=== PATIENT | female | born 1975 | race Caucasian/White ===

== ENCOUNTER → 2016-10-22 | Outpatient (CLI) | payer OTHER ==
[2016-10-22 12:48] LABS: Basophils % (A) 1 %; CH 30.8; CHCM 32.1; Eosinophils # (A) 0.2 k/uL (0-0.7); Eosinophils % (A) 2 %; HCT 40.7 % (34.0-46.0); HDW 2.19; Luc # (Auto) 0.15; Luc % (Auto) 2; Lymphocytes # (A) 2.1 k/uL (1.0-4.8); Lymphocytes % (A) 27 %; MCH 30.8 pg (25.0-35.0); MCV 96.2 fL (80.0-100.0); Mean Platelet Volume 7.1; Monocytes # (A) 0.4 k/uL (0-1.0); Monocytes % (A) 5 %; Neutrophils % (A) 64 %; RBC 4.22 m/uL (3.80-5.40); RDW 13.7 % (11.5-15.5); WBC 7.8 k/uL (3.8-10.6); WBC (Perox) 8.14
== END | disposition home or self-care (01) ==
LOC: LABPAT 11:25
PROVIDERS: ATTEND Obstetrics & Gynecology
DX: Z01.812 Encounter for preprocedural laboratory examination (principal)
CPT/HCPCS: 85025

== ENCOUNTER 2016-10-26 06:47 | Day surgery (SDC) | payer OTHER ==
[2016-10-25 13:08] VITALS: BMI 23.2
[~2016-10-26 06:47] MED LIST: DEXAMETHASONE SOD PHOSPHATE 10 MG/ML 1 ML VIAL IV ONE; LACTATED RINGERS 1,000 ML IV SCH; LIDOCAINE 1% 20 ML VIAL (10MG/ML) FOR IV START INTRADERMA PRN; MIDAZOLAM 2 MG/2 ML VIAL IV PRN; ONDANSETRON 4 MG/2 ML VIAL IVP ONE; Pre Op ABX Message 1 EACH MISC MISCELLANE ONE; SCOPOLAMINE 1.5MG/72HR PATCH TRANSDERM ONE
[2016-10-26] MEDS ORDERED: LACTATED RINGERS 1,000 ML IV ONE (06:51)
[2016-10-26] MEDS ORDERED: LIDOCAINE 1% 20 ML VIAL (10MG/ML) FOR IV START INTRADERMA ONE (07:02)
[2016-10-26] MEDS ORDERED: IODINE/POTASS IOD (LUGOLS) BTL TOPICAL ONE (07:25)
[2016-10-26] MEDS ORDERED: BUPIVACAINE (PF) 0.25% 30 ML VIAL SQ ONE ×2 (07:25)
--- NOTE | 2016-10-26 07:47 | P.HPOB ---
History of Present Illness H&P Date: 10/26/16 Chief Complaint: Planning and cervical dysplasia Ines is a 41-year-old female who is completed her family planning and desires permanent sterilization. She is scheduled for left scopic tubal occlusion with Filshie clips. 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 Risks/benefits/alternatives to this procedure were discussed with the patient in detail and all questions are answered prior to proceeding to the operating room. On physical exam vital signs are stable and afebrile. Heart regular, lungs clear, extremities without pain. Osteopathic exam unremarkable. Past Medical History Past Medical History: Asthma Additional Past Medical History / Comment(s): ASTHMA YOUNG CHILD. HX ABN PAP TESTS. History of Any Multi-Drug Resistant Organisms: None Reported Past Surgical History: No Surgical Hx Reported Past Anesthesia/Blood Transfusion Reactions: No Reported Reaction Additional Past Anesthesia/Blood Transfusion Reaction / Comment(s): NO PREVIOUS ANESTHESIA Past Psychological History: No Psychological Hx Reported Smoking Status: Current every day smoker Past Alcohol Use History: None Reported Additional Past Alcohol Use History / Comment(s): SMOKED SINCE 1993, < 1PPD. Past Drug Use History: None Reported - Past Family History Mother Family Medical History: No Reported History Medications and Allergies Home Medications Medication Instructions Recorded Confirmed Type No Known Home Medications [No 10/25/16 10/25/16 History Known Home Medications] Allergies Allergy/AdvReac Type Severity Reaction Status Date / Time No Known Allergies Allergy Verified 10/25/16 12:48 Exam Osteopathic Statement: *. No significant issues noted on an osteopathic structural exam other than those noted in the History and Physical/Consult. - Vital Signs Vital signs: Vital Signs Temp Pulse Resp BP Pulse Ox 10/26/16 06:59 98 F 90 18 127/65 98 Intake and Output 10/25/16 10/26/16 10/26/16 22:59 06:59 14:59 Intake Total 100 Balance 100 Intake: IV 100 - OBG Physical Exam Breast: both: normal (no masses) Abdomen: bowel sounds normal, no diffuse tenderness, no bruit present, no guarding noted, no hepatomegaly, no splenomegaly, no mass Vulva: both: normal Vagina: normal moisture, no discharge Cervix: lesion (STEPHANIE III) Uterus: normal size, normal contour Adnexa: both: normal
[2016-10-26] MEDS ORDERED: NEOSTIGMINE 1 MG/ML 10 ML VIAL ONE (07:53)
[2016-10-26] MEDS ORDERED: LIDOCAINE 1% INJ 10MG/ML (20 ML MDV) ONE (07:53)
[2016-10-26] MEDS ORDERED: ROCURONIUM BROMIDE 10 MG/ML 10 ML VIAL IV ONE (07:53)
[2016-10-26] MEDS ORDERED: MIDAZOLAM 2 MG/2 ML VIAL ONE (07:53)
[2016-10-26] MEDS ORDERED: SUCCINYLCHOLINE CHLORIDE 100 MG/5 ML SYR IV ONE (07:53)
[2016-10-26] MEDS ORDERED: PROPOFOL 10 MG/ML 20 ML VIAL IV ONE (07:53)
[2016-10-26] MEDS ORDERED: fentaNYL (PF) 50 MCG/ML 2 ML AMP ONE (07:53)
[2016-10-26] MEDS ORDERED: KETOROLAC 30 MG/ML 1 ML VIAL ONE (07:53)
[2016-10-26] MEDS ORDERED: GLYCOPYRROLATE 0.2 MG/ML 2 ML VIAL ONE (07:53)
[2016-10-26] MEDS ORDERED: FERRIC SUBSULFATE (MONSELS) JAR TOPICAL ONE (08:32)
--- NOTE | 2016-10-26 08:43 | P.OP ---
Date of Procedure: 10/26/16 Preoperative Diagnosis: Family planning and STEPHANIE-3 Postoperative Diagnosis: Same Procedure(s) Performed: Laparoscopic tubal occlusion Filshie clips and a LEEP colposcopy Anesthesia: MELISSAA Surgeon: Asa Maldonado Estimated Blood Loss (ml): 50 Urine output (ml): 10 Pathology: other (Anterior and posterior cervical pieces as well as endocervical portion) Condition: stable Disposition: same day Operative Findings: Incidental finding of bilateral simple ovarian cysts approximately 2 cm Description of Procedure: Patient was taken to the operating suite where a general anesthetic was found to be adequate. She was prepped and draped in the normal sterile fashion and placed in the dorsal lithotomy position. Initially a weighted speculum was inserted anterior lip cervix identified grasped single-toothed tenaculum. An acorn manipulator was then inserted without difficulty and speculum was removed. Red rubber catheter was used to drain the bladder of approximately 10 mL of clear yellow urine. Once is accomplished gloves were changed and attention was turned to abdominal portion procedure where by approximately 2 mL of quarter percent Marcaine were injected periumbilically and through this injected anesthetic a 5 mm skin incision was made. Through this incision a 5 mm trocar and sleeve were inserted without difficulty and once peritoneal placement was assured gas was allowed to fully insufflate the abdomen. Patient was then placed in steep Trendelenburg position and a second millimeters skin incision was made 3 cm above the pubic symphysis in the midline. Through this incision again under direct visualization an 8 mm port and sleeve were inserted. Once this was accomplished observations pelvis were noted there were simple cysts on both right and left ovary as she did not consent for drainage of cysts and they were not causing her any problems they were left alone. Arthritis and left tube had a Filshie clip applied 2 cm from uterine cornu seeing no bleeding from the mesosalpinx incidents of instruments were removed and gas was allowed to expel from the abdomen. Once this was accomplished 5 deep breaths were provided for 0 Vicryl was then used to close incision subcuticularly and the remaining local was injected around the incisions. Once this was accomplished it did return to the vagina and tenaculum and acorn were removed and a coated speculum was inserted into the vagina. Scope was then used to identify the cervix and the external cervix was coated with Lugol solution. First a posterior ectocervical piece was taken then an anterior piece and then a 1 cm loop was used to obtain an endocervical hat. Ball-tipped cautery was then used to obtain excellent hemostasis. There was a little more bleeding than I would normally see during this case partly due to that since his tenaculum causing bleeding at the outset of the case once hemostasis was felt to be obtained small amount of Monsel's was placed over the LEEP area and patient was taken to the recovery room in stable and satisfactory condition. Sponge, lap, needle counts were all correct 2. Plan - Discharge Summary New Discharge Prescriptions: Acetaminophen-Codeine 300-30mg [Tylenol #3] 1 tab PO Q4H PRN #30 tablet PRN Reason: Pain Ibuprofen [Motrin] 600 mg PO Q6HR PRN #30 tab PRN Reason: Pain Discharge Medication List Acetaminophen-Codeine 300-30mg [Tylenol #3] 1 tab PO Q4H PRN #30 tablet [Rx] Ibuprofen [Motrin] 600 mg PO Q6HR PRN #30 tab 10/26/16 [Rx] Follow up Appointment(s)/Referral(s): Asa Maldonado DO [Doctor of Osteopathic Medicine] - 2 Weeks Activity/Diet/Wound Care/Special Instructions: Complete pelvic rest for next 2-3 weeks. No heavy lifting, limit stairs and driving the next couple of days. If any high temperatures, heavy bleeding, or severe pain coated emergency room or call our office. Discharge Disposition: HOME SELF-CARE
[2016-10-26 08:51] VITALS: TEMP 97.6
[2016-10-26] MEDS: HYDROmorphone 1 MG/ML 1 ML SYRINGE IVP PRN ×2 (08:56→09:05)
[2016-10-26 09:03] VITALS: RESP 16
[2016-10-26] MEDS ORDERED: Acetaminophen-Codeine 300-30mg TAB PO ONE (09:56)
[2016-10-26 10:24] VITALS: BP 122/76; PULSE 54
== END 2016-10-26 11:13 | disposition home or self-care (01) ==
LOC: OR 06:47
PROVIDERS: ATTEND Obstetrics & Gynecology
DX: D06.0 Carcinoma in situ of endocervix (principal); N83.292 Other ovarian cyst, left side; N83.291 Other ovarian cyst, right side; Z30.2 Encounter for sterilization; J45.909 Unspecified asthma, uncomplicated; F17.200 Nicotine dependence, unspecified, uncomplicated
CPT/HCPCS: 58671; 57460; 81025; 88305; 88307; J2250; J1100; J2710; J2405; J2001; J3010; J1885; J1170; J0330; J2704

== ENCOUNTER → 2017-02-25 | Outpatient (CLI) | payer OTHER ==
--- NOTE | 2017-02-25 09:54 | MR ---
EXAMINATION TYPE: MR lumbar spine wo con DATE OF EXAM: 02/25/2017 COMPARISON: NONE HISTORY: Low back pain TECHNIQUE: Multiplanar, multisequence images of the lumbar spine were acquired. L1-L2: Normal disc appearance without desiccation. No herniation, protrusion or disc bulging. No ca nal stenosis is present. Foramina are patent bilaterally. L2-L3: Normal disc appearance without desiccation. No herniation, protrusion or disc bulging. No ca nal stenosis is present. Foramina are patent bilaterally. L3-L4: Normal disc appearance without desiccation. No herniation, protrusion or disc bulging. No ca nal stenosis is present. Foramina are patent bilaterally. L4-L5: Normal disc appearance without desiccation. No herniation, protrusion or disc bulging. No ca nal stenosis is present. Foramina are patent bilaterally. L5-S1: Minimal anterolisthesis grade 1 L4-5. There is endplate discogenic marrow signal change, spond ylosis. The listhesis contributes with a broad-based disc bulge which extends circumferentially bilat erally to cause bilateral foraminal encroachment. There is facet arthropathy change present. Suspect there may be spondylolysis at L5. No significant central stenosis. Lumbar segments are intact. No paraspinal masses are identified. Conus medullaris has a normal appe arance. There is a spinal curvature convex left centered at the mid lumbar spine. IMPRESSION: Mild degenerative disc disease. Suspect spondylolysis at L5 bilateral foraminal encroachment. Facet a rthropathy and scoliosis.
== END | disposition home or self-care (01) ==
LOC: RADMRIMAIN 09:02
PROVIDERS: ATTEND Internal Medicine
DX: M51.36 Other intervertebral disc degeneration, lumbar region (principal); M46.86 Other specified inflammatory spondylopathies, lumbar region; M41.86 Other forms of scoliosis, lumbar region
CPT/HCPCS: 72148

== ENCOUNTER 2023-04-30 19:27 | Emergency (ER) | payer OTHER ==
[2023-04-30 19:37] VITALS: BP 124/80; PULSE 67; RESP 20; TEMP 98.6
[2023-04-30] MEDS ORDERED: dexAMETHasone 2 MG TAB PO STA (20:01)
[2023-04-30] MEDS ORDERED: Acetaminophen-Codeine 300-30mg TAB PO STA (20:01)
[2023-04-30] MEDS ORDERED: CLINDAMYCIN 150 MG CAP PO STA (20:02)
[2023-04-30] MEDS ORDERED: ACET/COD 300 MG/30 MG STARTER PACK 6 TAB BTL PO STA (20:02)
--- NOTE | 2023-04-30 20:09 | ED ---
General Adult HPI - General Chief complaint: Dental/Oral Stated complaint: Toothache Time Seen by Provider: 04/30/23 19:37 Source: patient, RN notes reviewed, old records reviewed Mode of arrival: ambulatory Limitations: no limitations - History of Present Illness Initial comments: Patient Is a 47-year-old female who presents emergency Department complaining of dental pain. This is been a chronic issue for her. She is trying to find an oral surgeon to remove her teeth but has been having issues due to insurance problems. Denies any difficulty swallowing, breathing. Denies cough, fevers. Denies any chest pain or abdominal pain or nausea or vomiting. Was seen by her dentist last week and prescribed amoxicillin which and to help with the pain for a few days however it stopped. Finished it yesterday.. Is seeking stronger antibiotic as well as pain control. - Related Data Previous Rx's Medication Instructions Recorded Ibuprofen [Motrin] 600 mg PO Q6HR PRN #30 tab 10/26/16 Penicillin V Potassium [Pen Vee K] 500 mg PO QID 10 Days tab 08/17/17 clindamycin HCL [Cleocin] 450 mg PO Q6H 7 Days #84 cap 04/30/23 Allergies Allergy/AdvReac Type Severity Reaction Status Date / Time No Known Allergies Allergy Verified 04/30/23 19:37 Review of Systems ROS Statement: Those systems with pertinent positive or pertinent negative responses have been documented in the HPI. Review of Systems: CONST: Denies fever EYES: Denies blurry vision ENT: Endorses dental pain C/V: Denies Chest pain RESP: Denies shortness of breath GI: Denies abdominal pain : Denies dysuria SKIN: Denies rash. MSK: Denies joint pain. NEURO: Denies headache ROS Other: All systems not noted in ROS Statement are negative. Past Medical History Past Medical History: No Reported History Additional Past Medical History / Comment(s): OB history: She has had 4 vaginal deliveries, one spontaneous and one elective . O+, abs neg, Rub Imm, RPR NR, Hep B neg. GBS neg. History of Any Multi-Drug Resistant Organisms: None Reported Past Surgical History: Tubal Ligation Past Anesthesia/Blood Transfusion Reactions: No Reported Reaction Past Psychological History: No Psychological Hx Reported Smoking Status: Current every day smoker Past Alcohol Use History: None Reported Past Drug Use History: None Reported - Past Family History Mother Family Medical History: No Reported History General Exam - General Exam Comments Initial Comments: General: Appears in no acute distress. HEAD: Normal with no signs of head trauma. EYES: EOMI. ENT: Hearing grossly intact. No stridor. Uvula midline. Tongue not swollen. Tender to palpation over the posterior upper left molars. No obvious fluctuance or abscess present. No swelling of the floor the mouth. No evidence of Walter angina. RESPIRATORY: No respiratory distress. C/V: Regular rate and rhythm. ABD: Abdomen is nondistended. EXT: No obvious deformity. SKIN: No rashes or lesions observed on exposed skin. NEURO: Alert and oriented. Limitations: no limitations Course Vital Signs 04/30/23 19:35 Temperature 98.6 F Pulse Rate 67 Respiratory 20 Rate Blood Pressure 124/80 O2 Sat by Pulse 99 Oximetry Medical Decision Making - Medical Decision Making Was pt. sent in by a medical professional or institution (, PA, BUTTER PRINTER, urgent care, hospital, or retirement...) When possible be specific @ -No Did you speak to anyone other than the patient for history (EMS, parent, family, police, friend...)? What history was obtained from this source @ -No Did you review nursing and triage notes (agree or disagree)? Why? @ -I reviewed and agree with nursing and triage notes Were old charts reviewed (outside hosp., previous admission, EMS record, old EKG, old radiological studies, urgent care reports/EKG's, retirement records)? Report findings @ -No old charts were reviewed Differential Diagnosis (chest pain, altered mental status, abdominal pain women, abdominal pain men, vaginal bleeding, weakness, fever, dyspnea, syncope, headache, dizziness, GI bleed, back pain, seizure, CVA, palpatations, mental health, musculoskeletal)? @ -Toothache, cavity, periapical abscess. This list is not all inclusive. EKG interpreted by me (3pts min.). @ -None done X-rays interpreted by me (1pt min.). @ -None done CT interpreted by me (1pt min.). @ -None done U/S interpreted by me (1pt. min.). @ -None done What testing was considered but not performed or refused? (CT, X-rays, U/S, labs)? Why? @ -None What meds were considered but not given or refused? Why? @ -None Did you discuss the management of the patient with other professionals (professionals i.e. , PA, BUTTER PRINTER, lab, RT, psych nurse, vp digital marketing social media and crm, casualty claim adjuster, teacher, ethics officer, showcase maker)? Give summary @ -No Was smoking cessation discussed for >3mins.? @ -No Was critical care preformed (if so, how long)? @ -No Were there social determinants of health that impacted care today? How? (Homelessness, low income, unemployed, alcoholism, drug addiction, transportation, low edu. Level, literacy, decrease access to med. care, residential, rehab)? @ -No Was there de-escalation of care discussed even if they declined (Discuss DNR or withdrawal of care, Hospice)? DNR status @ -No What co-morbidities impacted this encounter? (DM, HTN, Smoking, COPD, CAD, Cancer, CVA, ARF, Chemo, Hep., AIDS, mental health diagnosis, sleep apnea, morbid obesity)? @ -None Was patient admitted / discharged? Hospital course, mention meds given and route, prescriptions, significant lab abnormalities, going to OR and other pertinent info. @ -Based on the patient's presentation and physical exam, presents with acute on chronic tooth pain. No obvious findings on exam other than pain. She is requesting antibiotics and will be started on clindamycin and given a dose of Decadron, as well as given a dose of pain medications. Patient was in agreement this plan. Vital signs within acceptable limits. No evidence of Walter angina on exam. A starter pack of Tylenol 3's were provided to the patient. Strict return precautions discussed. Recommended follow-up with dentistry. I will provide the patient with a prescription for clindamycin. I instructed the patient to follow up with their PCP in the next 1-3 days. I provided contact information for follow up with Dr. Colbert. I explained that the patient should return to the emergency department if they experience any worsening symptoms. Strict return precautions were discussed with the patient. The patient expressed understanding of these instructions. I answered all questions that the patient had. The patient was discharged home in good condition with their prescriptions and follow up information. Undiagnosed new problem with uncertain prognosis? @ -No Drug Therapy requiring intensive monitoring for toxicity (Heparin, Nitro, Insulin, Cardizem)? @ -No Were any procedures done? @ -No Diagnosis/symptom? @ -Toothache Acute, or Chronic, or Acute on Chronic? @ -Acute on chronic Uncomplicated (without systemic symptoms) or Complicated (systemic symptoms)? @ -Uncomplicated Side effects of treatment? @ -No Exacerbation, Progression, or Severe Exacerbation? @ -No Poses a threat to life or bodily function? How? (Chest pain, [place], [place], pneumonia, PE, COPD, DKA, ARF, appy, cholecystitis, CVA, Diverticulitis, Homicidal, Suicidal, threat to staff... and all critical care pts) @ -No Disposition Clinical Impression: Toothache Disposition: HOME SELF-CARE Condition: Good Instructions (If sedation given, give patient instructions): Toothache (ED) Prescriptions: clindamycin HCL [Cleocin] 450 mg PO Q6H 7 Days #84 cap Is patient prescribed a controlled substance at d/c from ED?: No Referrals: Kenisha Albert [Primary Care Provider] - 1-2 days Jese Colbert DDS [STAFF PHYSICIAN] - 1-2 days Time of Disposition: 20:06
== END 2023-04-30 20:28 | disposition home or self-care (01) ==
LOC: EC 19:27
DX: K08.89 Other specified disorders of teeth and supporting structures (principal); F17.200 Nicotine dependence, unspecified, uncomplicated
CPT/HCPCS: 99282; J8540

== ENCOUNTER 2024-10-01 12:32 | Emergency (ER) | payer OTHER ==
[2024-10-01 12:49] VITALS: RESP 18; TEMP 98.4
[2024-10-01 13:30] LABS: Basophils # (A) 0.1 k/uL (0-0.2); Basophils % (A) 1 %; Eosinophils # (A) 0.4 k/uL (0-0.7); Eosinophils % (A) 4 %; HCT 43.8 % (34.0-46.0); HGB 14.2 gm/dL (11.4-16.0); Lymphocytes # (A) 2.6 k/uL (1.0-4.8); Lymphocytes % (A) 31 %; MCH 31.1 pg (25.0-35.0); MCHC 32.5 g/dL (31.0-37.0); MCV 95.8 fL (80.0-100.0); Mean Platelet Volume 7.4; Monocytes # (A) 0.5 k/uL (0-1.0); Monocytes % (A) 5 %; Neutrophils # (A) 4.9 k/uL (1.3-7.7); Neutrophils % (A) 58 %; Platelet Count 360 k/uL (150-450); RBC 4.58 m/uL (3.80-5.40); RDW 13.3 % (11.5-15.5); WBC 8.5 k/uL (3.8-10.6)
[2024-10-01 13:35] LABS: Appearance,Urine Cloudy (Clear); Bilirubin,Urine Negative (Negative); Blood,Urine Negative (Negative); Color,Urine Yellow; Glucose,Urine (UA) Negative (Negative); Ketones,Urine Negative (Negative); Leukocyte Esterase,Urine Moderate (Negative); Mucus,Urine Few /hpf; Nitrite,Urine Negative (Negative); PH, Urine 5.5 (5.0-8.0); Protein,Urine Trace (Negative); RBC,Urine 9 /hpf (0-5); Specific Gravity,Urine 1.032 (1.001-1.035); Squamous Epithelial Cell,Urine 2 /hpf (0-4); WBC,Urine 23 /hpf (0-5)
[2024-10-01] MEDS: ONDANSETRON 4 MG/2 ML VIAL IVP STA (13:36)
[2024-10-01] MEDS: SODIUM CHLORIDE 0.9% 1,000 ML IV STA (13:36)
[2024-10-01] MEDS: MORPHINE SULFATE 4 MG/ML SYRINGE IVP STA ×2 (13:37→15:01)
[2024-10-01] MEDS: KETOROLAC 15 MG/ML 1 ML VIAL IVP STA (13:37)
[2024-10-01 13:53] LABS: ALT 16 U/L (4-34); African American GFR (CKD) >90 (>60 ml/min/1.73 sqM); Anion Gap 9 mmol/L; Blood Urea Nitrogen 9 mg/dL (7-17); Calcium 10.5 mg/dL (8.4-10.2); Carbon Dioxide 21 mmol/L (22-30); Chloride 107 mmol/L (98-107); Glucose 101 mg/dL (74-99); Non-African American GFR(CKD) >90 (>60 ml/min/1.73 sqM); Sodium 137 mmol/L (137-145); Total Bilirubin 0.8 mg/dL (0.2-1.3)
--- NOTE | 2024-10-01 13:58 | ED ---
General Adult HPI - General Chief complaint: Abdominal Pain Stated complaint: Poss Kidney Stones Time Seen by Provider: 10/01/24 13:00 Source: patient, RN notes reviewed, old records reviewed Mode of arrival: ambulatory Limitations: no limitations - History of Present Illness Initial comments: Patient is a 49-year-old female presents emergency department complaining of abdominal pain. States she is having bilateral flank and abdominal pain however primarily on the left side. Radiates down towards her groin as well as to her back. States she does have a history of urinary issues and overactive bladder. No history of stones. Has not noticed any blood in her urine. Denies any obvious dysuria. Denies vaginal discharge or bleeding. States she is not . Denies any diarrhea. Does endorse some mild nausea. No other significant medical problems. Presents over concern for the flank and abdominal pain. - Related Data Home Medications Medication Instructions Recorded Confirmed Acetaminophen Tab [Tylenol Tab] 1,000 mg PO Q6HR PRN 10/01/24 10/01/24 Cholecalciferol (Vitamin D3) 50 mcg PO HS 10/01/24 10/01/24 [Vitamin D3 (50 Mcg = 2000 Iu)] oxyBUTYnin chloride [oxyBUTYnin 5 mg PO HS 10/01/24 10/01/24 chloride ER] Allergies Allergy/AdvReac Type Severity Reaction Status Date / Time No Known Allergies Allergy Verified 10/01/24 15:30 Review of Systems ROS Statement: Those systems with pertinent positive or pertinent negative responses have been documented in the HPI. ROS Other: All systems not noted in ROS Statement are negative. Past Medical History Past Medical History: No Reported History Additional Past Medical History / Comment(s): OB history: She has had 4 vaginal deliveries, one spontaneous and one elective . O+, abs neg, Rub Imm, RPR NR, Hep B neg. GBS neg. History of Any Multi-Drug Resistant Organisms: None Reported Past Surgical History: Tubal Ligation Past Anesthesia/Blood Transfusion Reactions: No Reported Reaction Past Psychological History: No Psychological Hx Reported Smoking Status: Current every day smoker Past Alcohol Use History: None Reported Past Drug Use History: Marijuana - Past Family History Mother Family Medical History: No Reported History General Exam - General Exam Comments Initial Comments: Review of Systems: CONST: Denies fever EYES: Denies blurry vision ENT: Denies nasal congestion C/V: Denies Chest pain RESP: Denies shortness of breath GI: Endorses left flank pain : Denies dysuria SKIN: Denies rash. MSK: Denies joint pain. NEURO: Denies headache Limitations: no limitations Course Vital Signs 10/01/24 10/01/24 10/01/24 12:46 15:00 16:54 Temperature 98.4 F Pulse Rate 57 L 64 80 Respiratory 18 18 18 Rate Blood Pressure 131/80 137/82 131/74 O2 Sat by Pulse 100 100 98 Oximetry Medical Decision Making - Medical Decision Making Was pt. sent in by a medical professional or institution (, PA, CAD DRAFTSMAN, urgent care, hospital, or senior care...) When possible be specific @ -No Did you speak to anyone other than the patient for history (EMS, parent, family, police, friend...)? What history was obtained from this source @ -No Did you review nursing and triage notes (agree or disagree)? Why? @ -I reviewed and agree with nursing and triage notes Were old charts reviewed (outside hosp., previous admission, EMS record, old EKG, old radiological studies, urgent care reports/EKG's, senior care records)? Report findings @ -No old charts were reviewed Differential Diagnosis (chest pain, altered mental status, abdominal pain women, abdominal pain men, vaginal bleeding, weakness, fever, dyspnea, syncope, headache, dizziness, GI bleed, back pain, seizure, CVA, palpatations, mental health, musculoskeletal)? @ -Differential Abdominal Pain Women: Appendicitis, Cholecystitis, diverticulosis, ischemic bowel, pancreatitis, hepatitis, UTI, gastroenteritis, AAA, incarcerated hernia, bowel obstruction, constipation, inflammatory bowel, hepatitis, peptic ulcer disease, splenic infarction, perforated viscus, vulvitis, ovarian torsion, PID, kidney stone, placenta abruption, this is not meant to be an all-inclusive list EKG interpreted by me (3pts min.). @ -None done X-rays interpreted by me (1pt min.). @ -None done CT interpreted by me (1pt min.). @ -CT imaging returned remarkable for a uterine masslike structure. Patient has some lymphadenopathy as well. U/S interpreted by me (1pt. min.). @ -Pelvic ultrasound revealed a right sided hemorrhagic follicle as well as endometrial debris suggestive of blood products which fits with patient's story as well as uterine mass. Fibroid not excluded. What testing was considered but not performed or refused? (CT, X-rays, U/S, labs)? Why? @ -None What meds were considered but not given or refused? Why? @ -None Did you discuss the management of the patient with other professionals (professionals i.e. , PA, CAD DRAFTSMAN, lab, RT, psych nurse, social and political studies professor, collar feller, teacher, corporation officer, disease case manager rn)? Give summary @ -No Was smoking cessation discussed for >3mins.? @ -No Was critical care preformed (if so, how long)? @ -No Were there social determinants of health that impacted care today? How? (Homelessness, low income, unemployed, alcoholism, drug addiction, transport ation, low edu. Level, literacy, decrease access to med. care, usp, rehab)? @ -No Was there de-escalation of care discussed even if they declined (Discuss DNR or withdrawal of care, Hospice)? DNR status @ -No What co-morbidities impacted this encounter? (DM, HTN, Smoking, COPD, CAD, Cancer, CVA, ARF, Chemo, Hep., AIDS, mental health diagnosis, sleep apnea, morbid obesity)? @ -None Was patient admitted / discharged? Hospital course, mention meds given and route, prescriptions, significant lab abnormalities, going to OR and other pertinent info. @ -Based on the patient's presentation and physical exam, presents emergency department with left flank pain. We will obtain abdominal amatory studies as well as CT imaging. She was in agreement this plan. She be given IV fluids, analgesia medications, nausea meds. Vital signs are within acceptable meds. Patient's laboratory studies returned remarkable for normal urine. Patient does have some bleeding. No evidence of UTI. I discussed with the patient. She does states she has been having some uterine bleeding that has been dysfunctional. Believes she is going through menopause. We discussed her CT imaging findings and discussed that the uterine mass could be a fibroid but could also be something such as malignancy and cancer. She expressed understanding. We will obtain an ultrasound while she is here in the department and recommended strict follow-up with JUNIOR SALES REPRESENTATIVE and PCP. Patient was in agreement this plan. Transvaginal ultrasound revealed possible fibroid. Patient does have some blood products in the uterus which fits with her symptoms. Also has a hemorrhagic follicle of the right ovary. No evidence of torsion. After the patient. She will be discharged home. She will follow-up with PCP. Given follow-up for JUNIOR SALES REPRESENTATIVE. Patient was in agreement this plan. Strict return precautions discussed. Given a starter pack of Tylenol 3 and Zofran for home. Undiagnosed new problem with uncertain prognosis? @ -No Drug Therapy requiring intensive monitoring for toxicity (Heparin, Nitro, Insulin, Cardizem)? @ -No Were any procedures done? @ -No Diagnosis/symptom? @ -Uterine mass, abdominal pain Acute, or Chronic, or Acute on Chronic? @ -Acute Uncomplicated (without systemic symptoms) or Complicated (systemic symptoms)? @ -Complicated Side effects of treatment? @ -None Exacerbation, Progression, or Severe Exacerbation] @ -No Poses a threat to life or bodily function? @ -Unlikely at this time - Lab Data Result diagrams: 10/01/24 12:54 10/01/24 12:54 Lab Results 10/01/24 10/01/24 10/01/24 Range/Units 12:54 12:54 12:54 WBC 8.5 (3.8-10.6) k/uL RBC 4.58 (3.80-5.40) m/uL Hgb 14.2 (11.4-16.0) gm/dL Hct 43.8 (34.0-46.0) % MCV 95.8 (80.0-100.0) fL MCH 31.1 (25.0-35.0) pg MCHC 32.5 (31.0-37.0) g/dL RDW 13.3 (11.5-15.5) % Plt Count 360 (150-450) k/uL MPV 7.4 Neutrophils % 58 % Lymphocytes % 31 % Monocytes % 5 % Eosinophils % 4 % Basophils % 1 % Neutrophils # 4.9 (1.3-7.7) k/uL Lymphocytes # 2.6 (1.0-4.8) k/uL Monocytes # 0.5 (0-1.0) k/uL Eosinophils # 0.4 (0-0.7) k/uL Basophils # 0.1 (0-0.2) k/uL Sodium 137 (137-145) mmol/L Potassium 4.8 (3.5-5.1) mmol/L Chloride 107 (98-107) mmol/L Carbon Dioxide 21 L (22-30) mmol/L Anion Gap 9 mmol/L BUN 9 (7-17) mg/dL Creatinine 0.63 (0.52-1.04) mg/dL Est GFR (CKD-EPI)AfAm >90 (>60 ml/min/1.73 sqM) Est GFR (CKD-EPI)NonAf >90 (>60 ml/min/1.73 sqM) Glucose 101 H (74-99) mg/dL Plasma Lactic Acid Johnathon (0.7-2.0) mmol/L Calcium 10.5 H (8.4-10.2) mg/dL Total Bilirubin 0.8 (0.2-1.3) mg/dL AST 35 (14-36) U/L ALT 16 (4-34) U/L Alkaline Phosphatase 56 (38-126) U/L Total Protein 7.5 (6.3-8.2) g/dL Albumin 4.3 (3.5-5.0) g/dL Urine Color Yellow Urine Appearance Cloudy H (Clear) Urine pH 5.5 (5.0-8.0) Ur Specific [place] 1.032 (1.001-1.035) Urine Protein Trace H (Negative) Urine Glucose (UA) Negative (Negative) Urine Ketones Negative (Negative) Urine Blood Negative (Negative) Urine Nitrite Negative (Negative) Urine Bilirubin Negative (Negative) Urine Urobilinogen 3.0 (<2.0) mg/dL Ur Leukocyte Esterase Moderate H (Negative) Urine RBC 9 H (0-5) /hpf Urine WBC 23 H (0-5) /hpf Ur Squamous Epith Cells 2 (0-4) /hpf Urine Mucus Few H (None) /hpf 10/01/24 Range/Units 12:54 WBC (3.8-10.6) k/uL RBC (3.80-5.40) m/uL Hgb (11.4-16.0) gm/dL Hct (34.0-46.0) % MCV (80.0-100.0) fL MCH (25.0-35.0) pg MCHC (31.0-37.0) g/dL RDW (11.5-15.5) % Plt Count (150-450) k/uL MPV Neutrophils % % Lymphocytes % % Monocytes % % Eosinophils % % Basophils % % Neutrophils # (1.3-7.7) k/uL Lymphocytes # (1.0-4.8) k/uL Monocytes # (0-1.0) k/uL Eosinophils # (0-0.7) k/uL Basophils # (0-0.2) k/uL Sodium (137-145) mmol/L Potassium (3.5-5.1) mmol/L Chloride (98-107) mmol/L Carbon Dioxide (22-30) mmol/L Anion Gap mmol/L BUN (7-17) mg/dL Creatinine (0.52-1.04) mg/dL Est GFR (CKD-EPI)AfAm (>60 ml/min/1.73 sqM) Est GFR (CKD-EPI)NonAf (>60 ml/min/1.73 sqM) Glucose (74-99) mg/dL Plasma Lactic Acid Johnathon 1.3 (0.7-2.0) mmol/L Calcium (8.4-10.2) mg/dL Total Bilirubin (0.2-1.3) mg/dL AST (14-36) U/L ALT (4-34) U/L Alkaline Phosphatase (38-126) U/L Total Protein (6.3-8.2) g/dL Albumin (3.5-5.0) g/dL Urine Color Urine Appearance (Clear) Urine pH (5.0-8.0) Ur Specific [place] (1.001-1.035) Urine Protein (Negative) Urine Glucose (UA) (Negative) Urine Ketones (Negative) Urine Blood (Negative) Urine Nitrite (Negative) Urine Bilirubin (Negative) Urine Urobilinogen (<2.0) mg/dL Ur Leukocyte Esterase (Negative) Urine RBC (0-5) /hpf Urine WBC (0-5) /hpf Ur Squamous Epith Cells (0-4) /hpf Urine Mucus (None) /hpf Disposition Clinical Impression: Uterine mass, Abdominal pain Disposition: HOME SELF-CARE Condition: Good Instructions (If sedation given, give patient instructions): Abdominal Pain (ED) Additional Instructions: Your CT and ultrasound reveals an ovarian mass that could be a benign fibroid however further testing is needed. Radiology recommending MRI. Please follow- up with JUNIOR SALES REPRESENTATIVE as well as your PCP within the next 1 to 3 days. Return if any worsening symptoms. Is patient prescribed a controlled substance at d/c from ED?: No Referrals: Josue Spain [Primary Care Provider] - 1-2 days Ashley Robert DO [Doctor of Osteopathic Medicine] - 1-2 days Time of Disposition: 16:48
[2024-10-01 13:59] LABS: AST 35 U/L (14-36); Albumin 4.3 g/dL (3.5-5.0); Alkaline Phosphatase 56 U/L (38-126); Potassium 4.8 mmol/L (3.5-5.1); Total Protein 7.5 g/dL (6.3-8.2)
--- NOTE | 2024-10-01 14:15 | CT ---
EXAMINATION TYPE: CT abdomen pelvis wo con CT DLP: 398.2 mGycm, Automated exposure control for dose reduction was used. DATE OF EXAM: 10/01/2024 2:03 PM COMPARISON: None CLINICAL INDICATION:Female, 49 years old with history of abd pain, left flank pain; LT flank pain TECHNIQUE: Standard CT of the abdomen and pelvis without IV or oral contrast. Lack of IV or oral co ntrast limits evaluation of solid and hollow organ viscera. Coronal and sagittal reformats were perfo rmed. FINDINGS: LOWER CHEST: Few solid pulmonary micronodules identified within the lung bases. Largest measures up t o 2.9 mm within the right lower lobe and largest within the left lower lobe measures up to 4.5 mm. ABDOMEN LIVER: Unremarkable noncontrast appearance. GALLBLADDER AND BILE DUCTS: Unremarkable. PANCREAS: Unremarkable. SPLEEN: Unremarkable. ADRENAL GLANDS: Unremarkable. KIDNEYS AND URETERS: No evidence of hydronephrosis. No left renal calculi. Nonobstructive right renal upper pole 2 mm calculus. PELVIS BLADDER: Underdistended which limits evaluation. REPRODUCTIVE: Bilateral tubal ligation clips. 2V uterus with questionable lesion within the central u terus with eccentric position of the endometrium to the right. ABDOMEN & PELVIS STOMACH AND BOWEL: Stomach and duodenum are unremarkable. The appendix is within normal limits. No fo josephine bowel wall thickening or surrounding inflammatory changes. No evidence of bowel obstruction. PERITONEUM: No evidence of pneumoperitoneum or free fluid. VASCULATURE: Mild atherosclerotic calcifications are present throughout the abdominal aorta and its b ranches. No evidence of aortic aneurysm. Pelvic phleboliths. MUSCULOSKELETAL: No acute osseous abnormalities. No aggressive osseous lesion. Degenerative changes o f the pubic symphysis. Grade 1 anterolisthesis of L5 on S1 with bilateral pars defects. Minimal levoc urvature of the lumbar spine. LYMPH NODES: Enlarged para-aortic lymph nodes with exams including a left para-aortic lymph node rigoberto uring up to 1.6 in short axis (series 201, image 57). Evaluation is limited due to lack of intravenou s contrast. There is suspected bilateral prominent to enlarged common iliac chain lymph nodes. SOFT TISSUE/ABDOMINAL WALL: Unremarkable IMPRESSION: 1. No evidence for obstructive uropathy. The right renal calculus. 2. Nonspecific para-aortic lymphadenopathy with additional suspected bilateral common iliac chain lym ph nodes however evaluation is limited due to lack of intravenous contrast. Further workup is recomme nded. 3. Questionable intrauterine mass which could represent a fibroid versus other with neoplasm not excl uded. Recommend further evaluation with pelvic ultrasound. [facility], , 10/01/2024 2:13 PM
--- NOTE | 2024-10-01 16:32 | US ---
EXAMINATION TYPE: US transvaginal DATE OF EXAM: 10/01/2024 COMPARISON: NONE CLINICAL INDICATION: Female, 49 years old with history of uterine mass, pain; Abnormal CT. Vaginal l eakage. Odor. TECHNIQUE: Transvaginal (TV). Transvaginal grayscale sonographic images of the pelvis were acquired. Doppler imaging: Color Doppler Images were obtained. Spectral doppler images were obtained. FINDINGS: Date of LMP: Unknown, EXAM MEASUREMENTS: Uterus: 8.4 x 5.4 x 4.1 cm Endometrial Stripe: 0.3 cm Right Ovary: cm Left Ovary: 2.7 x 1.5 x 2.2 cm 1. Uterus: Anteverted Central hypoechoic lesion with relative position to endometrium - 3.1 x 3.2 x 2.6 cm 2. Endometrium: Fluid within endometrial canal with moving echoes. 3. Right Ovary: Limited visualization of hypoechoic lesion right ovary = 1.8 x 1.6 x 1.8 cm 4. Left Ovary: limited visualization Spectral, color and waveform doppler imaging shows good arterial and venous flow within the ovaries ; there is no evidence for ovarian torsion. 5. Bilateral Adnexa: No free fluid 6. Posterior cul-de-sac: No free fluid 7. Cervix- Appears enlarged in size, possible mass vs inflamation IMPRESSION: 1. Endometrial debris suggestive of blood products findings somewhat similar to prior CT same day.. 2. Fibroid not excluded. Consider MRI for further evaluation. 3. Appropriate arterial and venous spectral waveforms to the ovaries. 4. Right ovarian lesion possibly involuting hemorrhagic follicle. [facility], , 10/01/2024 4:29 PM
[2024-10-01 16:55] VITALS: BP 131/74; PULSE 80
[2024-10-01] MEDS: ONDANSETRON 4 MG ODT STARTER PACK 2 TAB BTL PO STA (17:01)
[2024-10-01] MEDS: ACET/COD 300 MG/30 MG STARTER PACK 6 TAB BTL PO STA (17:01)
== END 2024-10-01 17:03 | disposition home or self-care (01) ==
LOC: EC 12:32
DX: N85.8 Other specified noninflammatory disorders of uterus (principal); F17.200 Nicotine dependence, unspecified, uncomplicated
CPT/HCPCS: 36415; 80053; 83605; 85025; 81001; 93975; 76830; 74176; 99284; 96374; 96375 ×2; 96376; 96361; J2270; J2405; J1885; S0119

== ENCOUNTER 2024-10-28 06:13 | Emergency (ER) | payer OTHER ==
--- NOTE | 2024-10-28 06:42 | ED ---
Abdominal Pain HPI - General Source: patient, RN notes reviewed Mode of arrival: ambulatory Limitations: no limitations - History of Present Illness MD Complaint: abdominal pain <Shaunna Salmeron - Last Filed: 11/01/24 11:15> <Tristin Rutledge - Last Filed: 11/03/24 07:34> - General Chief Complaint: Abdominal Pain Stated Complaint: Back pain, Abdominal Pain Time Seen by Provider: 10/28/24 06:38 - History of Present Illness Initial Comments: This is a 49-year-old female who presents to the emergency department for lower abdominal pain. States that it started last week but seems to be getting worse. She was evaluated here last month for abdominal pain and had abnormal findings in both her uterus and lymph nodes. States that she is waiting to have follow- up imaging to further evaluate these areas. States that the pain feels similar to then but worse. Her PCP prescribed her Tylenol with codeine, but states that it is not effective and she is barely able to function. She does have some nausea associated with this. Denies any changes in bowel or bladder habits. (Shaunna Salmeron) - Related Data Home Medications Medication Instructions Recorded Confirmed Acetaminophen Tab [Tylenol Tab] 1,000 mg PO Q6HR PRN 10/01/24 11/01/24 Cholecalciferol (Vitamin D3) 50 mcg PO HS 10/01/24 11/01/24 [Vitamin D3 (50 Mcg = 2000 Iu)] oxyBUTYnin chloride [oxyBUTYnin 5 mg PO HS 10/01/24 11/01/24 chloride ER] Previous Rx's Medication Instructions Recorded HYDROcodone/APAP 7.5-325MG [[place] 1 tab PO Q4H PRN 3 Days #18 tab 10/28/24 7.5-325] Ibuprofen [Motrin] 800 mg PO Q8H PRN #30 tab 10/28/24 Ondansetron Odt [Zofran Odt] 4 mg PO Q8HR PRN #15 tab 10/28/24 Allergies Allergy/AdvReac Type Severity Reaction Status Date / Time No Known Allergies Allergy Verified 11/01/24 19:28 Review of Systems ROS Other: All systems not noted in ROS Statement are negative. <Shaunna Salmeron - Last Filed: 11/01/24 11:15> ROS Other: All systems not noted in ROS Statement are negative. <Tristin Rutledge - Last Filed: 11/03/24 07:34> ROS Statement: Those systems with pertinent positive or pertinent negative responses have been documented in the HPI. Past Medical History Past Medical History: No Reported History Additional Past Medical History / Comment(s): OB history: She has had 4 vaginal deliveries, one spontaneous and one elective . O+, abs neg, Rub Imm, RPR NR, Hep B neg. GBS neg. History of Any Multi-Drug Resistant Organisms: None Reported Past Surgical History: Tubal Ligation Past Anesthesia/Blood Transfusion Reactions: No Reported Reaction Past Psychological History: No Psychological Hx Reported Smoking Status: Current every day smoker Past Alcohol Use History: None Reported Past Drug Use History: Marijuana - Past Family History Mother Family Medical History: No Reported History <Shaunna Salmeron - Last Filed: 11/01/24 11:15> General Exam Limitations: no limitations General appearance: alert, in distress Head exam: Present: atraumatic, normocephalic, normal inspection Respiratory exam: Present: normal lung sounds bilaterally. Absent: respiratory distress, wheezes, rales, rhonchi, stridor Cardiovascular Exam: Present: regular rate, normal rhythm, normal heart sounds. Absent: systolic murmur, diastolic murmur, rubs, gallop, clicks GI/Abdominal exam: Present: soft, tenderness (Lower abdomen), normal bowel sounds. Absent: distended Neurological exam: Present: alert, oriented X3, CN II-XII intact Psychiatric exam: Present: normal affect, normal mood Skin exam: Present: warm, dry, intact, normal color. Absent: rash <Shaunna Salmeron - Last Filed: 11/01/24 11:15> Course Vital Signs 10/28/24 10/28/24 10/28/24 06:19 11:42 11:51 Temperature 98 F 98.1 F 98.1 F Pulse Rate 86 68 68 Respiratory 18 22 22 Rate Blood Pressure 142/74 138/83 138/83 O2 Sat by Pulse 100 99 Oximetry Medical Decision Making - Lab Data Result diagrams: 10/28/24 06:55 10/28/24 06:55 - Radiology Data Radiology results: report reviewed, image reviewed <Shaunna Salmeron - Last Filed: 11/01/24 11:15> - Lab Data Result diagrams: 10/28/24 06:55 10/28/24 06:55 <Tristin Rutledge - Last Filed: 11/03/24 07:34> - Medical Decision Making This is a 49-year-old female who presents to the emergency department for a bdominal pain. Was pt. sent in by a medical professional or institution? @ -No Did you speak to anyone other than the patient for history? @ -No Did you review nursing and triage notes? @ -Yes, and I agree, it is accurate with regards to the patient's symptoms. Were old charts reviewed? @ -CT scan of the abdomen and pelvis from 10/01/2024 demonstrating nonspecific para-aortic lymphadenopathy with suspected additional bilateral, common iliac chain lymph nodes as well as a questionable intrauterine mass. Transvaginal ultrasound from that day demonstrates endometrial debris suggestive of blood products. They advised that a fibroid is not excluded and an MRI was advised. She also does have a probable hemorrhagic follicle on the right ovary. Differential Diagnosis? @ -Differential Abdominal Pain Women: Appendicitis, Cholecystitis, diverticulosis, ischemic bowel, pancreatitis, hepatitis, UTI, gastroenteritis, AAA, incarcerated hernia, bowel obstruction, constipation, inflammatory bowel, hepatitis, peptic ulcer disease, splenic infarction, perforated viscus, vulvitis, ovarian torsion, PID, kidney stone, placenta abruption, this is not meant to be an all-inclusive list EKG interpreted by me (3pts min.)? @ -Not obtained X-rays interpreted by me (1pt min.)? @ -Not obtained CT interpreted by me (1pt min.)? @ -CT scan of the abdomen and pelvis obtained. My interpretation identifies wall thickening of the cervix and uterus. U/S interpreted by me (1pt. min.)? @ -Transvaginal ultrasound obtained. My interpretation identifies a dilated endometrium. What testing was considered but not performed? (CT, X-rays, U/S, labs)? Why? @ -None What meds were considered but not given? Why? @ -None Did you discuss the management of the patient with other professionals? @ -No Did you reconcile home meds? @ -No Was smoking cessation discussed for >3mins.? @ -I discussed smoking cessation for greater than 3 minutes. The risk of smoking were discussed with the patient including but not limited to risks of cancer, stroke, coronary artery disease and COPD. Also discussed with patient were multiple methods of quitting smoking. Lastly we discussed the financial cost of smoking. Was critical care preformed (if so, how long)? @ -No Were there social determinants of health that impacted care today? How? (Homelessness, low income, unemployed, alcoholism, drug addiction, transportatio n, low edu. Level, literacy, decrease access to med. care, nursing home, rehab)? @ -No Was there de-escalation of care discussed even if they declined? (Discuss DNR or withdrawal of care, Hospice)? @ -No What co-morbidities impacted this encounter? (DM, HTN, Smoking, COPD, CAD, Cancer, CVA, Hep., AIDS, mental health diagnosis, sleep apnea, morbid obesity)? @ -Smoking Was patient admitted / discharged? @ -Discharged. Lab work unremarkable. Urinalysis demonstrates a small elevation in WBCs and bacteria. A CT scan was done last month that demonstrated irregular lymphadenopathy that needed follow-up. She then had a pelvic ultrasound and was advised to have a follow-up MRI of the pelvis. Given that symptoms have since worsened and findings at that point were suspicious, potentially of malignancy, repeat CT scan was obtained. This demonstrated abnormal wall thickening of the cervix and lower uterine segment with gas and fluid. She has endometrial fluid with an eccentric endometrial mass identified concerning for malignancy. There are also multiple enlarged periaortic and pericaval and bilateral common iliac chain lymph nodes with necrotic appearance highly concerning for metastasis. The lymph nodes also appear to have enlarged and multiplied. Transvaginal ultrasound was subsequently obtained. This demonstrated cervical bulkiness which could represent neoplasm versus infectious/inflammatory process. She also has a dilated fluid-filled endometrium causing stenosis and a uterine body heterogeneous mass which may represent a fibroid versus other etiologies. Findings reviewed with the louis ent. Symptoms well-controlled in the emergency department. Discussed that she needs to call her PCP first thing in the morning regarding these findings for a stat referral to gynecology due to the concern for malignancy. Prescription for pain and nausea medication prescribed for symptomatic management. We discussed strict return parameters and close follow-up with her PCP. Patient discharged home in stable condition. Case discussed with ED attending Dr. Rutledge. Return precautions reviewed in depth, the patient is instructed to return to the emergency department with any new, worsening, or concerning symptoms. Patient verbalized understanding. Undiagnosed new problem with uncertain prognosis? @ -None Drug Therapy requiring intensive monitoring for toxicity (Heparin, Nitro, Insulin, Cardizem)? @ -None Were any procedures done? @ -None Diagnosis/symptom? @ -Abnormal CT scan, lymph nodes enlarged, cervix and uterine abnormality Acute, or Chronic, or Acute on Chronic? @ -Acute Uncomplicated (without systemic symptoms) or Complicated (systemic symptoms)? @ -Complicated Side effects of treatment? @ -None Exacerbation, Progression, or Severe Exacerbation] @ -Not applicable Poses a threat to life or bodily function? @ -This will depend on the cause (Shaunna Salmeron) - Lab Data Lab Results 10/28/24 10/28/24 10/28/24 Range/Units 06:25 06:55 06:55 WBC 7.2 (3.8-10.6) k/uL RBC 4.63 (3.80-5.40) m/uL Hgb 14.2 (11.4-16.0) gm/dL Hct 45.4 (34.0-46.0) % MCV 98.0 (80.0-100.0) fL MCH 30.7 (25.0-35.0) pg MCHC 31.3 (31.0-37.0) g/dL RDW 13.3 (11.5-15.5) % Plt Count 383 (150-450) k/uL MPV 8.9 Neutrophils % 64 % Lymphocytes % 27 % Monocytes % 6 % Eosinophils % 2 % Basophils % 0 % Neutrophils # 4.6 (1.3-7.7) k/uL Lymphocytes # 2.0 (1.0-4.8) k/uL Monocytes # 0.4 (0-1.0) k/uL Eosinophils # 0.1 (0-0.7) k/uL Basophils # 0.0 (0-0.2) k/uL Sodium 137 (137-145) mmol/L Potassium 4.7 (3.5-5.1) mmol/L Chloride 105 (98-107) mmol/L Carbon Dioxide 25 (22-30) mmol/L Anion Gap 7 mmol/L BUN 8 (7-17) mg/dL Creatinine 0.59 (0.52-1.04) mg/dL Est GFR (CKD-EPI)AfAm >90 (>60 ml/min/1.73 sqM) Est GFR (CKD-EPI)NonAf >90 (>60 ml/min/1.73 sqM) Glucose 95 (74-99) mg/dL Plasma Lactic Acid Johnathon (0.7-2.0) mmol/L Calcium 10.4 H (8.4-10.2) mg/dL Total Bilirubin 0.8 (0.2-1.3) mg/dL AST 29 (14-36) U/L ALT 18 (4-34) U/L Alkaline Phosphatase 69 (38-126) U/L Total Protein 7.2 (6.3-8.2) g/dL Albumin 4.2 (3.5-5.0) g/dL HCG, Qual Not Detected Urine Color Yellow Urine Appearance Cloudy H (Clear) Urine pH 7.0 (5.0-8.0) Ur Specific [place] 1.023 (1.001-1.035) Urine Protein Negative (Negative) Urine Glucose (UA) Negative (Negative) Urine Ketones Trace H (Negative) Urine Blood Negative (Negative) Urine Nitrite Negative (Negative) Urine Bilirubin Negative (Negative) Urine Urobilinogen 2.0 (<2.0) mg/dL Ur Leukocyte Esterase Small H (Negative) Urine RBC 2 (0-5) /hpf Urine WBC 14 H (0-5) /hpf Urine WBC Clumps Occasional H (None) /hpf Ur Squamous Epith Cells 1 (0-4) /hpf Calcium Oxalate Crystal Few H (None) /hpf Amorphous Sediment Few H (None) /hpf Urine Bacteria Rare H (None) /hpf Hyaline Casts 2 (0-2) /lpf Urine Mucus Rare H (None) /hpf // Range/Units 07:23 WBC (3.8-10.6) k/uL RBC (3.80-5.40) m/uL Hgb (11.4-16.0) gm/dL Hct (34.0-46.0) % MCV (80.0-100.0) fL MCH (25.0-35.0) pg MCHC (31.0-37.0) g/dL RDW (11.5-15.5) % Plt Count (150-450) k/uL MPV Neutrophils % % Lymphocytes % % Monocytes % % Eosinophils % % Basophils % % Neutrophils # (1.3-7.7) k/uL Lymphocytes # (1.0-4.8) k/uL Monocytes # (0-1.0) k/uL Eosinophils # (0-0.7) k/uL Basophils # (0-0.2) k/uL Sodium (137-145) mmol/L Potassium (3.5-5.1) mmol/L Chloride (98-107) mmol/L Carbon Dioxide (22-30) mmol/L Anion Gap mmol/L BUN (7-17) mg/dL Creatinine (0.52-1.04) mg/dL Est GFR (CKD-EPI)AfAm (>60 ml/min/1.73 sqM) Est GFR (CKD-EPI)NonAf (>60 ml/min/1.73 sqM) Glucose (74-99) mg/dL Plasma Lactic Acid Johnathon 1.0 (0.7-2.0) mmol/L Calcium (8.4-10.2) mg/dL Total Bilirubin (0.2-1.3) mg/dL AST (14-36) U/L ALT (4-34) U/L Alkaline Phosphatase (38-126) U/L Total Protein (6.3-8.2) g/dL Albumin (3.5-5.0) g/dL HCG, Qual Urine Color Urine Appearance (Clear) Urine pH (5.0-8.0) Ur Specific [place] (1.001-1.035) Urine Protein (Negative) Urine Glucose (UA) (Negative) Urine Ketones (Negative) Urine Blood (Negative) Urine Nitrite (Negative) Urine Bilirubin (Negative) Urine Urobilinogen (<2.0) mg/dL Ur Leukocyte Esterase (Negative) Urine RBC (0-5) /hpf Urine WBC (0-5) /hpf Urine WBC Clumps (None) /hpf Ur Squamous Epith Cells (0-4) /hpf Calcium Oxalate Crystal (None) /hpf Amorphous Sediment (None) /hpf Urine Bacteria (None) /hpf Hyaline Casts (0-2) /lpf Urine Mucus (None) /hpf Disposition Is patient prescribed a controlled substance at d/c from ED?: Yes When asked, does pt state using other controlled substances?: Yes If prescribed controlled substance>3 days was MAPS reviewed?: Prescribed <3 Days Time of Disposition: 11:42 <Vogley,Shaunna - Last Filed: 11/01/24 11:15> <Tristin Rutledge - Last Filed: 11/03/24 07:34> Clinical Impression: Abnormal CT scan, pelvis, Lymph nodes enlarged, Cervix abnormality, Uterus problem, Nicotine dependence Disposition: HOME SELF-CARE Additional Instructions: Return to the emergency department with any new, worsening, or concerning symptoms. Alternate with ibuprofen and Tylenol as needed for pain relief. Take the [place] when your pain is the most severe. Take the Zofran up to every 8 hours as needed for nausea and vomiting. Contact your primary care provider office first thing tomorrow morning. Let them know that you were seen in the e mergency department and had a CAT scan and ultrasound done that was highly suspicious for some sort of gynecological cancer and you need a stat referral to [facility]. Prescriptions: Ibuprofen [Motrin] 800 mg PO Q8H PRN #30 tab PRN Reason: Pain HYDROcodone/APAP 7.5-325MG [[place] 7.5-325] 1 tab PO Q4H PRN 3 Days #18 tab PRN Reason: Pain Ondansetron Odt [Zofran Odt] 4 mg PO Q8HR PRN #15 tab PRN Reason: Nausea And Vomiting Referrals: Josue Spain [Primary Care Provider] - 1-2 days
[2024-10-28 07:05] LABS: Amorphous Sediment,Urine Few /hpf; Appearance,Urine Cloudy (Clear); Bacteria,Urine Rare /hpf; Bilirubin,Urine Negative (Negative); Blood,Urine Negative (Negative); Calcium Oxalate Crystals,Urine Few /hpf; Color,Urine Yellow; Glucose,Urine (UA) Negative (Negative); Hyaline Casts,Urine 2 /lpf (0-2); Ketones,Urine Trace (Negative); Leukocyte Esterase,Urine Small (Negative); Mucus,Urine Rare /hpf; Nitrite,Urine Negative (Negative); Protein,Urine Negative (Negative); RBC,Urine 2 /hpf (0-5); Specific Gravity,Urine 1.023 (1.001-1.035); Squamous Epithelial Cell,Urine 1 /hpf (0-4); WBC,Urine 14 /hpf (0-5)
[2024-10-28 07:26] LABS: Basophils % (A) 0 %; Eosinophils # (A) 0.1 k/uL (0-0.7); Eosinophils % (A) 2 %; HCT 45.4 % (34.0-46.0); HGB 14.2 gm/dL (11.4-16.0); Lymphocytes % (A) 27 %; MCH 30.7 pg (25.0-35.0); MCHC 31.3 g/dL (31.0-37.0); Mean Platelet Volume 8.9; Monocytes # (A) 0.4 k/uL (0-1.0); Monocytes % (A) 6 %; Neutrophils # (A) 4.6 k/uL (1.3-7.7); Neutrophils % (A) 64 %; Platelet Count 383 k/uL (150-450); RBC 4.63 m/uL (3.80-5.40); RDW 13.3 % (11.5-15.5); WBC 7.2 k/uL (3.8-10.6)
[2024-10-28] MEDS: SODIUM CHLORIDE 0.9% 1,000 ML IV STA (07:28)
[2024-10-28] MEDS: HYDROmorphone 1 MG/ML 1 ML SYRINGE IVP STA ×3 (07:30→11:42)
[2024-10-28] MEDS: HYDROmorphone 1 MG/ML 1 ML SYRINGE IM STA (07:30)
[2024-10-28] MEDS: KETOROLAC 15 MG/ML 1 ML VIAL IM STA (07:30)
[2024-10-28] MEDS: KETOROLAC 15 MG/ML 1 ML VIAL IVP STA ×2 (07:30→10:47)
[2024-10-28 07:41] LABS: HCG,Qualitative Serum Not Detected
[2024-10-28 07:45] LABS: ALT 18 U/L (4-34); African American GFR (CKD) >90 (>60 ml/min/1.73 sqM); Albumin 4.2 g/dL (3.5-5.0); Anion Gap 7 mmol/L; Blood Urea Nitrogen 8 mg/dL (7-17); Calcium 10.4 mg/dL (8.4-10.2); Carbon Dioxide 25 mmol/L (22-30); Chloride 105 mmol/L (98-107); Glucose 95 mg/dL (74-99); Non-African American GFR(CKD) >90 (>60 ml/min/1.73 sqM); Sodium 137 mmol/L (137-145); Total Bilirubin 0.8 mg/dL (0.2-1.3); Total Protein 7.2 g/dL (6.3-8.2)
[2024-10-28 07:46] LABS: Potassium 4.7 mmol/L (3.5-5.1)
[2024-10-28 07:47] LABS: AST 29 U/L (14-36); Alkaline Phosphatase 69 U/L (38-126)
--- NOTE | 2024-10-28 08:17 | CT ---
EXAMINATION TYPE: CT abdomen pelvis w con CT DLP: 586.2 mGycm, Automated exposure control for dose reduction was used. DATE OF EXAM: 10/28/2024 7:54 AM COMPARISON: CT abdomen pelvis 10/01/2024, transvaginal ultrasound 10/01/2024 CLINICAL INDICATION:Female, 49 years old with history of Lower abdominal pain; lower back pain TECHNIQUE: Standard CT of the abdomen and pelvis following the administration of 100 cc of Isovue 3 00 IV contrast material. Coronal and sagittal reformats were performed. FINDINGS: LOWER CHEST: Unremarkable ABDOMEN LIVER: Focal fatty infiltration adjacent to the falciform ligament in segment IVb GALLBLADDER AND BILE DUCTS: Unremarkable. PANCREAS: Unremarkable. SPLEEN: Unremarkable. ADRENAL GLANDS: Unremarkable. KIDNEYS AND URETERS: No evidence of hydronephrosis or renal calculus. The kidneys enhance symmetrical ly. Contrast is demonstrated within both collecting systems and the proximal left ureter on the delay ed phase. PELVIS BLADDER: Underdistended, limiting evaluation. REPRODUCTIVE: Bilateral ovarian cystic lesions redemonstrated. The right measures up to 3.0 cm while the left measures up to 2.5 cm. Anteverted uterus with fluid within the endometrial canal and in mass identified along the left lateral uterine body/fundus with extension into the endometrium. This mass measures up to 2.8 cm. There is abnormal thickening of the lower uterine segment extending into the cervix. Fluid in gas identified within the cervical canal. There is close approximation of the rectum with the cervix. ABDOMEN & PELVIS STOMACH AND BOWEL: Stomach and duodenum are unremarkable. No focal bowel wall thickening. The appendi x is within normal limits. No evidence of bowel obstruction. PERITONEUM: No evidence of pneumoperitoneum. Trace free fluid in the pelvis. Presacral edema. VASCULATURE: Mild atherosclerotic calcifications are present throughout the abdominal aorta and its b ranches. No evidence of aortic aneurysm. MUSCULOSKELETAL: No acute osseous abnormalities. Similar symmetric sclerotic appearance of the pubic symphysis. Represent degenerative changes. No other suspicious osseous lesions. Grade 1 anterolisthes is of L5 on S1 with bilateral pars defects. LYMPH NODES: Increase in periaortic and pericaval adenopathy with examples including a left periaorti c lymph node measuring up to 2.9 cm, previously 2.4 cm (series 201, image 33). Multiple bilateral com mon iliac chain necrotic lymph nodes identified. SOFT TISSUE/ABDOMINAL WALL: Small fat filled umbilical hernia. IMPRESSION: 1. Abnormal wall thickening of the cervix and lower uterine segment with gas and fluid identified. A dditional endometrial fluid with eccentric endometrial mass identified. Findings are concerning for m alignancy until proven otherwise. Consider further evaluation with pelvic ultrasound. Direct visualiz ation is recommended. 2. Multiple enlarged periaortic/pericaval and bilateral common iliac chain lymph nodes with necrotic appearance highly concerning for metastasis. 3. Close approximation of the rectum with the cervix. Cannot exclude fistula. 4. Bilateral indeterminate ovarian cystic lesions. Recommendation for #1. [facility], , 10/28/2024 8:15 AM
--- NOTE | 2024-10-28 09:20 | US ---
EXAMINATION TYPE: US transvaginal DATE OF EXAM: 10/28/2024 COMPARISON: Transvaginal ultrasound 10/01/2024, CT abdomen and pelvis 10/28/2024, 10/01/2024 CLINICAL INDICATION: Female, 49 years old with history of Pelvic pain, abnormal CT; Follow up to CT s can pain. Exam limitations due to bowel gas. TECHNIQUE: transvaginal . FINDINGS: EXAM MEASUREMENTS: Uterus: 8.7 x 4.4 x 5.5 cm Endometrial Stripe: 2.2 cm Right Ovary: 3.3 x 2.3 x 2.4 cm Left Ovary: 3.3 x 2.2 x 2.6 cm 1. Uterus: Retroverted Heterogenous hypoechoic area seen left measuring 3.4 x 3.2 x Cervix is bulky measuring 4.6 x 2.9 x 3.9 cm. 2. Endometrium: Fluid filled dilated. 3. Right Ovary: Anechoic area 1.9 x 1.8 x 1.6 cm. 4. Left Ovary: heterogenous Spectral, color and waveform doppler imaging shows good arterial and venous flow within the ovaries ; there is no evidence for ovarian torsion. 5. Bilateral Adnexa: wnl 6. Posterior cul-de-sac: wnl Retroverted uterus with heterogenous hypoechoic area seen within the left uterine body measuring up t o 3.4 cm. May represent a fibroid. Fluid-filled dilated endometrium. The cervix is bulky in appearanc e. Heterogenous left ovary without evidence for torsion. Right ovary demonstrates no evidence for tor kim with a probable follicle demonstrated. No free fluid. IMPRESSION: 1. Cervical bulkiness which could represent neoplasm when comparing to recent CT. Other etiologies in clude an infectious/inflammatory process. Gynecological examination is recommended. 2. Dilated fluid filled endometrium which may related to #1 causing stenosis. 3. Uterine body 3.4 cm heterogenous mass which may represent a fibroid versus other etiologies. Recom mend further evaluation with MRI. [facility], , 10/28/2024 9:18 AM
[2024-10-28] MEDS: oxyCODONE-APAP 7.5-325MG 1 EACH TAB PO STA (10:47)
[2024-10-28 11:43] VITALS: BP 138/83; PULSE 68; RESP 22; TEMP 98.1
== END 2024-10-28 11:55 | disposition home or self-care (01) ==
LOC: EC 06:13
DX: N85.9 Noninflammatory disorder of uterus, unspecified (principal); R59.9 Enlarged lymph nodes, unspecified; R93.41 Abnormal radiologic findings on diagnostic imaging of renal pelvis, ureter, or bladder; F17.200 Nicotine dependence, unspecified, uncomplicated
CPT/HCPCS: 36415; 80053; 83605; 85025; 81001; 84703; 87086; 93975; 76830; 74177; 99406; 99285; 96374; 96375; 96376 ×3; 96361; J1171; J1885; Q9967

== ENCOUNTER 2024-11-01 16:07 | Inpatient (IN) | payer OTHER ==
--- NOTE | 2024-11-01 16:55 | ED ---
Abdominal Pain HPI - General Chief Complaint: Abdominal Pain Stated Complaint: Abd/back pain Time Seen by Provider: 11/01/24 16:32 Source: patient Mode of arrival: ambulatory Limitations: no limitations - History of Present Illness Initial Comments: 49-year-old female presenting with chief complaint of pelvic pain. Patient recently had a CT scan performed that showed evidence of malignancy with possible evidence of metastasis. She was instructed to follow-up closely with her PCP for urgent [place] un[facility] consultation. She has been taking [place] as needed for pain. She followed up with her PCP today but her pain was so great that her PCP recommended she come to the ER for admission. States that she is now having spotting as well. No known fever. She admits to constipation. No vomiting. No dysuria. - Related Data Home Medications Medication Instructions Recorded Confirmed Acetaminophen Tab [Tylenol Tab] 1,000 mg PO Q6HR PRN 10/01/24 10/01/24 Cholecalciferol (Vitamin D3) 50 mcg PO HS 10/01/24 10/01/24 [Vitamin D3 (50 Mcg = 2000 Iu)] oxyBUTYnin chloride [oxyBUTYnin 5 mg PO HS 10/01/24 10/01/24 chloride ER] Previous Rx's Medication Instructions Recorded HYDROcodone/APAP 7.5-325MG [[place] 1 tab PO Q4H PRN 3 Days #18 tab 10/28/24 7.5-325] Ibuprofen [Motrin] 800 mg PO Q8H PRN #30 tab 10/28/24 Ondansetron Odt [Zofran Odt] 4 mg PO Q8HR PRN #15 tab 10/28/24 Allergies Allergy/AdvReac Type Severity Reaction Status Date / Time No Known Allergies Allergy Verified 10/28/24 06:22 Review of Systems ROS Statement: Those systems with pertinent positive or pertinent negative responses have been documented in the HPI. ROS Other: All systems not noted in ROS Statement are negative. Past Medical History Past Medical History: No Reported History Additional Past Medical History / Comment(s): OB history: She has had 4 vaginal deliveries, one spontaneous and one elective . O+, abs neg, Rub Imm, RPR NR, Hep B neg. GBS neg. History of Any Multi-Drug Resistant Organisms: None Reported Past Surgical History: Tubal Ligation Past Anesthesia/Blood Transfusion Reactions: No Reported Reaction Past Psychological History: No Psychological Hx Reported Smoking Status: Current every day smoker Past Alcohol Use History: None Reported Past Drug Use History: Marijuana - Past Family History Mother Family Medical History: No Reported History General Exam Limitations: no limitations General appearance: alert, in no apparent distress Head exam: Present: atraumatic, normocephalic, normal inspection Eye exam: Present: normal appearance, EOMI Neck exam: Present: normal inspection. Absent: meningismus Respiratory exam: Absent: respiratory distress Cardiovascular Exam: Present: regular rate Neurological exam: Present: alert, oriented X3 Psychiatric exam: Present: normal affect, normal mood Skin exam: Present: warm, dry, normal color Course Vital Signs 11/01/24 16:13 Temperature 97.2 F L Pulse Rate 82 Respiratory 20 Rate Blood Pressure 127/85 O2 Sat by Pulse 99 Oximetry Medical Decision Making - Medical Decision Making Was pt. sent in by a medical professional or institution (, PA, [employer], urgent care, hospital, or custodial...) When possible be specific @ -PCP Did you speak to anyone other than the patient for history (EMS, parent, family, police, friend...)? What history was obtained from this source @ -[No] Did you review nursing and triage notes (agree or disagree)? Why? @ -[I reviewed and agree with nursing and triage notes] Were old charts reviewed (outside hosp., previous admission, EMS record, old EKG, old radiological studies, urgent care reports/EKG's, custodial records)? Report findings @ -Visit from 10/[address] and ultrasound obtained at this visit Differential Diagnosis (chest pain, altered mental status, abdominal pain women, abdominal pain men, vaginal bleeding, weakness, fever, dyspnea, syncope, he adache, dizziness, GI bleed, back pain, seizure, CVA, palpatations, mental health, musculoskeletal)? @ -MDM Differential Abdominal Pain Women: Appendicitis, Cholecystitis, diverticulosis, ischemic bowel, pancreatitis, hepatitis, UTI, gastroenteritis, AAA, incarcerated hernia, bowel obstruction, co nstipation, inflammatory bowel, hepatitis, peptic ulcer disease, splenic infarction, perforated viscus, vulvitis, ovarian torsion, PID, kidney stone, placenta abruption... This is not meant to be an all-inclusive list EKG interpreted by me (3pts min.). @ -[As above] X-rays interpreted by me (1pt min.). @ -[None done] CT interpreted by me (1pt min.). @ -[None done] U/S interpreted by me (1pt. min.). @ -[None done] What testing was considered but not performed or refused? (CT, X-rays, U/S, la bs)? Why? @ -[None] What meds were considered but not given or refused? Why? @ -[None] Did you discuss the management of the patient with other professionals (professionals i.e. , PA, [employer], lab, RT, psych nurse, dialysis social worker, chief projectionist, teacher, job placement officer, case resolution specialist)? Give summary @ -Spoke with [facility] provider on-call accepts admission Was smoking cessation discussed for >3mins.? @ -[No] Was critical care preformed (if so, how long)? @ -[No] Were there social determinants of health that impacted care today? How? (Homelessness, low income, unemployed, alcoholism, drug addiction, transp ortation, low edu. Level, literacy, decrease access to med. care, [facility], rehab)? @ -[No] Was there de-escalation of care discussed even if they declined (Discuss DNR or withdrawal of care, Hospice)? DNR status @ -[No] What co-morbidities impacted this encounter? (DM, HTN, Smoking, COPD, CAD, Cancer, CVA, ARF, Chemo, Hep., AIDS, mental health diagnosis, sleep apnea, morbid obesity)? @ -[None] Was patient admitted / discharged? Hospital course, mention meds given and route, prescriptions, significant lab abnormalities, going to OR and other pertinent info. @ -49-year-old female presenting with chief complaint of pelvic pain. Sent by her PCP for admission. She had CT and ultrasound performed on 10/28 highly suggestive of malignancy. She is having persistent pain. Lab work is obtained which shows no leukocytosis or anemia. Urine shows possible infection, this may also be contamination from patient's vaginal bleeding. She is treated with 1 g of Rocephin here in the ER. She will be admitted for further evaluation by gynecology and oncology. She is agreeable with this plan. I discussed this case with my attending Dr. Edmonds Undiagnosed new problem with uncertain prognosis? @ -[No] Drug Therapy requiring intensive monitoring for toxicity (Heparin, Nitro, Insulin, Cardizem)? @ -[No] Were any procedures done? @ -[No] Diagnosis/symptom? @ -Pelvic mass, abnormal CT Acute, or Chronic, or Acute on Chronic? @ -Acute Uncomplicated (without systemic symptoms) or Complicated (systemic symptoms)? @ -Complicated Side effects of treatment? @ -[No] Exacerbation, Progression, or Severe Exacerbation? @ -[No] Poses a threat to life or bodily function? How? (Chest pain, [place], NC, pneumonia, PE, COPD, DKA, ARF, appy, cholecystitis, CVA, Diverticulitis, Homicidal, Suicidal, threat to staff... and all critical care pts) @ -Potentially depending on the cause - Lab Data Result diagrams: 11/01/24 16:52 11/01/24 16:52 Lab Results 11/01/24 11/01/24 11/01/24 Range/Units 16:52 16:52 16:52 WBC 9.7 (3.8-10.6) k/uL RBC 4.69 (3.80-5.40) m/uL Hgb 14.3 (11.4-16.0) gm/dL Hct 45.4 (34.0-46.0) % MCV 96.8 (80.0-100.0) fL MCH 30.5 (25.0-35.0) pg MCHC 31.5 (31.0-37.0) g/dL RDW 13.3 (11.5-15.5) % Plt Count 394 (150-450) k/uL MPV 7.1 Neutrophils % 70 % Lymphocytes % 23 % Monocytes % 5 % Eosinophils % 1 % Basophils % 0 % Neutrophils # 6.7 (1.3-7.7) k/uL Lymphocytes # 2.2 (1.0-4.8) k/uL Monocytes # 0.5 (0-1.0) k/uL Eosinophils # 0.1 (0-0.7) k/uL Basophils # 0.0 (0-0.2) k/uL Sodium 137 (137-145) mmol/L Potassium 4.1 (3.5-5.1) mmol/L Chloride 104 (98-107) mmol/L Carbon Dioxide 20 L (22-30) mmol/L Anion Gap 13 mmol/L BUN 9 (7-17) mg/dL Creatinine 0.69 (0.52-1.04) mg/dL Est GFR (CKD-EPI)AfAm >90 (>60 ml/min/1.73 sqM) Est GFR (CKD-EPI)NonAf >90 (>60 ml/min/1.73 sqM) Glucose 81 (74-99) mg/dL Plasma Lactic Acid Johnathon (0.7-2.0) mmol/L Calcium 11.2 H (8.4-10.2) mg/dL Total Bilirubin 0.7 (0.2-1.3) mg/dL AST 26 (14-36) U/L ALT 14 (4-34) U/L Alkaline Phosphatase 70 (38-126) U/L Total Protein 7.7 (6.3-8.2) g/dL Albumin 4.5 (3.5-5.0) g/dL Urine Color Light Yellow Urine Appearance Cloudy H (Clear) Urine pH 5.5 (5.0-8.0) Ur Specific Anderson 1.013 (1.001-1.035) Urine Protein Trace H (Negative) Urine Glucose (UA) Negative (Negative) Urine Ketones 2+ H (Negative) Urine Blood Large H (Negative) Urine Nitrite Negative (Negative) Urine Bilirubin Negative (Negative) Urine Urobilinogen <2.0 (<2.0) mg/dL Ur Leukocyte Esterase Large H (Negative) Urine RBC 93 H (0-5) /hpf Urine WBC >182 H (0-5) /hpf Urine WBC Clumps Many H (None) /hpf Ur Squamous Epith Cells 1 (0-4) /hpf Urine Bacteria Few H (None) /hpf Urine Mucus Occasional H (None) /hpf 11/01/24 Range/Units 16:52 WBC (3.8-10.6) k/uL RBC (3.80-5.40) m/uL Hgb (11.4-16.0) gm/dL Hct (34.0-46.0) % MCV (80.0-100.0) fL MCH (25.0-35.0) pg MCHC (31.0-37.0) g/dL RDW (11.5-15.5) % Plt Count (150-450) k/uL MPV Neutrophils % % Lymphocytes % % Monocytes % % Eosinophils % % Basophils % % Neutrophils # (1.3-7.7) k/uL Lymphocytes # (1.0-4.8) k/uL Monocytes # (0-1.0) k/uL Eosinophils # (0-0.7) k/uL Basophils # (0-0.2) k/uL Sodium (137-145) mmol/L Potassium (3.5-5.1) mmol/L Chloride (98-107) mmol/L Carbon Dioxide (22-30) mmol/L Anion Gap mmol/L BUN (7-17) mg/dL Creatinine (0.52-1.04) mg/dL Est GFR (CKD-EPI)AfAm (>60 ml/min/1.73 sqM) Est GFR (CKD-EPI)NonAf (>60 ml/min/1.73 sqM) Glucose (74-99) mg/dL Plasma Lactic Acid Johnathon 1.4 (0.7-2.0) mmol/L Calcium (8.4-10.2) mg/dL Total Bilirubin (0.2-1.3) mg/dL AST (14-36) U/L ALT (4-34) U/L Alkaline Phosphatase (38-126) U/L Total Protein (6.3-8.2) g/dL Albumin (3.5-5.0) g/dL Urine Color Urine Appearance (Clear) Urine pH (5.0-8.0) Ur Specific Anderson (1.001-1.035) Urine Protein (Negative) Urine Glucose (UA) (Negative) Urine Ketones (Negative) Urine Blood (Negative) Urine Nitrite (Negative) Urine Bilirubin (Negative) Urine Urobilinogen (<2.0) mg/dL Ur Leukocyte Esterase (Negative) Urine RBC (0-5) /hpf Urine WBC (0-5) /hpf Urine WBC Clumps (None) /hpf Ur Squamous Epith Cells (0-4) /hpf Urine Bacteria (None) /hpf Urine Mucus (None) /hpf Disposition Clinical Impression: Pelvic mass, Abnormal CT scan, pelvis Disposition: ADMITTED IP TO THIS [facility] Condition: Serious Referrals: Josue Spain [Primary Care Provider] - 1-2 days Time of Disposition: 17:51
[2024-11-01 17:02] LABS: Basophils % (A) 0 %; Eosinophils # (A) 0.1 k/uL (0-0.7); Eosinophils % (A) 1 %; HCT 45.4 % (34.0-46.0); HGB 14.3 gm/dL (11.4-16.0); Lymphocytes # (A) 2.2 k/uL (1.0-4.8); Lymphocytes % (A) 23 %; MCH 30.5 pg (25.0-35.0); MCHC 31.5 g/dL (31.0-37.0); MCV 96.8 fL (80.0-100.0); Mean Platelet Volume 7.1; Monocytes # (A) 0.5 k/uL (0-1.0); Monocytes % (A) 5 %; Neutrophils # (A) 6.7 k/uL (1.3-7.7); Neutrophils % (A) 70 %; Platelet Count 394 k/uL (150-450); RBC 4.69 m/uL (3.80-5.40); RDW 13.3 % (11.5-15.5); WBC 9.7 k/uL (3.8-10.6)
[2024-11-01] MEDS: HYDROmorphone 1 MG/ML 1 ML SYRINGE IVP PRN (17:02)
[2024-11-01] MEDS: SODIUM CHLORIDE 0.9% 1,000 ML IV ONE (17:03)
[2024-11-01 17:08] LABS: Appearance,Urine Cloudy (Clear); Bacteria,Urine Few /hpf; Bilirubin,Urine Negative (Negative); Blood,Urine Large (Negative); Color,Urine Light Yellow; Glucose,Urine (UA) Negative (Negative); Ketones,Urine 2+ (Negative); Leukocyte Esterase,Urine Large (Negative); Mucus,Urine Occasional /hpf; Nitrite,Urine Negative (Negative); PH, Urine 5.5 (5.0-8.0); Protein,Urine Trace (Negative); RBC,Urine 93 /hpf (0-5); Specific Gravity,Urine 1.013 (1.001-1.035); Squamous Epithelial Cell,Urine 1 /hpf (0-4); Urobilinogen,Urine <2.0 mg/dL (<2.0); WBC,Urine >182 /hpf (0-5)
[2024-11-01 17:27] LABS: ALT 14 U/L (4-34); AST 26 U/L (14-36); African American GFR (CKD) >90 (>60 ml/min/1.73 sqM); Albumin 4.5 g/dL (3.5-5.0); Alkaline Phosphatase 70 U/L (38-126); Anion Gap 13 mmol/L; Blood Urea Nitrogen 9 mg/dL (7-17); Calcium 11.2 mg/dL (8.4-10.2); Carbon Dioxide 20 mmol/L (22-30); Chloride 104 mmol/L (98-107); Glucose 81 mg/dL (74-99); Non-African American GFR(CKD) >90 (>60 ml/min/1.73 sqM); Potassium 4.1 mmol/L (3.5-5.1); Sodium 137 mmol/L (137-145); Total Bilirubin 0.7 mg/dL (0.2-1.3); Total Protein 7.7 g/dL (6.3-8.2)
[2024-11-01] MEDS ORDERED: NALOXONE 0.4 MG/ML 1 ML VIAL IV PRN (18:03)
[2024-11-01] MEDS: cefTRIAXone IN SWFI 1,000 MG/10 ML SYRINGE IVP STA (18:05)
[2024-11-01] MEDS: SODIUM CHLORIDE 0.9% 1,000 ML IV SCH (18:32)
[2024-11-01] MEDS: KETOROLAC 15 MG/ML 1 ML VIAL IVP PRN (23:02)
[2024-11-02] MEDS ORDERED: SENNOSIDES 8.6 MG TAB PO PRN (00:55)
[2024-11-02] MEDS ORDERED: ONDANSETRON 4 MG/2 ML VIAL IVP PRN (00:58)
[2024-11-02] MEDS: HYDROmorphone 1 MG/ML 1 ML SYRINGE IVP PRN (14:09)
[2024-11-02] MEDS ORDERED: ACETAMINOPHEN TAB 325 MG TAB PO PRN (14:42)
[2024-11-02 15:00] VITALS: BMI 24.3
--- NOTE | 2024-11-02 15:00 | P.HPIM ---
History of Present Illness H&P Date: 11/02/24 This is a 49 female medical history of smoking and hypertension patient comes into the hospital secondary to severe 8 to 9/10 abdominal pain in the lower abdomen. Patient states that the pain is also radiating to her hips and lower back. Patient states that she has not had a normal period since early summer and has been having intermittent episodes of bright red and brown spotting since. She states that she will bleed for a day spotting fill a pad and the padding will stop. She felt like she was going through menopause and did not think anything of this. Patioh has been having urinary incontinence over the last few weeks, and also states that she has not been able to have a normal bowel movement has been fluctuating between diarrhea and constipation. In the last few weeks she started to have this significant pain she followed up with her family doctor and had a abdominal pelvis CT completed which reveals abnormal wall thickening of the cervix and lower uterine segment with gas and fluid identified there is additional endometrial fluid eccentric endometrial mass identified findings are concerning for malignancy until proven otherwise direct visualization is recommended consider further evaluation with pelvic ultrasound. There are mild couple enlarged periaortic and pericaval and bilateral common iliac chain lymph nodes with necrotic appearance highly concerning for metastas is. Close approximation of the rectum with the cervix cannot exclude fistula. Bilateral indeterminant ovarian cystic lesions correlate for #1. Transvaginal ultrasound reveals a cervical bulkiness which could represent neoplasm compared to recent CT. Other etiologies include infectious/inflammatory and a gynecological examination is recommended. A dilated fluid-filled endometrium which may related to #1 causing stenosis. Uterine body 3.4 cm heterogeneous mass which may resent a fibroid versus other etiologies. Recommend further evaluation with MRI. Patient was admitted to the hospital for pain management with a consult placed to oncology and gynecology and this was explained to the patient that we are we are still waiting evaluation from gynecology. If possible patient would prefer to be discharged if her pain is managed in follow- up on an outpatient basis but we again need to wait for gynecology consultation. Patients urinalysis was significantly abnormal with cloudy appearance, trace protein, 2+ketones, large blood, large leukocyte esterase, 93 RBC, >182 WBC. Patient was started empirically on IV ceftriaxone and urine culture has been taken. Pain management on board. REVIEW OF SYSTEMS: CONSTITUTIONAL: No fever, no malaise, no fatigue. HEENT: No recent visual problems or hearing problems. Denied any sore throat. CARDIOVASCULAR: No chest pain, orthopnea, PND, no palpitations, no syncope. PULMONARY: No shortness of breath, no cough, no hemoptysis. GASTROINTESTINAL: No diarrhea, no nausea, no vomiting. Reports lower abdominal pain. NEUROLOGICAL: No headaches, no weakness, no numbness. HEMATOLOGICAL: Denies any bleeding or petechiae. GENITOURINARY: Denies any burning micturition, frequency, or urgency. Reports vaginal spotting. MUSCULOSKELETAL/RHEUMATOLOGICAL: Denies any joint pain, swelling, or any muscle pain. ENDOCRINE: Denies any polyuria or polydipsia. The rest of the 14-point review of systems is negative. PHYSICAL EXAMINATION: GENERAL: The patient is alert and oriented x3, not in any acute distress. Well developed, well nourished. HEENT: Pupils are round and equally reacting to light. EOMI. No scleral icterus. No conjunctival pallor. Normocephalic, atraumatic. No pharyngeal erythema. No thyromegaly. CARDIOVASCULAR: S1 and S2 present. No murmurs, rubs, or gallops. PULMONARY: Chest is clear to auscultation, no wheezing or crackles. ABDOMEN: Soft, nontender, nondistended, normoactive bowel sounds. No palpable organomegaly. MUSCULOSKELETAL: No joint swelling or deformity. EXTREMITIES: No cyanosis, clubbing, or pedal edema. NEUROLOGICAL: Gross neurological examination did not reveal any focal deficits. SKIN: No rashes. 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 Repeat BMP in the AM The impression and plan of care has been dictated by Danica Lowry Nurse Practitioner as directed. Dr. Radha MD I have performed a history and physical examination and medical decision making of this patient, discussed the same with the dictator, and agree with the dictators assessment and plan as written, documented as a scribe. Based on total visit time, I have performed more than 50% of this visit. Past Medical History Past Medical History: No Reported History Additional Past Medical History / Comment(s): OB history: She has had 5 vaginal deliveries, one spontaneous and one elective . O+, abs neg, Rub Imm, RPR NR, Hep B neg. GBS neg. History of Any Multi-Drug Resistant Organisms: None Reported Past Surgical History: Tubal Ligation Past Anesthesia/Blood Transfusion Reactions: No Reported Reaction Past Psychological History: No Psychological Hx Reported Smoking Status: Current every day smoker Past Alcohol Use History: None Reported Past Drug Use History: None Reported, Marijuana - Past Family History Mother Family Medical History: Dementia, Myocardial Infarction ([place]) Medications and Allergies Home Medications Medication Instructions Recorded Confirmed Type Acetaminophen Tab [Tylenol Tab] 1,000 mg PO Q6HR PRN 10/01/24 11/01/24 History Cholecalciferol (Vitamin D3) 50 mcg PO HS 10/01/24 11/01/24 History [Vitamin D3 (50 Mcg = 2000 Iu)] oxyBUTYnin chloride [oxyBUTYnin 5 mg PO HS 10/01/24 11/01/24 History chloride ER] HYDROcodone/APAP 7.5-325MG [[place] 1 tab PO Q4H PRN 3 Days #18 tab 10/28/24 11/01/24 Rx 7.5-325] Ibuprofen [Motrin] 800 mg PO Q8H PRN #30 tab 10/28/24 11/01/24 Rx Ondansetron Odt [Zofran Odt] 4 mg PO Q8HR PRN #15 tab 10/28/24 11/01/24 Rx Allergies Allergy/AdvReac Type Severity Reaction Status Date / Time No Known Allergies Allergy Verified 11/01/24 19:28 Physical Exam Vitals: Vital Signs Temp Pulse Pulse Resp BP BP Pulse Ox 11/02/24 12:20 98.2 F 58 L 16 143/83 100 11/02/24 08:00 98.6 F 76 16 117/69 97 11/02/24 02:03 97.5 F L 60 18 126/77 99 11/01/24 21:09 98.0 F 63 18 130/81 99 11/01/24 20:48 98.1 F 60 16 131/85 99 11/01/24 16:13 97.2 F L 82 20 127/85 99 Intake and Output 11/01/24 11/02/24 11/02/24 22:59 06:59 14:59 Intake Total 540 1560 Balance 540 1560 Intake: Oral 540 1560 Other: # Voids 1 5 # Bowel Movements 1 Weight 58.513 kg 58.513 kg Results CBC & Chem 7: 11/01/24 16:52 11/01/24 16:52 Labs: Abnormal Lab Results - Last 24 Hours (Table) 11/01/24 11/01/24 Range/Units 16:52 16:52 Carbon Dioxide 20 L (22-30) mmol/L Calcium 11.2 H (8.4-10.2) mg/dL Urine Appearance Cloudy H (Clear) Urine Protein Trace H (Negative) Urine Ketones 2+ H (Negative) Urine Blood Large H (Negative) Ur Leukocyte Esterase Large H (Negative) Urine RBC 93 H (0-5) /hpf Urine WBC >182 H (0-5) /hpf Urine WBC Clumps Many H (None) /hpf Urine Bacteria Few H (None) /hpf Urine Mucus Occasional H (None) /hpf Thrombosis Risk Factor Assmnt - Choose All That Apply Any of the Below Risk Factors Present?: Yes Each Factor Represents 1 point: Age 41-60 years Other Risk Factors: Yes Each Risk Factor Represents 2 Points: Malignancy Other congenital or acquired thrombophilia - If yes, enter type in comment: No Thrombosis Risk Factor Assessment Total Risk Factor Score: 3 Thrombosis Risk Factor Assessment Level: Moderate Risk Assessment and Plan Time with Patient: Greater than 30
[2024-11-02] MEDS ORDERED: RX INFO: IV CONTRAST WAS GIVEN 1 EACH MISC MISCELLANE PRN (15:33)
[2024-11-02] MEDS: polyethylene glycoL 3350 17 GM POWD.PACK PO SCH (19:50)
--- NOTE | 2024-11-02 20:24 | P.CONS ---
History of Present Illness - Reason for Consult Consult date: 11/02/24 pelvic mass Requesting physician: Hunter Roberts - Chief Complaint pelvic pain - History of Present Illness Patient is a 49 female with a significant medical history of smoking and hypertension. Consult placed for pelvic mass. Patient presented to the hospitl for pelvic pain and lower back pain. Patient states that she has not had a normal period since early summer and has been having intermittent episodes of bright red and brown spotting since with hot flashes, contributing symptoms to early menopause. Patient had previously presented to the emergency room on 10/28/2024 for pelvic pain and underwent CT abdomen pelvis with contrast showing abnormal wall thicken ing of the cervix and lower uterine segment with gas and fluid identified. Additional endometrial fluid with eccentric endometrial mass identified measuring up to 2.8 cm. Multiple enlarged periaortic/pericaval and bilateral common iliac chain lymph nodes with necrotic appearance. Bilateral indete rminant ovarian cystic lesions. Transvaginal ultrasound showing cervical bulkiness which could represent neoplasm. Dilated fluid-filled endometrium. Uterine body 3.4 cm heterogeneous mass which may represent a fibroid versus other etiologies. Patient was subsequently discharged and recommended to follow-up with her PCP but upon follow-up patient was referred back to emergency room due to uncontrolled pelvic pain. Patient reports that she was recently treated with UTI with Keflex but did not have improvement in symptoms. UA suspicious for UTI, Rocephin has been started. Urine culture pending. NETEZZA ARCHITECT has been consulted Review of Systems 10 point ROS is negative except as stated in the HPI Past Medical History Past Medical History: No Reported History Additional Past Medical History / Comment(s): OB history: She has had 5 vaginal deliveries, one spontaneous and one elective . O+, abs neg, Rub Imm, RPR NR, Hep B neg. GBS neg. History of Any Multi-Drug Resistant Organisms: None Reported Past Surgical History: Tubal Ligation Past Anesthesia/Blood Transfusion Reactions: No Reported Reaction Past Psychological History: No Psychological Hx Reported Smoking Status: Current every day smoker Past Alcohol Use History: None Reported Past Drug Use History: None Reported, Marijuana - Past Family History Mother Family Medical History: Dementia, Myocardial Infarction ([place]) Medications and Allergies Home Medications Medication Instructions Recorded Confirmed Type Acetaminophen Tab [Tylenol Tab] 1,000 mg PO Q6HR PRN 10/01/24 11/01/24 History Cholecalciferol (Vitamin D3) 50 mcg PO HS 10/01/24 11/01/24 History [Vitamin D3 (50 Mcg = 2000 Iu)] oxyBUTYnin chloride [oxyBUTYnin 5 mg PO HS 10/01/24 11/01/24 History chloride ER] HYDROcodone/APAP 7.5-325MG [[place] 1 tab PO Q4H PRN 3 Days #18 tab 10/28/24 11/01/24 Rx 7.5-325] Ibuprofen [Motrin] 800 mg PO Q8H PRN #30 tab 10/28/24 11/01/24 Rx Ondansetron Odt [Zofran Odt] 4 mg PO Q8HR PRN #15 tab 10/28/24 11/01/24 Rx Allergies Allergy/AdvReac Type Severity Reaction Status Date / Time No Known Allergies Allergy Verified 11/01/24 19:28 Physical Exam Vitals: Vital Signs Temp Pulse Pulse Resp BP BP Pulse Ox 11/02/24 12:20 98.2 F 58 L 16 143/83 100 11/02/24 08:00 98.6 F 76 16 117/69 97 11/02/24 02:03 97.5 F L 60 18 126/77 99 11/01/24 21:09 98.0 F 63 18 130/81 99 11/01/24 20:48 98.1 F 60 16 131/85 99 11/01/24 16:13 97.2 F L 82 20 127/85 99 Intake and Output 11/02/24 11/02/24 11/02/24 06:59 14:59 22:59 Intake Total 540 1800 Balance 540 1800 Intake: Oral 540 1800 Other: # Voids 1 5 # Bowel Movements 1 Weight 58.513 kg 58.513 kg - Constitutional General appearance: average body habitus, no acute distress - EENT Eyes: anicteric sclerae, EOMI ENT: hearing grossly normal - Neck Neck: no lymphadenopathy - Respiratory Respiratory: negative: CTA - Cardiovascular Rhythm: regular - Gastrointestinal lower abd/pelvic tenderness General gastrointestinal: tenderness - Integumentary Integumentary: no cyanotic, no jaundiced - Neurologic Neurologic: CNII-XII intact - Musculoskeletal right mid to lower paraspinal tenderness Musculoskeletal: strength equal bilaterally - Psychiatric Psychiatric: A&O x's 3 Results CBC & Chem 7: 11/01/24 16:52 11/01/24 16:52 Labs: Abnormal Lab Results - Last 24 Hours (Table) 11/01/24 11/01/24 Range/Units 16:52 16:52 Carbon Dioxide 20 L (22-30) mmol/L Calcium 11.2 H (8.4-10.2) mg/dL Urine Appearance Cloudy H (Clear) Urine Protein Trace H (Negative) Urine Ketones 2+ H (Negative) Urine Blood Large H (Negative) Ur Leukocyte Esterase Large H (Negative) Urine RBC 93 H (0-5) /hpf Urine WBC >182 H (0-5) /hpf Urine WBC Clumps Many H (None) /hpf Urine Bacteria Few H (None) /hpf Urine Mucus Occasional H (None) /hpf Comments: transvaginal US reviewed CT scan - abdomen: report reviewed CT scan - pelvis: report reviewed Assessment and Plan (1) Pelvic pain Current Visit: Yes Status: Acute Priority: High Code(s): R10.2 - PELVIC AND PERINEAL PAIN SNOMED Code(s): 76598145 (2) Abnormal CT scan, pelvis Current Visit: Yes Status: Acute Priority: High Code(s): R93.5 - ABN FINDINGS ON DX IMAGING OF ABD REGIONS, INC RETROPERITON SNOMED Code(s): 19753671376723098 (3) Pelvic mass Current Visit: Yes Status: Acute Priority: High Code(s): R19.00 - INTRA- ABD AND PELVIC SWELLING, MASS AND LUMP, UNSP SITE SNOMED Code(s): 20809731 Plan: Pelvic mass, pelvic pain, back pain: Presented to the hospital for pelvic pain and lower back pain, was recently seen in the ER for the same. Patient states that she has not had a normal period since early summer and has been having intermittent episodes of bright red and brown spotting since with hot flashes, contributing symptoms to early menopause. Pt f/u with her PCP for evaluation and referral to [facility] but was referred to the ER for uncontrolled pelvic pain -On 10/28/2024 CT abdomen pelvis with contrast showing abnormal wall thickening of the cervix and lower uterine segment with gas and fluid identified. Additional endometrial fluid with eccentric endometrial mass identified measuring up to 2.8 cm. Multiple enlarged periaortic/pericaval and bilateral common iliac chain lymph nodes with necrotic appearance. Bilateral indeterminant ovarian cystic lesions. Transvaginal ultrasound showing cervical bulkiness which could represent neoplasm. Dilated fluid-filled endometrium. Uterine body 3.4 cm heterogeneous mass -Patient was recently treated UTI with Keflex but did not have improvement in symptoms. UA suspicious for UTI, Rocephin has been started. Urine culture pending. NETEZZA ARCHITECT has been consulted -Will obtain CT chest for staging and will place referral to [facility] to further evaluate pelvic mass. -Due to reported mid/low back pain, will also obtain CT lumbar spine to further evaluate -Clinic f/u will be scheduled upon discharge and f/u with [facility] Discussed findings and concerns for malignancy with pt. Pt was agreeable to proceed with further workup. All questions and concerns were answered. attests: I have seen and examined pt, performed H&P, developed impression and plan of care. Discussed with dictator. Agree with documentation, dictated as a scribe.
--- NOTE | 2024-11-03 10:44 | CT ---
CT chest with contrast. HISTORY: Uterine mass, staging COMPARISON: None TECHNIQUE: Multiple axial images were obtained through the thorax following the uneventful administra tion of nonionic IV contrast material. FINDINGS: There are mild emphysematous changes with an upper lobe predominance. There are multiple innumerable pulmonary nodules the largest of which are in the left lower lobe at a pproximately 7 mm in size. There is no airspace consolidation. There is no pleural effusion, pleural thickening or pneumothorax. The great vessels the chest are normal. There is no mediastinal, hilar or axillary adenopathy. Limited scanning of the upper abdomen reveals no gross abnormality.. No focal osseous lesions are seen. IMPRESSION: IMPRESSION: Multiple innumerable pulmonary nodules, likely metastatic disease to the lung. [facility], Workstation: [email or web address] 11/03/2024 10:41 AM
--- NOTE | 2024-11-03 10:48 | CT ---
EXAMINATION TYPE: CT lumbar spine w con DATE OF EXAM: 11/03/2024 COMPARISON: None CLINICAL INDICATION: Female, 49 years old with history of low back pain, newly diagnosed uterine mass ; PHH, Uterine mass, back pain TECHNIQUE:CT scan of the lumbar is performed with IV Contrast, patient injected with 100 mL of Isovue 300. CT DLP: 665.[address] CTDI: mGy Automated exposure control for dose reduction was used. FINDINGS: Enhanced CT of the lumbar spine was performed. Bone and soft tissue window settings are submitted as well as coronal and sagittal reconstructions. The lumbar vertebral segments are normal in height and there is no fracture. There are no focal intra osseous abnormalities. There is a grade one anterolisthesis of L5 on S1 secondary to bilateral spondylolysis of L5. There is mild degenerative disc disease at the L5-S1 level where there is mild disc space narrowing and spond ylosis. Visualized sacrum and SI joints normal. Uterus is heterogeneous with fluid density centrally likely within the uterine cavity or within a nec rotic mass and marked wall thickening consistent with the history of uterine mass. There is inguinal and retroperitoneal adenopathy. IMPRESSION: 1. Grade 1 anterolisthesis of L5 on S1 secondary to a bilateral spondylolysis of L5 due to mild degen erative disease at the L5-S1. 3. No lumbar spine fracture or focal intraosseous abnormality. 4. Uterine mass and adenopathy. [facility], , 11/03/2024 10:45 AM
--- NOTE | 2024-11-03 10:54 | P.OBCN ---
History of Present Illness Consult date: 11/03/24 Reason for consult: pelvic mass Chief complaint: pelvic pain History of present illness: 49-year-old G7, P5 been complaining of continuous urinary incontinence since March 2024. She was told by urologist she needed a stent but did not not have any workup and insurance would not cover it because she did not have a workup. Patient states she has had a Pap smear within the last 2 years and it was normal. She presented to the hospital and to her primary care physician's office with low back and pelvic pain. CT scan along with transvaginal ultrasound showed a bulky cervix with a 3.4 cm posterior mass possibly a f ibroid. She does have multiple pelvic periaortic lymph nodes that are enlarged. The patient has not had a period since last year but does have some spotting irregularly. Review of Systems All systems: negative Constitutional: Denies chills, Denies fever Eyes: denies blurred vision, denies pain Ears, nose, mouth and throat: Denies headache, Denies sore throat Cardiovascular: Denies chest pain, Denies shortness of breath Respiratory: Denies cough Gastrointestinal: Reports abdominal pain, Reports bloating, Denies diarrhea, Denies nausea, Denies vomiting Genitourinary: Reports as per HPI, Denies dysuria, Denies hematuria Musculoskeletal: Denies myalgias Integumentary: Denies pruritus, Denies rash Neurological: Denies numbness, Denies weakness Psychiatric: Denies anxiety, Denies depression Endocrine: Denies fatigue, Denies weight change Past Medical History Past Medical History: No Reported History Additional Past Medical History / Comment(s): OB history: She has had 5 vaginal deliveries, one spontaneous and one elective . History of Any Multi-Drug Resistant Organisms: None Reported Past Surgical History: Tubal Ligation Past Anesthesia/Blood Transfusion Reactions: No Reported Reaction Past Psychological History: No Psychological Hx Reported Smoking Status: Current every day smoker Past Alcohol Use History: None Reported Past Drug Use History: None Reported, Marijuana - Past Family History Mother Family Medical History: Dementia, Myocardial Infarction ([place]) Medications and Allergies Home Medications Medication Instructions Recorded Confirmed Type Acetaminophen Tab [Tylenol Tab] 1,000 mg PO Q6HR PRN 10/01/24 11/01/24 History Cholecalciferol (Vitamin D3) 50 mcg PO HS 10/01/24 11/01/24 History [Vitamin D3 (50 Mcg = 2000 Iu)] oxyBUTYnin chloride [oxyBUTYnin 5 mg PO HS 10/01/24 11/01/24 History chloride ER] HYDROcodone/APAP 7.5-325MG [[place] 1 tab PO Q4H PRN 3 Days #18 tab 10/28/24 11/01/24 Rx 7.5-325] Ibuprofen [Motrin] 800 mg PO Q8H PRN #30 tab 10/28/24 11/01/24 Rx Ondansetron Odt [Zofran Odt] 4 mg PO Q8HR PRN #15 tab 10/28/24 11/01/24 Rx Allergies Allergy/AdvReac Type Severity Reaction Status Date / Time No Known Allergies Allergy Verified 11/01/24 19:28 Exam Osteopathic Statement: *. No significant issues noted on an osteopathic structural exam other than those noted in the History and Physical/Consult. Vital Signs Temp Pulse Resp BP Pulse Ox 11/03/24 07:53 97.9 F 58 L 20 134/87 98 11/03/24 01:12 97.9 F 95 18 106/70 91 L 11/02/24 17:13 98.3 F 116 H 16 123/74 93 L 11/02/24 12:20 98.2 F 58 L 16 143/83 100 Intake and Output 11/02/24 11/03/24 11/03/24 22:59 06:59 14:59 Intake Total 480 Balance 480 Intake: Oral 480 Other: Voiding Method Diaper # Voids 2 I called down to lab and histopathology to see if we could do a Pap smear in the hospital. operating room surgical technician did not know where to find a ThinPrep bottle or the proper instrumentation to do this. Physical exam: Bimanual reveals very enlarged firm cervix with nodularity. R etroverted uterus normal size and decreased mobility. No Adnexal masses Results Result Diagrams: 11/01/24 16:52 11/01/24 16:52 Microbiology - Last 24 Hours (Table) 11/01/24 16:52 Urine Culture - Final Urine,Voided Assessment and Plan (1) Abnormal CT scan, pelvis Current Visit: Yes Status: Acute Priority: High Code(s): R93.5 - ABN FINDINGS ON DX IMAGING OF ABD REGIONS, INC RETROPERITON SNOMED Code(s): 96868092276978965 (2) Cervix abnormality Current Visit: No Status: Acute Code(s): N88.9 - NONINFLAMMATORY DISORDER OF CERVIX UTERI, UNSPECIFIED SNOMED Code(s): 12431074 (3) Lymph nodes enlarged Current Visit: No Status: Acute Code(s): R59.9 - ENLARGED LYMPH NODES, UNSPECIFIED SNOMED Code(s): 35980568 Plan: 1. With the enlarged lymph nodes and bulky cervix, along with the incontinence, I am Suspicious for cervical cancer in this patient. I cannot perform a Pap smear or do a biopsy at bedside in the hospital, I would recommend she patient. However, patient is in extreme pain requiring IV Dilaudid. In this case, I would recommend she be transferred to a tertiary care facility that has a [employer] oncologist who can properly diagnose the patient while keeping her comfortable.
[2024-11-03] MEDS ORDERED: ALPRAZolam 0.5 MG TAB PO PRN (13:19)
--- NOTE | 2024-11-03 13:19 | P.PN ---
Subjective This is a 49 female medical history of smoking and hypertension patient comes into the hospital secondary to severe 8 to 9/10 abdominal pain in the lower abdomen. Patient states that the pain is also radiating to her hips and lower back. Patient states that she has not had a normal period since early summer and has been having intermittent episodes of bright red and brown spotting since. She states that she will bleed for a day spotting fill a pad and the padding will stop. She felt like she was going through menopause and did not think anything of this. Patioh has been having urinary incontinence over the last few weeks, and also states that she has not been able to have a normal bowel movement has been fluctuating between diarrhea and constipation. In the last few weeks she started to have this significant pain she followed up with her family doctor and had a abdominal pelvis CT completed which reveals abnormal wall thickening of the cervix and lower uterine segment with gas and fluid identified there is additional endometrial fluid eccentric endometrial mass identified findings are concerning for malignancy until proven otherwise direct visualization is recommended consider further evaluation with pelvic ultrasound. There are mild couple enlarged periaortic and pericaval and bilateral common iliac chain lymph nodes with necrotic appearance highly concerning for metastasis. Close approximation of the rectum with the cervix cannot exclude fistula. Bilateral indeterminant ovarian cystic lesions correlate for #1. T ransvaginal ultrasound reveals a cervical bulkiness which could represent neoplasm compared to recent CT. Other etiologies include infectious/inflammatory and a gynecological examination is recommended. A dilated fluid-filled endometrium which may related to #1 causing stenosis. Uterine body 3.4 cm heterogeneous mass which may resent a fibroid versus other etiologies. Recommend further evaluation with MRI. Patient was admitted to the hospital for pain management with a consult placed to oncology and gynecology and this was explained to the patient that we are we are still waiting evaluati on from gynecology. If possible patient would prefer to be discharged if her pain is managed in follow-up on an outpatient basis but we again need to wait for gynecology consultation. Patients urinalysis was significantly abnormal with cloudy appearance, trace protein, 2+ketones, large blood, large leukocyte esterase, 93 RBC, >182 WBC. Patient was started empirically on IV ceftriaxone and urine culture has been taken. Pain management on board. 11/03 Patient presents with cervical mass, suspicion of cancer is high. Also she has CT of the chest suspicious for metastatic disease Patient was informed of the possibility of the cervical cancer today, patient has been seen by gynecology team. Patient currently emotional and crying, support is provided for the patient, she feels fine and does not think she needs medication for now. Daughter at bedside, other family members also were at bedside for support. No chest pain or dyspnea or other respiratory symptoms Patient is kept on ceftriaxone for UTI although urine culture was negative but she still have suprapubic pain radiating to the right hip area. Will continue with antibiotics for total of 5 days Review of systems CONSTITUTIONAL: No fever, no malaise, no fatigue. HEENT: No recent visual problems or hearing problems. Denied any sore throat. CARDIOVASCULAR: No orthopnea, PND, no palpitations, no syncope. PULMONARY: No shortness of breath, no cough, no hemoptysis. GASTROINTESTINAL: No diarrhea, no nausea, no vomiting, no abdominal pain. Normoactive bowel sounds. NEUROLOGICAL: No headaches, no weakness, no numbness. Active Medications Generic Name Dose Route Start Last Admin Trade Name Freq PRN Reason Stop Dose Admin Acetaminophen 650 mg 11/02/24 14:42 Acetaminophen Tab 325 Mg Tab PO Q6HR PRN Fever and/ or Pain Hydromorphone HCl 1 mg 11/02/24 12:56 11/03/24 10:06 Hydromorphone 1 Mg/Ml 1 Ml Syringe IVP 1 mg Q3HR PRN Administration Pain Sodium Chloride 1,000 mls @ 75 mls/hr 11/01/24 18:15 11/03/24 11:55 Saline 0.9% IV Not Given .[id number] KAMINI Ceftriaxone Sodium 1 gm/ 50 mls @ 100 mls/hr 11/02/24 18:00 11/02/24 17:05 Sodium Chloride IVPB 11/07/24 17:59 100 mls/hr Q24H KAMINI Administration Protocol Ketorolac Tromethamine 15 mg 11/01/24 18:03 11/03/24 10:59 Ketorolac 15 Mg/Ml 1 Ml Vial IVP 11/04/24 18:05 15 mg Q6HR PRN Administration Moderate Pain (Scale 4 to 6) Miscellaneous Information 1 each 11/02/24 15:33 Rx Info: Iv Contrast Was Given 1 Each Mis MISCELLANE 11/04/24 15:34 DAILY PRN Per Protocol Naloxone HCl 0.2 mg 11/01/24 18:03 Naloxone 0.4 Mg/Ml 1 Ml Vial IV Q2M PRN Opioid Reversal Ondansetron HCl 4 mg 11/02/24 00:58 Ondansetron 4 Mg/2 Ml Vial IVP Q6HR PRN Nausea And Vomiting Polyethylene Glycol 17 gm 11/02/24 21:00 11/02/24 19:50 Polyethylene Glycol 3350 17 Gm Powd.Pack PO 17 gm HS KAMINI Administration Senna 8.6 mg 11/02/24 00:55 Sennosides 8.6 Mg Tab PO BID PRN Constipation Objective - Vital Signs Vital signs: Vital Signs Temp 98.2 F 11/03/24 12:52 Pulse 60 11/03/24 12:52 Resp 20 11/03/24 12:52 BP 127/83 11/03/24 12:52 Pulse Ox 98 11/03/24 12:52 FiO2 Intake & Output 11/02/24 11/03/24 11/03/24 18:59 06:59 18:59 Intake Total 2280 Balance 2280 Weight 58.513 kg Intake: Oral 2280 Other: Voiding Method Diaper Diaper # Voids 5 2 # Bowel Movements 1 - Exam GENERAL: The patient is alert and oriented x3, not in any acute distress. Well developed, well nourished. HEENT: Pupils are round and equally reacting to light. EOMI. No scleral icterus. No conjunctival pallor. Normocephalic, atraumatic. No pharyngeal erythema. No thyromegaly. CARDIOVASCULAR: S1 and S2 present. No murmurs, rubs, or gallops. PULMONARY: Chest is clear to auscultation, no wheezing , no crackles. -ABDOMEN: Soft, no mild suprapubic tenderness, nondistended, normoactive bowel sounds. No palpable organomegaly. MUSCULOSKELETAL: No joint swelling or deformity. EXTREMITIES: No cyanosis, clubbing, or pedal edema. NEUROLOGICAL: Gross neurological examination did not reveal any focal deficits. SKIN: No rashes. no petechiae. - Labs CBC & Chem 7: 11/01/24 16:52 11/01/24 16:52 Labs: Microbiology - Last 24 Hours (Table) 11/01/24 16:52 Urine Culture - Final Urine,Voided Assessment and Plan Assessment: -Lower abdominal pain and vaginal spotting with recent CT scan revealing endometrial thickening unable to rule out underlying cancerous process. Cervical cancer suspected and there is suspicion of pulmonary nodules secondary metastatic disease Abnormal urinalysis concern for acute UTI Urinary incontinence Hypertension Chronic nicotine use Mildly elevated calcium Plan: Continue with ceftriaxone total 5 days Hematology/oncology team consult Gynecology team consult Continue with gentle hydration Pain management Xanax as needed for anxiety DVT prophylaxis: Pepcid GI prophylaxis: Subcutaneous heparin Full code
[2024-11-03] MEDS: HYDROcodone/APAP 5-325MG 1 EACH TAB PO PRN (17:56)
[2024-11-03] MEDS: FAMOTIDINE 20 MG/2 ML VIAL IV SCH (20:14)
[2024-11-03] MEDS: HEPARIN SODIUM,PORCINE 5,000 UNIT/ML 1 ML VIAL SQ SCH (20:14)
--- NOTE | 2024-11-04 12:36 | P.PN ---
Subjective Progress Note Date: 11/04/24 Principal diagnosis: Cervical mass -Afebrile, no acute events overnight -Continues to have persistent pain in the pelvis, hips, and low back requiring use of Dilaudid 1 mg every 3 hours [id number] -CT lumbar spine revealed no evidence of metastatic disease with L5-S1 anterior listhesis -CT of the chest noted multiple small nodules in the lungs bilaterally. There is no prior CT imaging of the chest Objective - Vital Signs Vital signs: Vital Signs Temp 98.0 F 11/04/24 07:31 Pulse 67 11/04/24 07:31 Resp 16 11/04/24 07:31 BP 133/83 11/04/24 07:31 Pulse Ox 99 11/04/24 07:31 FiO2 Intake & Output 11/03/24 11/04/24 11/04/24 17:59 06:59 18:59 Intake Total Balance Intake: Intake, IV Titration Amount Sodium Chloride 0.9% 1, 000 ml @ 75 mls/hr IV . [id number] [facility] Rx#:[id number] Oral Other: Voiding Method # Voids # Bowel Movements - Constitutional General appearance: Present: cooperative, mild distress - EENT Eyes: Present: EOMI - Respiratory Details: Nonlabored breathing - Cardiovascular Details: Warm and well-perfused - Gastrointestinal General gastrointestinal: Present: soft, tenderness. Absent: distended - Integumentary Integumentary: Absent: rash - Neurologic Neurologic: Present: CNII-XII intact. Absent: focal deficits - Psychiatric Psychiatric: Present: A&O x's 3 - Labs CBC & Chem 7: 11/01/24 16:52 11/01/24 16:52 Assessment and Plan (1) Abnormal CT scan, pelvis Current Visit: Yes Status: Acute Priority: High Code(s): R93.5 - ABN FINDINGS ON DX IMAGING OF ABD REGIONS, INC RETROPERITON SNOMED Code(s): 99758539498787096 (2) Pelvic mass Current Visit: Yes Status: Acute Priority: High Code(s): R19.00 - INTRA- ABD AND PELVIC SWELLING, MASS AND LUMP, UNSP SITE SNOMED Code(s): 78440140 (3) Pelvic pain Current Visit: Yes Status: Acute Priority: High Code(s): R10.2 - PELVIC AND PERINEAL PAIN SNOMED Code(s): 63546724 Plan: Pelvic mass, pelvic pain, back pain: Presented to the hospital for pelvic pain and lower back pain, was recently seen in the ER for the same. Patient states that she has not had a normal period since early summer and has been having intermittent episodes of bright red and brown spotting since with hot flashes, contributing symptoms to early menopause. Pt f/u with her PCP for evaluation and referral to log preparer onc but was referred to the ER for uncontrolled pelvic pain -On 10/28/2024 CT abdomen pelvis with contrast showing abnormal wall thickening of the cervix and lower uterine segment with gas and fluid identified. Additional endometrial fluid with eccentric endometrial mass identified measuring up to 2.8 cm. Multiple enlarged periaortic/pericaval and bilateral common iliac chain lymph nodes with necrotic appearance. Bilateral indeterminant ovarian cystic lesions. Transvaginal ultrasound showing cervical bulkiness which could represent neoplasm. Dilated fluid-filled endometrium. Uterine body 3.4 cm heterogeneous mass -Patient was recently treated UTI with Keflex but did not have improvement in symptoms. UA suspicious for UTI, Rocephin has been started with urine culture negative -CT of the lumbar spine revealed no evidence of metastatic disease with anterior listhesis of L5 on S1 due to degenerative changes -CT of the chest did note multiple small nodules in both lungs -Imaging results were reviewed with Ines today -As she does have smoking history and no prior CT imaging of the chest, it is difficult to a certain whether findings in the chest were present metastatic disease or could be reactive to cigarette smoking -Based on the imaging findings, there is a concern for locally advanced or metastatic cervical cancer -She was seen by gynecology and recommended to be transferred to a tertiary center or gynecologic oncology is available to obtain tissue diagnosis -Given her significant pain and discomfort, I do agree transferring to a tertiary center with gynecologic oncology would be beneficial to obtain tissue diagnosis -This could then be sent for PD-L1 and molecular profiling -We did discuss necessity of PET/CT outpatient for additional staging, which would then help formulate plan -[place] was changed to 10/325 every 4 hours as needed instead of 5/325 every 6 hours as needed -Continue Dilaudid 1 mg IV every 3 hours as needed for severe pain Darrius Newberry MD Time with Patient: Greater than 30
[2024-11-04] MEDS: HYDROcodone/APAP 10-325MG 1 EACH TAB PO PRN (13:05)
--- NOTE | 2024-11-04 15:34 | P.PN ---
Subjective This is a 49 female medical history of smoking and hypertension patient comes into the hospital secondary to severe 8 to 9/10 abdominal pain in the lower abdomen. Patient states that the pain is also radiating to her hips and lower back. Patient states that she has not had a normal period since early summer and has been having intermittent episodes of bright red and brown spotting since. She states that she will bleed for a day spotting fill a pad and the padding will stop. She felt like she was going through menopause and did not think anything of this. Patioh has been having urinary incontinence over the last few weeks, and also states that she has not been able to have a normal bowel movement has been fluctuating between diarrhea and constipation. In the last few weeks she started to have this significant pain she followed up with her family doctor and had a abdominal pelvis CT completed which reveals abnormal wall thickening of the cervix and lower uterine segment with gas and fluid identified there is additional endometrial fluid eccentric endometrial mass identified findings are concerning for malignancy until proven otherwise direct visualization is recommended consider further evaluation with pelvic ultrasound. There are mild couple enlarged periaortic and pericaval and bilateral common iliac chain lymph nodes with necrotic appearance highly concerning for metastasis. Close approximation of the rectum with the cervix cannot exclude fistula. Bilateral indeterminant ovarian cystic lesions correlate for #1. T ransvaginal ultrasound reveals a cervical bulkiness which could represent neoplasm compared to recent CT. Other etiologies include infectious/inflammatory and a gynecological examination is recommended. A dilated fluid-filled endometrium which may related to #1 causing stenosis. Uterine body 3.4 cm heterogeneous mass which may resent a fibroid versus other etiologies. Recommend further evaluation with MRI. Patient was admitted to the hospital for pain management with a consult placed to oncology and gynecology and this was explained to the patient that we are we are still waiting evaluati on from gynecology. If possible patient would prefer to be discharged if her pain is managed in follow-up on an outpatient basis but we again need to wait for gynecology consultation. Patients urinalysis was significantly abnormal with cloudy appearance, trace protein, 2+ketones, large blood, large leukocyte esterase, 93 RBC, >182 WBC. Patient was started empirically on IV ceftriaxone and urine culture has been taken. Pain management on board. 11/03 Patient presents with cervical mass, suspicion of cancer is high. Also she has CT of the chest suspicious for metastatic disease Patient was informed of the possibility of the cervical cancer today, patient has been seen by gynecology team. Patient currently emotional and crying, support is provided for the patient, she feels fine and does not think she needs medication for now. Daughter at bedside, other family members also were at bedside for support. No chest pain or dyspnea or other respiratory symptoms Patient is kept on ceftriaxone for UTI although urine culture was negative but she still have suprapubic pain radiating to the right hip area. Will continue with antibiotics for total of 5 days 11/04 Patient still complains from lower abdominal pain No other new complaint Patient was still occurring today after she was told about her lung lesions Patient is still willing to proceed with further testing and treatment Her [id number] at bedside for support Emotional support also provided for the patient Hematology/oncology team are following closely Objective - Vital Signs Vital signs: Vital Signs Temp 98.1 F 11/04/24 13:44 Pulse 77 11/04/24 13:44 Resp 20 11/04/24 13:44 BP 132/84 11/04/24 13:44 Pulse Ox 97 11/04/24 13:44 FiO2 Intake & Output 11/03/24 11/04/24 11/04/24 17:59 06:59 18:59 Intake Total Balance Intake: Intake, IV Titration Amount Sodium Chloride 0.9% 1, 000 ml @ 75 mls/hr IV . [id number] [facility] Rx#:[id number] Oral Other: Voiding Method # Voids # Bowel Movements - Exam GENERAL: The patient is alert and oriented x3, not in any acute distress. Well developed, well nourished. HEENT: Pupils are round and equally reacting to light. EOMI. No scleral icterus. No conjunctival pallor. Normocephalic, atraumatic. No pharyngeal erythema. No thyromegaly. CARDIOVASCULAR: S1 and S2 present. No murmurs, rubs, or gallops. PULMONARY: Chest is clear to auscultation, no wheezing , no crackles. -ABDOMEN: Soft, no mild suprapubic tenderness, nondistended, normoactive bowel sounds. No palpable organomegaly. MUSCULOSKELETAL: No joint swelling or deformity. EXTREMITIES: No cyanosis, clubbing, or pedal edema. NEUROLOGICAL: Gross neurological examination did not reveal any focal deficits. SKIN: No rashes. no petechiae. - Labs CBC & Chem 7: 11/01/24 16:52 11/01/24 16:52 Assessment and Plan Assessment: -Lower abdominal pain and vaginal spotting with recent CT scan revealing endometrial thickening unable to rule out underlying cancerous process. Cervical cancer suspected and there is suspicion of pulmonary nodules secondary metastatic disease Abnormal urinalysis concern for acute UTI Urinary incontinence Hypertension Chronic nicotine use Mildly elevated calcium Plan: Continue with ceftriaxone total 5 days Hematology/oncology team consult Gynecology team consult Continue with gentle hydration Pain management Xanax as needed for anxiety DVT prophylaxis: Pepcid GI prophylaxis: Subcutaneous heparin Full code
--- NOTE | 2024-11-05 15:40 | P.PN ---
Subjective Progress Note Date: 11/05/24 This is a 49 female medical history of smoking and hypertension patient comes into the hospital secondary to severe 8 to 9/10 abdominal pain in the lower abdomen. Patient states that the pain is also radiating to her hips and lower back. Patient states that she has not had a normal period since early summer and has been having intermittent episodes of bright red and brown spotting since. She states that she will bleed for a day spotting fill a pad and the padding will stop. She felt like she was going through menopause and did not think anything of this. Brenton has been having urinary incontinence over the last few weeks, and also states that she has not been able to have a normal bowel movement has been fluctuating between diarrhea and constipation. In the last few weeks she started to have this significant pain she followed up with her family doctor and had a abdominal pelvis CT completed which reveals abnormal wall thickening of the cervix and lower uterine segment with gas and fluid identified there is additional endometrial fluid eccentric endometrial mass identified findings are concerning for malignancy until proven otherwise direct visualization is recommended consider further evaluation with pelvic ultrasound. There are mild couple enlarged periaortic and pericaval and bilateral common iliac chain lymph nodes with necrotic appearance highly concerning for metastasis. Close approximation of the rectum with the cervix cannot exclude fistula. Bilateral indeterminant ovarian cystic lesions correlate for #1. Transvaginal ultrasound reveals a cervical bulkiness which could represent neoplasm compared to recent CT. Other etiologies include infectious/inflammatory and a gynecological examination is recommended. A dilated fluid-filled endometrium which may related to #1 causing stenosis. Uterine body 3.4 cm heterogeneous mass which may resent a fibroid versus other etiologies. Recommend further evaluation with MRI. Patient was admitted to the hospital for pain management with a consult placed to oncology and gynecology and this was explained to the patient that we are we are still waiting evaluation from gynecology. If possible patient would prefer to be discharged if her pain is managed in follow-up on an outpatient basis but we again need to wait for gynecology consultation. Patients urinalysis was significantly abnormal with cloudy appearance, trace protein, 2+ketones, large blood, large leukocyte esterase, 93 RBC, >182 WBC. Patient was started empirically on IV ceftriaxone and urine culture has been taken. Pain management on board. 11/05/2024 Patient is evaluated today in follow up sitting up in the bed and continues to report significant pain to the lower pelvic/abdominal and lower back region. Currently a 7/10 and this is after receiving IV dilaudid. The dilaudid is 1 mg every 3 hours and patient is barely holding over to the 3rd hour. She was evaluated on november 03 by Gynecology who recommended transfer to tertiary care for environmental health sanitarian onc evaluation as patient has been experiencing urinary incontinence, enlarged lymph nodes and bulky cervix noted on diagnostic imaging. Patient was also evaluated by oncology who performed chest CT which reveals multiple innumerable pulmonary nodules, likely metastatic disease to the lung. The large st is in the left lower lobe and is approximately 7mm in size. As both oncology and CREDIT CLERK have recommended over the weekend for transfer to tertiary care transfer has been initiated. Dr. Rodriguez with internal medicine at [facility] has accepted and we are awaiting confirmation from CREDIT CLERK/ONC that they will be on consult for this patient for biopsy/dx. REVIEW OF SYSTEMS: CONSTITUTIONAL: No fever, no malaise, no fatigue. HEENT: No recent visual problems or hearing problems. Denied any sore throat. CARDIOVASCULAR: No chest pain, orthopnea, PND, no palpitations, no syncope. PULMONARY: No shortness of breath, no cough, no hemoptysis. GASTROINTESTINAL: No diarrhea, no nausea, no vomiting. Reports lower abdominal pain. NEUROLOGICAL: No headaches, no weakness, no numbness. PHYSICAL EXAMINATION: GENERAL: The patient is alert and oriented x3, not in any acute distress. Well developed, well nourished. HEENT: Pupils are round and equally reacting to light. EOMI. No scleral icterus. No conjunctival pallor. Normocephalic, atraumatic. No pharyngeal erythema. No thyromegaly. CARDIOVASCULAR: S1 and S2 present. No murmurs, rubs, or gallops. PULMONARY: Chest is clear to auscultation, no wheezing or crackles. ABDOMEN: Soft, nontender, nondistended, normoactive bowel sounds. No palpable o rganomegaly. MUSCULOSKELETAL: No joint swelling or deformity. EXTREMITIES: No cyanosis, clubbing, or pedal edema. NEUROLOGICAL: Gross neurological examination did not reveal any focal deficits. SKIN: No rashes. Assessment and Plan Intractible Lower abdominal pain and vaginal spotting with recent CT scan revealing endometrial thickening unable to rule out underlying cancerous process Abnormal urinalysis concern for acute UTI ; urine culture negative CT of the chest suspicious for metastatic disease Urinary incontinence Hypertension Chronic nicotine use Mildly elevated calcium GI prophylaxis Full Code Continue IV ceftriaxone for 1 more day; urine culture negative. Continue pain management with combination of IV dilaudid, and oral norco Gynecology and oncology following My need to be considered for environmental health sanitarian onc evaluation considering the degree of her pain and diagnostics findings. Dr Rodriguez at [facility] has accepted this transfer for internal medicine and pending CREDIT CLERK/ONC okay with consult before final accepting decision made to transfer. Repeat BMP in the AM The impression and plan of care has been dictated by Danica Lowry, Nurse Practitioner as directed. Dr. Radha MD I have performed a history and physical examination and medical decision making of this patient, discussed the same with the dictator, and agree with the dictators assessment and plan as written, documented as a scribe. Based on total visit time, I have performed more than 50% of this visit. Objective - Vital Signs Vital signs: Vital Signs Temp 98.2 F 11/05/24 12:08 Pulse 74 11/05/24 12:08 Resp 18 11/05/24 12:08 BP 119/81 11/05/24 12:08 Pulse Ox 99 11/05/24 12:08 FiO2 Intake & Output 11/04/24 11/05/24 11/05/24 18:59 06:59 18:59 Intake Total 480 590 Balance 480 590 Intake: Oral 480 590 Other: # Voids 3 2 - Labs CBC & Chem 7: 11/01/24 16:52 11/01/24 16:52 Assessment and Plan Time with Patient: Less than 30
[2024-11-05 20:04] VITALS: BP 143/82; PULSE 60; RESP 14; TEMP 98.1
--- NOTE | 2024-11-08 21:52 | P.DS ---
Providers Date of admission: 11/01/24 19:53 Attending physician: Pearl Proctor Consults: 11/01/24 18:03 Consult Physician Urgent Consulting Provider: Asim Simon Consult Reason/Comments: pelvic mass Do you want consulting provider notified?: Yes, Notify in am Consult Physician Urgent Consulting Provider: Handy Rodriguez Consult Reason/Comments: abnormal CT/US, pelvic mass Do you want consulting provider notified?: Yes Primary care physician: Josue Spain Hospital Course: Final Diagnosis Intractible Lower abdominal pain and vaginal spotting with recent CT scan revealing endometrial thickening unable to rule out underlying cancerous process Abnormal urinalysis concern for acute UTI ; urine culture negative CT of the chest suspicious for metastatic disease Urinary incontinence Hypertension Chronic nicotine use Mildly elevated calcium Discharge Disposition Patient was transferred to [facility] on 11/06/2024 for SCOOP MACHINE OPERATOR ONC consultation. Dr. Rodriguez accepted under internal medicine and Dr. Holliday has accepted as SCOOP MACHINE OPERATOR ONC consult. Hospital Course This is a 49 female medical history of smoking and hypertension patient comes into the hospital secondary to severe 8 to 9/10 abdominal pain in the lower abdomen. Patient states that the pain is also radiating to her hips and lower back. Patient states that she has not had a normal period since early summer and has been having intermittent episodes of bright red and brown spotting since. She states that she will bleed for a day spotting fill a pad and the padding will stop. She felt like she was going through menopause and did not th ink anything of this. Patiet has been having urinary incontinence over the last few weeks, and also states that she has not been able to have a normal bowel movement has been fluctuating between diarrhea and constipation. In the last few weeks she started to have this significant pain she followed up with her family doctor and had a abdominal pelvis CT completed which reveals abnormal wall thickening of the cervix and lower uterine segment with gas and fluid identified there is additional endometrial fluid eccentric endometrial mass identified findings are concerning for malignancy until proven otherwise direct visualization is recommended consider further evaluation with pelvic ultrasound. There are mild couple enlarged periaortic and pericaval and bilateral common iliac chain lymph nodes with necrotic appearance highly concerning for metastasis. Close approximation of the rectum with the cervix cannot exclude fistula. Bilateral indeterminant ovarian cystic lesions correlate for #1. Transvaginal ultrasound reveals a cervical bulkiness which could represent neoplasm compared to recent CT. Other etiologies include infectious/inflammatory and a gynecological examination is recommended. A dilated fluid-filled endometrium which may related to #1 causing stenosis. Uterine body 3.4 cm heterogeneous mass which may resent a fibroid versus other etiologies. Recommend further evaluation with MRI. Patient was admitted to the hospital for pain management with a consult placed to oncology and gynecology and this was explained to the patient that we are we are still waiting rigoberto luation from gynecology. If possible patient would prefer to be discharged if her pain is managed in follow-up on an outpatient basis but we again need to wait for gynecology consultation. Patients urinalysis was significantly abnormal with cloudy appearance, trace protein, 2+ketones, large blood, large leukocyte esterase, 93 RBC, >182 WBC. Patient was started empirically on IV ceftriaxone and urine culture has been taken. Pain management on board with IV toradol, IV dilaudid, oral norco q4h. Patient continues to report significant pain to the lower pelvic/abdominal and lower back region. Currently a 03/07 and this is after receiving IV dilaudid. The dilaudid is 1 mg every 3 hours and patient is barely holding over to the 3rd hour. She was evaluated on november 03 by Gynecology who recommended transfer to tertiary care for ob gyn physician assistant onc evaluation as patient has been experiencing urinary incontinence, enlarged lymph nodes and bulky cervix noted on diagnostic imaging. Patient was also evaluated by oncology who performed chest CT which reveals multiple innumerable pulmonary nodules, likely metastatic disease to the lung. The largest is in the left lower lobe and is approximately 7mm in size. As both oncology and SCOOP MACHINE OPERATOR have recommended over the weekend for transfer to tertiary care transfer has been initiated. Dr. Rodriguez with internal medicine at [facility] has accepted and we are awaiting confirmation from SCOOP MACHINE OPERATOR/ONC that they will be on consult for this patient for biopsy/dx. Dr Holliday with SCOOP MACHINE OPERATOR ONC has accepted this patient. Patient was transferred to [facility]. Please see medication reconciliation for a list of current medications. Thank you for allowing us to participate in the care of this patient. The impression and plan of care has been dictated by Danica Lowry, Nurse Practitioner as directed. Dr. Radha MD I have performed a history and physical examination and medical decision making of this patient, discussed the same with the dictator, and agree with the dictators assessment and plan as written, documented as a scribe. Based on total visit time, I have performed more than 50% of this visit. Patient Condition at Discharge: Fair Plan - Discharge Summary Discharge Rx Participant: Yes New Discharge Prescriptions: No Action oxyBUTYnin chloride [oxyBUTYnin chloride ER] 5 mg PO HS Ibuprofen [Motrin] 800 mg PO Q8H PRN #30 tab PRN Reason: Pain Ondansetron Odt [Zofran Odt] 4 mg PO Q8HR PRN #15 tab PRN Reason: Nausea And Vomiting Cholecalciferol (Vitamin D3) [Vitamin D3 (50 Mcg = 2000 Iu)] 50 mcg PO HS Acetaminophen Tab [Tylenol Tab] 1,000 mg PO Q6HR PRN PRN Reason: Fever And/ Or Pain HYDROcodone/APAP 7.5-325MG [[place] 7.5-325] 1 tab PO Q4H PRN 3 Days #18 tab PRN Reason: Pain Discharge Medication List Acetaminophen Tab [Tylenol Tab] 1,000 mg PO Q6HR PRN 10/01/24 [History] Cholecalciferol (Vitamin D3) [Vitamin D3 (50 Mcg = 2000 Iu)] 50 mcg PO HS 10/01/24 [History] oxyBUTYnin chloride [oxyBUTYnin chloride ER] 5 mg PO HS 10/01/24 [History] HYDROcodone/APAP 7.5-325MG [[place] 7.5-325] 1 tab PO Q4H PRN 3 Days #18 tab 10/28/24 [Rx] Ibuprofen [Motrin] 800 mg PO Q8H PRN #30 tab 10/28/24 [Rx] Ondansetron Odt [Zofran Odt] 4 mg PO Q8HR PRN #15 tab 10/28/24 [Rx] Follow up Appointment(s)/Referral(s): Josue Spain [Primary Care Provider] - 1-2 days Discharge Disposition: TRANSFER TO SHORT TERM HOSP
== END 2024-11-06 01:00 | disposition short-term general hospital (02) | DRG 530 ==
LOC: EC 16:07 → OBSVTOIN 19:53 → 5NMEDONC 19:53
PROVIDERS: ADMIT Hospitalist; ATTEND Hospitalist
DX: C53.9 Malignant neoplasm of cervix uteri, unspecified (principal); C78.00 Secondary malignant neoplasm of unspecified lung; F17.200 Nicotine dependence, unspecified, uncomplicated; I10 Essential (primary) hypertension; Z28.21 Immunization not carried out because of patient refusal; K59.00 Constipation, unspecified; N39.0 Urinary tract infection, site not specified; N95.1 Menopausal and female climacteric states; R32 Unspecified urinary incontinence; R59.0 Localized enlarged lymph nodes; Z71.3 Dietary counseling and surveillance; E83.59 Other disorders of calcium metabolism
CPT/HCPCS: 36415; 71260; 72132; 80053; 81001; 83605; 85025; 86304; 87086; 96361; 96374; 99285

== ENCOUNTER 2024-11-18 12:26 | Emergency (ER) | payer OTHER ==
[2024-11-18 12:48] VITALS: TEMP 98
--- NOTE | 2024-11-18 12:55 | ED ---
Abdominal Pain HPI - General Source: patient, family, RN notes reviewed Mode of arrival: ambulatory Limitations: no limitations <Marlene Khan - Last Filed: 11/18/24 12:54> - General Source: patient, family, RN notes reviewed <Kelsey Pineda - Last Filed: 11/18/24 17:53> - General Chief Complaint: Abdominal Pain Stated Complaint: Back and abd pain Time Seen by Provider: 11/18/24 12:54 - History of Present Illness Initial Comments: Quick note: 49-year-old female presented to the ER for evaluation of lower back and abdominal pain. Patient reports she was recently diagnosed with cervical cancer and is scheduled to follow-up with . Patient states she was recently discharged from [facility] on Tuesday. She states her back pain has always been there but it has been worse over the past 24 hours. Patient admits to chills. She denies any bowel or bladder incontinence, saddle paresthesias, fevers or IV drug abuse. Patient seeking pain control. (Marlene Khan) 49-year-old female presenting to the ER for lower abdominal pain. Reports she has been having lower abdominal pain that radiates to the lower back for the past couple of weeks. She was recently diagnosed with likely metastatic cervical cancer at [facility]. States she underwent biopsy and pain control during hospitalization and was discharged last Tuesday. She was told that the biopsy was not sufficient, therefore she has a repeat biopsy scheduled with Dr. Adorno at [facility] tomorrow. States she has been taking Flexeril and morphine at home and it has not been controlling the pain. States the pain has worsened over the past 24 hours. Denies nausea, vomiting, fevers. States she was told she had bacteria in her urine during her hospitalization and was given IV antibiotics. The urine culture was negative. Denies urinary symptoms. She has follow-up with Dr. Simon next week. (Kelsey Pineda) - Related Data Home Medications Medication Instructions Recorded Confirmed Acetaminophen Tab [Tylenol Tab] 1,000 mg PO Q6HR PRN 10/01/24 11/01/24 Cholecalciferol (Vitamin D3) 50 mcg PO HS 10/01/24 11/01/24 [Vitamin D3 (50 Mcg = 2000 Iu)] oxyBUTYnin chloride [oxyBUTYnin 5 mg PO HS 10/01/24 11/01/24 chloride ER] Previous Rx's Medication Instructions Recorded HYDROcodone/APAP 7.5-325MG [[place] 1 tab PO Q4H PRN 3 Days #18 tab 10/28/24 7.5-325] Ibuprofen [Motrin] 800 mg PO Q8H PRN #30 tab 10/28/24 Ondansetron Odt [Zofran Odt] 4 mg PO Q8HR PRN #15 tab 10/28/24 Ketorolac [Toradol] 10 mg PO Q8HR #15 tab 11/18/24 Allergies Allergy/AdvReac Type Severity Reaction Status Date / Time No Known Allergies Allergy Verified 11/18/24 12:48 Review of Systems ROS Other: All systems not noted in ROS Statement are negative. <Marlene Khan - Last Filed: 11/18/24 12:54> ROS Other: All systems not noted in ROS Statement are negative. <Kelsey Pineda - Last Filed: 11/18/24 17:53> ROS Statement: Those systems with pertinent positive or pertinent negative responses have been documented in the HPI. Past Medical History Past Medical History: No Reported History Additional Past Medical History / Comment(s): OB history: She has had 5 vaginal deliveries, one spontaneous and one elective . History of Any Multi-Drug Resistant Organisms: None Reported Past Surgical History: Tubal Ligation Past Anesthesia/Blood Transfusion Reactions: No Reported Reaction Past Psychological History: No Psychological Hx Reported Smoking Status: Current every day smoker Past Alcohol Use History: None Reported Past Drug Use History: None Reported, Marijuana - Past Family History Mother Family Medical History: Dementia, Myocardial Infarction ([place]) <Marlene Khan - Last Filed: 11/18/24 12:54> General Exam Limitations: no limitations <Marlene Khan - Last Filed: 11/18/24 12:54> General appearance: alert, in no apparent distress Head exam: Present: atraumatic, normocephalic, normal inspection Eye exam: Present: normal appearance, PERRL, EOMI. Absent: scleral icterus, conjunctival injection, periorbital swelling ENT exam: Present: normal exam, mucous membranes moist Neck exam: Present: normal inspection. Absent: tenderness, meningismus, lymphadenopathy Respiratory exam: Present: normal lung sounds bilaterally. Absent: respiratory distress, wheezes, rales, rhonchi, stridor Cardiovascular Exam: Present: regular rate, normal rhythm, normal heart sounds. Absent: systolic murmur, diastolic murmur, rubs, gallop, clicks GI/Abdominal exam: Present: soft, tenderness (Diffuse lower abdominal tenderness), normal bowel sounds. Absent: distended, guarding, rebound, rigid Neurological exam: Present: alert, oriented X3 Psychiatric exam: Present: normal affect, normal mood Skin exam: Present: warm, dry, intact, normal color. Absent: rash <Kelsey Pineda - Last Filed: 11/18/24 17:53> - General Exam Comments Initial Comments: Visual Physical Exam Vital signs reviewed General: Well-appearing, nontoxic, no acute distress. Head: Normocephalic, atraumatic Eyes: PERRLA, EOMI ENT: Airway patent Chest: Nonlabored breathing Skin: No visual rash, normal skin tone Neuro: Alert and oriented 3 Musculoskeletal: No gross abnormalities (Marlene Khan) Course Vital Signs 11/18/24 11/18/24 12:43 17:08 Temperature 98.0 F Pulse Rate 115 H 74 Respiratory 18 17 Rate Blood Pressure 131/76 116/87 O2 Sat by Pulse 98 98 Oximetry Medical Decision Making <Marlene Khan - Last Filed: 11/18/24 12:54> - Lab Data Result diagrams: 11/18/24 12:54 11/18/24 15:30 <Kelsey Pineda - Last Filed: 11/18/24 17:53> - Medical Decision Making I performed the quick note portion of this chart. Electronically signed by Marlene Khan PA-C (Marlene Khan) Was pt. sent in by a medical professional or institution (ANJALI Bryant, SOCIAL SERVICES DESIGNEE, urgent care, hospital, or residential...) When possible be specific @ -No Did you speak to anyone other than the patient for history (EMS, parent, family, police, friend...)? What history was obtained from this source @ -No Did you review nursing and triage notes (agree or disagree)? Why? @ -I reviewed and agree with nursing and triage notes Were old charts reviewed (outside hosp., previous admission, EMS record, old EKG, old radiological studies, urgent care reports/EKG's, residential records)? Report findings @ -Previous admission note reviewed, reviewed prior imaging including CT rev ealing endometrial thickening possibly cervical cancer, CT chest suspicious for metastatic disease Differential Diagnosis (chest pain, altered mental status, abdominal pain women, abdominal pain men, vaginal bleeding, weakness, fever, dyspnea, syncope, headache, dizziness, GI bleed, back pain, seizure, CVA, palpatations, mental health, musculoskeletal)? @ -Differential Abdominal Pain Women: Appendicitis, Cholecystitis, diverticulosis, ischemic bowel, pancreatitis, hepatitis, UTI, gastroenteritis, AAA, incarcerated hernia, bowel obstruction, constipation, inflammatory bowel, hepatitis, peptic ulcer disease, splenic infarction, perforated viscus, vulvitis, ovarian torsion, PID, kidney stone, placenta abruption, this is not meant to be an all-inclusive list EKG interpreted by me (3pts min.). @ -None X-rays interpreted by me (1pt min.). @ -None done CT interpreted by me (1pt min.). @ -None done U/S interpreted by me (1pt. min.). @ -None done What testing was considered but not performed or refused? (CT, X-rays, U/S, labs)? Why? @ -Imaging deferred due to recent imaging for similar symptoms, no acute symptoms What meds were considered but not given or refused? Why? @ -None Did you discuss the management of the patient with other professionals (professionals i.e. , PA, SOCIAL SERVICES DESIGNEE, lab, RT, psych nurse, social work specialist, powder compounder, teacher, custody officer, mattress spring encaser)? Give summary @ -No Was smoking cessation discussed for >3mins.? @ -No Was critical care preformed (if so, how long)? @ -No Were there social determinants of health that impacted care today? How? (Homelessness, low income, unemployed, alcoholism, drug addiction, transportation, low edu. Level, literacy, decrease access to med. care, usp, rehab)? @ -No Was there de-escalation of care discussed even if they declined (Discuss DNR or withdrawal of care, Hospice)? DNR status @ -No What co-morbidities impacted this encounter? (DM, HTN, Smoking, COPD, CAD, Cancer, CVA, ARF, Chemo, Hep., AIDS, mental health diagnosis, sleep apnea, morbid obesity)? @ -None Was patient admitted / discharged? Hospital course, mention meds given and route, prescriptions, significant lab abnormalities, going to OR and other pertinent info. @ - discharge. 49-year-old female presenting for lower abdominal pain. She was recently diagnosed with suspected metastatic cervical cancer and discharged from [facility] last Tuesday after undergoing biopsy. She has close follow- up with Dr. Simon from oncology. She reports her pain medications at home are not controlling her pain. Denies any new symptoms or red flag symptoms such as fevers, nausea, vomiting. Patient is tachycardic, afebrile. Patient is provided with IV fluids, Dilaudid, and Toradol. Lab work largely unremarkable compared to previous besides alk phos which is elevated at 208. Urinalysis reveals large amount of white blood cells and red blood cells comparable to pre vious likely due to cervical cancer. Previous urine culture from 12 days ago returned negative for growth therefore will not treat for UTI at this time. After 2 doses of Dilaudid, patient is resting comfortably and pain is controlled. As there are no acute symptoms, pain is controlled, and the patient has close outpatient follow-up, I feel it is safe to discharge patient home with strict return precautions. Patient is agreeable to this plan. Appropriate return precautions and follow-up care discussed. Prescribed outpatient Toradol to take in addition to patient's at home morphine, Flexeril, and Tylenol. Case was discussed with my ED attending Dr. Rutledge. Undiagnosed new problem with uncertain prognosis? @ -No Drug Therapy requiring intensive monitoring for toxicity (Heparin, Nitro, In sulin, Cardizem)? @ -No Were any procedures done? @ -No Diagnosis/symptom? @ -Intractable abdominal pain Acute, or Chronic, or Acute on Chronic? @ -Acute Uncomplicated (without systemic symptoms) or Complicated (systemic symptoms)? @ -Complicated Side effects of treatment? @ -No Exacerbation, Progression, or Severe Exacerbation? @ -No Poses a threat to life or bodily function? How? (Chest pain, [place], [place], pneumonia, PE, COPD, DKA, ARF, appy, cholecystitis, CVA, Diverticulitis, Homicidal, Suicidal, threat to staff... and all critical care pts) @ -Yes, abdominal pain secondary to metastatic cervical cancer (Kelsey Pineda) - Lab Data Lab Results 11/18/24 11/18/24 11/18/24 Range/Units 12:54 12:54 12:54 WBC 7.5 (3.8-10.6) k/uL RBC 4.66 (3.80-5.40) m/uL Hgb 14.3 (11.4-16.0) gm/dL Hct 45.4 (34.0-46.0) % MCV 97.4 (80.0-100.0) fL MCH 30.6 (25.0-35.0) pg MCHC 31.5 (31.0-37.0) g/dL RDW 13.8 (11.5-15.5) % Plt Count 441 (150-450) k/uL MPV 8.2 Neutrophils % 73 % Lymphocytes % 17 % Monocytes % 7 % Eosinophils % 1 % Basophils % 0 % Neutrophils # 5.5 (1.3-7.7) k/uL Lymphocytes # 1.2 (1.0-4.8) k/uL Monocytes # 0.5 (0-1.0) k/uL Eosinophils # 0.1 (0-0.7) k/uL Basophils # 0.0 (0-0.2) k/uL Sodium (137-145) mmol/L Potassium (3.5-5.1) mmol/L Chloride (98-107) mmol/L Carbon Dioxide (22-30) mmol/L Anion Gap mmol/L BUN (7-17) mg/dL Creatinine (0.52-1.04) mg/dL Est GFR (CKD-EPI)AfAm (>60 ml/min/1.73 sqM) Est GFR (CKD-EPI)NonAf (>60 ml/min/1.73 sqM) Glucose (74-99) mg/dL Plasma Lactic Acid Johnathon 1.1 (0.7-2.0) mmol/L Calcium (8.4-10.2) mg/dL Total Bilirubin (0.2-1.3) mg/dL AST (14-36) U/L ALT (4-34) U/L Alkaline Phosphatase (38-126) U/L Total Protein (6.3-8.2) g/dL Albumin (3.5-5.0) g/dL Amylase (30-110) U/L Lipase (23-300) U/L Urine Color Light Yellow Urine Appearance Cloudy H (Clear) Urine pH 7.5 (5.0-8.0) Ur Specific [place] 1.007 (1.001-1.035) Urine Protein Trace H (Negative) Urine Glucose (UA) Negative (Negative) Urine Ketones Negative (Negative) Urine Blood Large H (Negative) Urine Nitrite Negative (Negative) Urine Bilirubin Negative (Negative) Urine Urobilinogen <2.0 (<2.0) mg/dL Ur Leukocyte Esterase Large H (Negative) Urine RBC 115 H (0-5) /hpf Urine WBC >182 H (0-5) /hpf Urine WBC Clumps Few H (None) /hpf Ur Squamous Epith Cells <1 (0-4) /hpf Urine Bacteria Rare H (None) /hpf 11/18/24 Range/Units 15:30 WBC (3.8-10.6) k/uL RBC (3.80-5.40) m/uL Hgb (11.4-16.0) gm/dL Hct (34.0-46.0) % MCV (80.0-100.0) fL MCH (25.0-35.0) pg MCHC (31.0-37.0) g/dL RDW (11.5-15.5) % Plt Count (150-450) k/uL MPV Neutrophils % % Lymphocytes % % Monocytes % % Eosinophils % % Basophils % % Neutrophils # (1.3-7.7) k/uL Lymphocytes # (1.0-4.8) k/uL Monocytes # (0-1.0) k/uL Eosinophils # (0-0.7) k/uL Basophils # (0-0.2) k/uL Sodium 136 L (137-145) mmol/L Potassium 4.3 (3.5-5.1) mmol/L Chloride 101 (98-107) mmol/L Carbon Dioxide 29 (22-30) mmol/L Anion Gap 6 mmol/L BUN 9 (7-17) mg/dL Creatinine 0.47 L (0.52-1.04) mg/dL Est GFR (CKD-EPI)AfAm >90 (>60 ml/min/1.73 sqM) Est GFR (CKD-EPI)NonAf >90 (>60 ml/min/1.73 sqM) Glucose 88 (74-99) mg/dL Plasma Lactic Acid Johnathon (0.7-2.0) mmol/L Calcium 10.3 H (8.4-10.2) mg/dL Total Bilirubin 0.5 (0.2-1.3) mg/dL AST 33 (14-36) U/L ALT 27 (4-34) U/L Alkaline Phosphatase 208 H (38-126) U/L Total Protein 6.6 (6.3-8.2) g/dL Albumin 3.6 (3.5-5.0) g/dL Amylase 51 (30-110) U/L Lipase 63 (23-300) U/L Urine Color Urine Appearance (Clear) Urine pH (5.0-8.0) Ur Specific [place] (1.001-1.035) Urine Protein (Negative) Urine Glucose (UA) (Negative) Urine Ketones (Negative) Urine Blood (Negative) Urine Nitrite (Negative) Urine Bilirubin (Negative) Urine Urobilinogen (<2.0) mg/dL Ur Leukocyte Esterase (Negative) Urine RBC (0-5) /hpf Urine WBC (0-5) /hpf Urine WBC Clumps (None) /hpf Ur Squamous Epith Cells (0-4) /hpf Urine Bacteria (None) /hpf Disposition <Marlene Khan - Last Filed: 11/18/24 12:54> Is patient prescribed a controlled substance at d/c from ED?: No Time of Disposition: 17:47 <Kelsey Pineda - Last Filed: 11/18/24 17:53> Clinical Impression: Intractable abdominal pain Disposition: HOME SELF-CARE Condition: Stable Additional Instructions: Take Toradol every 8 hours as needed for pain in addition to your morphine, Flexeril, and Tylenol. Follow-up for your biopsy tomorrow and for upcoming appointment with Dr. Simon. Please return to the Emergency Department if symptoms worsen or any other concerns. Prescriptions: Ketorolac [Toradol] 10 mg PO Q8HR #15 tab Referrals: Josue Spain [Primary Care Provider] - 1-2 days
[2024-11-18 15:13] LABS: Appearance,Urine Cloudy (Clear); Bacteria,Urine Rare /hpf; Bilirubin,Urine Negative (Negative); Blood,Urine Large (Negative); Color,Urine Light Yellow; Glucose,Urine (UA) Negative (Negative); Ketones,Urine Negative (Negative); Leukocyte Esterase,Urine Large (Negative); Nitrite,Urine Negative (Negative); PH, Urine 7.5 (5.0-8.0); Protein,Urine Trace (Negative); RBC,Urine 115 /hpf (0-5); Specific Gravity,Urine 1.007 (1.001-1.035); Squamous Epithelial Cell,Urine <1 /hpf (0-4); Urobilinogen,Urine <2.0 mg/dL (<2.0); WBC,Urine >182 /hpf (0-5)
[2024-11-18 15:15] LABS: Basophils % (A) 0 %; Eosinophils # (A) 0.1 k/uL (0-0.7); Eosinophils % (A) 1 %; HCT 45.4 % (34.0-46.0); HGB 14.3 gm/dL (11.4-16.0); Lymphocytes # (A) 1.2 k/uL (1.0-4.8); Lymphocytes % (A) 17 %; MCH 30.6 pg (25.0-35.0); MCHC 31.5 g/dL (31.0-37.0); MCV 97.4 fL (80.0-100.0); Mean Platelet Volume 8.2; Monocytes # (A) 0.5 k/uL (0-1.0); Monocytes % (A) 7 %; Neutrophils # (A) 5.5 k/uL (1.3-7.7); Neutrophils % (A) 73 %; Platelet Count 441 k/uL (150-450); RBC 4.66 m/uL (3.80-5.40); RDW 13.8 % (11.5-15.5); WBC 7.5 k/uL (3.8-10.6)
[2024-11-18] MEDS: HYDROmorphone 1 MG/ML 1 ML SYRINGE IVP STA ×2 (15:36→17:09)
[2024-11-18] MEDS: KETOROLAC 15 MG/ML 1 ML VIAL IVP STA ×2 (15:36→18:24)
[2024-11-18] MEDS: SODIUM CHLORIDE 0.9% 1,000 ML IV STA (15:37)
[2024-11-18 16:10] LABS: ALT 27 U/L (4-34); AST 33 U/L (14-36); African American GFR (CKD) >90 (>60 ml/min/1.73 sqM); Albumin 3.6 g/dL (3.5-5.0); Alkaline Phosphatase 208 U/L (38-126); Amylase 51 U/L (30-110); Anion Gap 6 mmol/L; Blood Urea Nitrogen 9 mg/dL (7-17); Calcium 10.3 mg/dL (8.4-10.2); Carbon Dioxide 29 mmol/L (22-30); Chloride 101 mmol/L (98-107); Glucose 88 mg/dL (74-99); Lipase 63 U/L (23-300); Non-African American GFR(CKD) >90 (>60 ml/min/1.73 sqM); Potassium 4.3 mmol/L (3.5-5.1); Sodium 136 mmol/L (137-145); Total Bilirubin 0.5 mg/dL (0.2-1.3); Total Protein 6.6 g/dL (6.3-8.2)
[2024-11-18 17:09] VITALS: BP 116/87; PULSE 74; RESP 17
== END 2024-11-18 18:28 | disposition home or self-care (01) ==
LOC: EC 12:26
DX: R10.30 Lower abdominal pain, unspecified (principal); R00.0 Tachycardia, unspecified; F17.200 Nicotine dependence, unspecified, uncomplicated
CPT/HCPCS: 36415; 80053; 82150; 83605; 83690; 85025; 81001; 87086; 99284; 96374; 96375; 96376 ×2; 96361 ×2; J1171; J1885

== ENCOUNTER 2024-11-18 23:37 | Emergency (ER) | payer OTHER ==
--- NOTE | 2024-11-19 00:04 | ED ---
Abdominal Pain HPI <Isidro Edmonds - Last Filed: 11/19/24 03:41> - General Source: patient Mode of arrival: ambulatory Limitations: no limitations <Ari Glass - Last Filed: 11/19/24 04:32> - General Chief Complaint: Abdominal Pain Stated Complaint: Pain, Nausea - History of Present Illness Initial Comments: Patient is a 49-year-old female with history of cervical cancer diagnosed in September 2024 presented to the ED with worsening suprapubic abdominal pain for the past few weeks. Patient was recently just discharged from the ER yesterday afternoon and was sent home with Toradol. However, patient reports that she was not able to obtain the Toradol as the pharmacy was closed. Patient noticed that her suprapubic Abdominal pain became worse throughout the day which made her come to the ER last night for evaluation. Patient does have an appointment with her SOLUTION PROFESSIONAL at [facility] tomorrow afternoon for a biopsy of her cervical cancer. Denies fever, chills, nausea, vomiting, chest pain, shortness of breath. (Ari Glass) - Related Data Home Medications Medication Instructions Recorded Confirmed Acetaminophen Tab [Tylenol Tab] 1,000 mg PO Q6HR PRN 10/01/24 11/01/24 Cholecalciferol (Vitamin D3) 50 mcg PO HS 10/01/24 11/01/24 [Vitamin D3 (50 Mcg = 2000 Iu)] oxyBUTYnin chloride [oxyBUTYnin 5 mg PO HS 10/01/24 11/01/24 chloride ER] Previous Rx's Medication Instructions Recorded HYDROcodone/APAP 7.5-325MG [[place] 1 tab PO Q4H PRN 3 Days #18 tab 10/28/24 7.5-325] Ibuprofen [Motrin] 800 mg PO Q8H PRN #30 tab 10/28/24 Ondansetron Odt [Zofran Odt] 4 mg PO Q8HR PRN #15 tab 10/28/24 Ketorolac [Toradol] 10 mg PO Q8HR #15 tab 11/18/24 Allergies Allergy/AdvReac Type Severity Reaction Status Date / Time No Known Allergies Allergy Verified 11/18/24 23:38 Review of Systems ROS Other: All systems not noted in ROS Statement are negative. <Isidro Edmonds - Last Filed: 11/19/24 03:41> ROS Other: All systems not noted in ROS Statement are negative. Constitutional: Denies: fever, chills Respiratory: Denies: cough, dyspnea, wheezes Cardiovascular: Denies: chest pain, palpitations Gastrointestinal: Reports: abdominal pain. Denies: nausea, vomiting, diarrhea, constipation Genitourinary: Denies: urgency, dysuria, hematuria <Ari Glass - Last Filed: 11/19/24 04:32> ROS Statement: Those systems with pertinent positive or pertinent negative responses have been documented in the HPI. Past Medical History Past Medical History: No Reported History Additional Past Medical History / Comment(s): OB history: She has had 5 vaginal deliveries, one spontaneous and one elective . History of Any Multi-Drug Resistant Organisms: None Reported Past Surgical History: Tubal Ligation Past Anesthesia/Blood Transfusion Reactions: No Reported Reaction Past Psychological History: No Psychological Hx Reported Smoking Status: Current every day smoker Past Alcohol Use History: None Reported Past Drug Use History: None Reported, Marijuana - Past Family History Mother Family Medical History: Dementia, Myocardial Infarction ([place]) <Ari Glass - Last Filed: 11/19/24 04:32> General Exam Limitations: no limitations <Ari Glass - Last Filed: 11/19/24 04:32> - General Exam Comments Initial Comments: GENERAL: This is a 49-year-old in no apparent distress at the time of examination. Pleasant and cooperative. HEENT: Head is atraumatic, normocephalic. Pupils are equal, round, and reactive to light. Sclerae anicteric. RESPIRATORY: Clear to auscultation. No wheezes, rales, or rhonchi. No use of ac cessory muscles. CARDIOVASCULAR: Regular rate and rhythm. S1 and S2 noted. No systolic or diastolic murmur auscultated. No JVD noted. No S3 or S4 noted. GASTROINTESTINAL: No abdominal distention. Tenderness to palpation in the suprapubic region INTEGUMENTARY: No cyanosis. No jaundice. No rashes noted. No cellulitis noted. EXTREMITIES: No evidence of peripheral edema. No calf tenderness noted. NEUROLOGIC: Cranial nerves II-XII intact. PSYCHIATRIC: Awake, alert. Appropriate affect. Intact judgement and insight. (Ari Glass) Course Vital Signs 11/18/24 11/19/24 11/19/24 23:39 01:58 03:00 Temperature 97.9 F Pulse Rate 117 H 119 H 96 Respiratory 22 18 18 Rate Blood Pressure 133/90 125/93 126/87 O2 Sat by Pulse 98 98 97 Oximetry 11/19/24 04:00 Temperature Pulse Rate 98 Respiratory 18 Rate Blood Pressure 120/84 O2 Sat by Pulse 95 Oximetry Medical Decision Making <Isidro Edmonds - Last Filed: 11/19/24 03:41> <Ari Glass - Last Filed: 11/19/24 04:32> - Medical Decision Making I personally saw the patient and performed the critical portion of the service. I discussed the patient care with the Dr. Glass. I directed management, care planning and final disposition of the patient. This includes, but not limited to, review of all lab work, radiological studies, EKG's, consultations, vital signs, and nursing notes. EKG interpreted by me (3pts min.) @ [as above] X-Rays interpreted by me (1 pt min.) @ [none] CT interpreted by me ( 1pt min.) @ [none] U/S interpreted by me (1 pt min.) @ [none] Critical care time of [0] minutes excluding separately billable procedures was spent in conjunction with critical care activities provided by the Resident and Attending simultaneously. I was present during [no procedures] for all critical portions of the procedure and as immediately available to furnish service during the entire procedure. (Isidro Edmonds) Was pt. sent in by a medical professional or institution (, PA, SURVEILLANCE DIRECTOR, urgent care, hospital, or care home...) When possible be specific @ -[No] Did you speak to anyone other than the patient for history (EMS, parent, family, police, friend...)? What history was obtained from this source @ -Patient's family Did you review nursing and triage notes (agree or disagree)? Why? @ -[I reviewed and agree with nursing and triage notes] Were old charts reviewed (outside hosp., previous admission, EMS record, old EKG, old radiological studies, urgent care reports/EKG's, care home records)? Report findings @ -[No old charts were reviewed] Differential Diagnosis? @ -Cancer-related pain EKG interpreted by me (3pts min.). @ -[As above] X-rays interpreted by me (1pt min.). @ -[None done] CT interpreted by me (1pt min.). @ -[None done] U/S interpreted by me (1pt. min.). @ -[None done] What testing was considered but not performed or refused? (CT, X-rays, U/S, labs)? Why? @ -[None] What meds were considered but not given or refused? Why? @ -[None] Did you discuss the management of the patient with other professionals (professionals i.e. , PA, SURVEILLANCE DIRECTOR, lab, RT, psych nurse, social worker psychiatric, farm boss, teacher, chief knowledge officer, pillowcase cleaner)? Give summary @ -Discussed with attending physician Was smoking cessation discussed for >3mins.? @ -[No] Was critical care preformed (if so, how long)? @ -[No] Were there social determinants of health that impacted care today? How? (Homelessness, low income, unemployed, alcoholism, drug addiction, transportation, low edu. Level, literacy, decrease access to med. care, residential, rehab)? @ -[No] Was there de-escalation of care discussed even if they declined (Discuss DNR or withdrawal of care, Hospice)? DNR status @ -[No] What co-morbidities impacted this encounter? (DM, HTN, Smoking, COPD, CAD, Cancer, CVA, ARF, Chemo, Hep., AIDS, mental health diagnosis, sleep apnea, mo rbid obesity)? @ -[None] Was patient admitted / discharged? Hospital course, mention meds given and route, prescriptions, significant lab abnormalities, going to OR and other pertinent info. @ -Patient is a 49-year-old female with history of cervical cancer diagnosed in September 2024 presents to the ER with suprapubic abdominal pain has been going on for the past few weeks. Patient was recently discharged yesterday after new with Toradol. However patient reports that her pain got worse patient was not able to get Toradol from the pharmacy. Patient has an appointment with her SOLUTION PROFESSIONAL tomorrow for a biopsy of cervical cancer. A total of 3.5 mg Dilaudid was given in the ED. Patient is stable to be discharged recommended to follow-up with her SOLUTION PROFESSIONAL and dip painter. Undiagnosed new problem with uncertain prognosis? @ -[No] Drug Therapy requiring intensive monitoring for toxicity (Heparin, Nitro, Insulin, Cardizem)? @ -[No] Were any procedures done? @ -[No] Diagnosis/symptom? @ -Cancer related pain Acute, or Chronic, or Acute on Chronic? @ -Acute Uncomplicated (without systemic symptoms) or Complicated (systemic symptoms)? @ -Complicated Side effects of treatment? @ -[No] Exacerbation, Progression, or Severe Exacerbation? @ -[No] Poses a threat to life or bodily function? How? (Chest pain, [place], [place], pneumonia, PE, COPD, DKA, ARF, appy, cholecystitis, CVA, Diverticulitis, Homicidal, Suicidal, threat to staff... and all critical care pts) @ -[No] (Ari Glass) Disposition <Isidro Edmonds - Last Filed: 11/19/24 03:41> Is patient prescribed a controlled substance at d/c from ED?: No Time of Disposition: 04:30 <Ari Glass - Last Filed: 11/19/24 04:32> Clinical Impression: Cancer associated pain Narrative: Patient will be discharged home. (Ari Glass) Disposition: HOME SELF-CARE Condition: Stable Referrals: Josue Spain [Primary Care Provider] - 1-2 days
[2024-11-19] MEDS: HYDROmorphone 0.5 MG/0.5 ML SYRINGE IVP STA (01:12)
[2024-11-19] MEDS: KETOROLAC 15 MG/ML 1 ML VIAL IM STA (01:19)
[2024-11-19 02:00] VITALS: RESP 18
[2024-11-19] MEDS: HYDROmorphone 1 MG/ML 1 ML SYRINGE IVP STA ×2 (03:13→04:45)
[2024-11-19 05:02] VITALS: BP 128/98; PULSE 94; TEMP 98
== END 2024-11-19 04:55 | disposition home or self-care (01) ==
LOC: EC 23:37
DX: G89.3 Neoplasm related pain (acute) (chronic) (principal); C53.9 Malignant neoplasm of cervix uteri, unspecified; F17.200 Nicotine dependence, unspecified, uncomplicated
CPT/HCPCS: 99284; 96374; 96376 ×2; J1171 ×2

== ENCOUNTER → 2024-11-30 | Outpatient (CLI) | payer OTHER ==
--- NOTE | 2024-11-30 16:53 | CT ---
EXAMINATION TYPE: CT brain w con DATE OF EXAM: 11/30/2024 4:48 PM COMPARISON: None. CLINICAL INDICATION: Female, 49 years old with history of Z03.89, Headache, severe back pain. colon c umair, r/o brain mets TECHNIQUE: CT of the brain is performed utilizing 3 mm thick sections through the posterior fossa and 3 mm thick sections through the remaining calvarium. Study is performed within 24 hours of arrival to the hospital. Contrast used:80 mL of Isovue 300 with IV Contrast, (none if empty) CT DLP: 1064.3 mGycm, Automated exposure control for dose reduction was used. FINDINGS: No abnormal hyperdensity is present to suggest an acute intracranial hemorrhage. No mass lesion is evident. No enhancing lesions evident. No suspicious area to suggest vasogenic alyssa a. No acute infarcts are evident. Ventricles and sulci are appropriate for the patient age. Paranasal sinuses and mastoid air cells within the [id number]-penl are clear. IMPRESSION: 1. No acute intracranial process. Follow up MRI can be performed as clinically indicated. [facility], , 11/30/2024 4:51 PM
== END | disposition home or self-care (01) ==
LOC: RADCTMAIN 15:24
PROVIDERS: ATTEND Internal Medicine Hematology & Oncology
DX: Z03.89 Encounter for observation for other suspected diseases and conditions ruled out (principal); C53.0 Malignant neoplasm of endocervix
CPT/HCPCS: 70460; Q9967

== ENCOUNTER 2024-12-02 12:44 | Emergency (ER) | payer OTHER ==
--- NOTE | 2024-12-02 13:29 | ED ---
Abdominal Pain HPI - General Chief Complaint: Abdominal Pain Stated Complaint: vaginal bleeding Time Seen by Provider: 12/02/24 12:58 Source: patient, RN notes reviewed Mode of arrival: wheelchair Limitations: no limitations - History of Present Illness MD Complaint: abdominal pain Onset/Timin -: days(s) Location: suprapubic Radiation: none Migration to: no migration Severity scale (1-10): 9 Quality: aching Consistency: constant Associated Symptoms: dysuria - Related Data Home Medications Medication Instructions Recorded Confirmed Acetaminophen Tab [Tylenol Tab] 1,000 mg PO Q6HR PRN 10/01/24 11/01/24 Cholecalciferol (Vitamin D3) 50 mcg PO HS 10/01/24 11/01/24 [Vitamin D3 (50 Mcg = 2000 Iu)] oxyBUTYnin chloride [oxyBUTYnin 5 mg PO HS 10/01/24 11/01/24 chloride ER] Previous Rx's Medication Instructions Recorded HYDROcodone/APAP 7.5-325MG [[place] 1 tab PO Q4H PRN 3 Days #18 tab 10/28/24 7.5-325] Ibuprofen [Motrin] 800 mg PO Q8H PRN #30 tab 10/28/24 Ondansetron Odt [Zofran Odt] 4 mg PO Q8HR PRN #15 tab 10/28/24 Ketorolac [Toradol] 10 mg PO Q8HR #15 tab 11/18/24 HYDROcodone/APAP 7.5-325MG [[place] 1 tab PO Q6HR PRN 3 Days #12 tab 12/02/24 7.5-325] Megestrol [Megace] 40 mg PO BID #20 tablet 12/02/24 Allergies Allergy/AdvReac Type Severity Reaction Status Date / Time No Known Allergies Allergy Verified 12/02/24 13:09 Review of Systems ROS Statement: Those systems with pertinent positive or pertinent negative responses have been documented in the HPI. ROS Other: All systems not noted in ROS Statement are negative. Past Medical History Past Medical History: Cancer Additional Past Medical History / Comment(s): OB history: She has had 5 vaginal deliveries, one spontaneous and one elective . uterine cancer History of Any Multi-Drug Resistant Organisms: None Reported Past Surgical History: Tubal Ligation Past Anesthesia/Blood Transfusion Reactions: No Reported Reaction Past Psychological History: No Psychological Hx Reported Smoking Status: Current every day smoker Past Alcohol Use History: None Reported Past Drug Use History: None Reported, Marijuana - Past Family History Mother Family Medical History: Dementia, Myocardial Infarction (AR) General Exam Limitations: no limitations General appearance: alert, in distress (Tearful) Head exam: Present: atraumatic, normocephalic, normal inspection Eye exam: Present: normal appearance, PERRL, EOMI. Absent: scleral icterus, conjunctival injection, periorbital swelling ENT exam: Present: normal exam, mucous membranes moist Neck exam: Present: normal inspection. Absent: tenderness, meningismus, lymphadenopathy Respiratory exam: Present: normal lung sounds bilaterally. Absent: respiratory distress, wheezes, rales, rhonchi, stridor Cardiovascular Exam: Present: regular rate, normal rhythm, normal heart sounds. Absent: systolic murmur, diastolic murmur, rubs, gallop, clicks GI/Abdominal exam: Present: soft, tenderness (Diffuse abdominal tenderness with voluntary guarding), guarding, rebound, normal bowel sounds. Absent: distended, rigid Extremities exam: Present: normal inspection, full ROM, normal capillary refill. Absent: tenderness, pedal edema, joint swelling, calf tenderness Back exam: Present: tenderness, CVA tenderness (R), CVA tenderness (L). Absent: vertebral tenderness Neurological exam: Present: alert, oriented X3, CN II-XII intact Psychiatric exam: Present: normal affect, normal mood Skin exam: Present: warm, dry, intact, normal color. Absent: rash Course Vital Signs 12/02/24 12/02/24 12/02/24 13:05 13:57 14:49 Temperature 98.9 F Pulse Rate 119 H 75 112 H Respiratory 22 20 20 Rate Blood Pressure 113/75 135/68 132/80 O2 Sat by Pulse 98 98 98 Oximetry Medical Decision Making - Medical Decision Making Was pt. sent in by a medical professional or institution (, PA, AIR HAMMER STRIPPER, urgent care, hospital, or assisted...) When possible be specific @ -[No] Did you speak to anyone other than the patient for history (EMS, parent, family, police, friend...)? What history was obtained from this source @ -[No] Did you review nursing and triage notes (agree or disagree)? Why? @ -[I reviewed and agree with nursing and triage notes] Were old charts reviewed (outside hosp., previous admission, EMS record, old EKG, old radiological studies, urgent care reports/EKG's, assisted records)? Report findings @ -[No old charts were reviewed] Differential Diagnosis (chest pain, altered mental status, abdominal pain women, abdominal pain men, vaginal bleeding, weakness, fever, dyspnea, syncope, headache, dizziness, GI bleed, back pain, seizure, CVA, palpatations, mental health, musculoskeletal)? @ -Differential Abdominal Pain Women: Appendicitis, Cholecystitis, diverticulosis, ischemic bowel, pancreatitis, hepatitis, UTI, gastroenteritis, AAA, incarcerated hernia, bowel obstruction, constipation, inflammatory bowel, hepatitis, peptic ulcer disease, splenic infarction, perforated viscus, vulvitis, ovarian torsion, PID, kidney stone, placenta abruption, this is not meant to be an all-inclusive list Differential Vaginal Bleeding: Spontaneous , threatened , molar , ectopic , b loody show, incompetent cervix, abruptioplacenta, placenta previa, uterine rupture, dysfunctional uterine bleeding, hemorrhage, uterine fibroids, this is not meant to be an all-inclusive list. EKG interpreted by me (3pts min.). @ -Not done X-rays interpreted by me (1pt min.). @ -[None done] CT interpreted by me (1pt min.). @ -[None done] U/S interpreted by me (1pt. min.). @ -[None done] What testing was considered but not performed or refused? (CT, X-rays, U/S, labs)? Why? @ -[None] What meds were considered but not given or refused? Why? @ -[None] Did you discuss the management of the patient with other professionals (professionals i.e. , PA, AIR HAMMER STRIPPER, lab, RT, psych nurse, social work msw, pumper gauger, teacher, customs and border protection officer, caseworker)? Give summary @ -[No] Was smoking cessation discussed for >3mins.? @ -[No] Was critical care preformed (if so, how long)? @ -[No] Were there social determinants of health that impacted care today? How? (Homelessness, low income, unemployed, alcoholism, drug addiction, transportation, low edu. Level, literacy, decrease access to med. care, [facility], rehab)? @ -[No] Was there de-escalation of care discussed even if they declined (Discuss DNR or withdrawal of care, Hospice)? DNR status @ -[No] What co-morbidities impacted this encounter? (DM, HTN, Smoking, COPD, CAD, Cancer, CVA, ARF, Chemo, Hep., AIDS, mental health diagnosis, sleep apnea, mor bid obesity)? @ -Uterine CA Was patient admitted / discharged? Hospital course, mention meds given and route, prescriptions, significant lab abnormalities, going to OR and other pertinent info. @ -[hospital course] Undiagnosed new problem with uncertain prognosis? @ -[No] Drug Therapy requiring intensive monitoring for toxicity (Heparin, Nitro, Insulin, Cardizem)? @ -[No] Were any procedures done? @ -[No] Diagnosis/symptom? @ -[default] Acute, or Chronic, or Acute on Chronic? @ -Acute Uncomplicated (without systemic symptoms) or Complicated (systemic symptoms)? @ -Complicated Side effects of treatment? @ -[No] Exacerbation, Progression, or Severe Exacerbation? @ -[No] Poses a threat to life or bodily function? How? (Chest pain, USA, AR, pneumonia, PE, COPD, DKA, ARF, appy, cholecystitis, CVA, Diverticulitis, Homicidal, Suicidal, threat to staff... and all critical care pts) @ -[No] - Lab Data Result diagrams: 12/02/24 13:49 12/02/24 13:49 Lab Results 12/02/24 12/02/24 12/02/24 Range/Units 13:49 13:49 13:49 WBC 11.2 H (3.8-10.6) k/uL RBC 4.35 (3.80-5.40) m/uL Hgb 12.9 (11.4-16.0) gm/dL Hct 41.8 (34.0-46.0) % MCV 96.3 (80.0-100.0) fL MCH 29.8 (25.0-35.0) pg MCHC 30.9 L (31.0-37.0) g/dL RDW 13.9 (11.5-15.5) % Plt Count 497 H (150-450) k/uL MPV 7.7 Neutrophils % 76 % Lymphocytes % 14 % Monocytes % 6 % Eosinophils % 2 % Basophils % 0 % Neutrophils # 8.4 H (1.3-7.7) k/uL Lymphocytes # 1.6 (1.0-4.8) k/uL Monocytes # 0.7 (0-1.0) k/uL Eosinophils # 0.2 (0-0.7) k/uL Basophils # 0.0 (0-0.2) k/uL Sodium 136 L (137-145) mmol/L Potassium 4.7 (3.5-5.1) mmol/L Chloride 98 (98-107) mmol/L Carbon Dioxide 29 (22-30) mmol/L Anion Gap 9 mmol/L BUN 8 (7-17) mg/dL Creatinine 0.47 L (0.52-1.04) mg/dL Est GFR (CKD-EPI)AfAm >90 (>60 ml/min/1.73 sqM) Est GFR (CKD-EPI)NonAf >90 (>60 ml/min/1.73 sqM) Glucose 113 H (74-99) mg/dL Plasma Lactic Acid Johnathon (0.7-2.0) mmol/L Calcium 11.0 H (8.4-10.2) mg/dL Total Bilirubin 0.7 (0.2-1.3) mg/dL AST 38 H (14-36) U/L ALT 17 (4-34) U/L Alkaline Phosphatase 101 (38-126) U/L Total Protein 7.3 (6.3-8.2) g/dL Albumin 4.0 (3.5-5.0) g/dL Lipase 90 (23-300) U/L Urine Color Dark Red Urine Appearance Bloody H (Clear) Urine pH Not Reportable Ur Specific [place] Not Reportable Urine Protein Not Reportable Ur Protein Confirm Not Reportable Urine Glucose (UA) Not Reportable Urine Ketones Not Reportable Urine Blood Not Reportable Urine Nitrite Not Reportable Urine Bilirubin Not Reportable Ur Bilirubin Confirm Not Reportable Urine Urobilinogen Not Reportable Ur Leukocyte Esterase Not Reportable Urine RBC >182 H (0-5) /hpf Urine WBC >182 H (0-5) /hpf 12/02/24 Range/Units 13:49 WBC (3.8-10.6) k/uL RBC (3.80-5.40) m/uL Hgb (11.4-16.0) gm/dL Hct (34.0-46.0) % MCV (80.0-100.0) fL MCH (25.0-35.0) pg MCHC (31.0-37.0) g/dL RDW (11.5-15.5) % Plt Count (150-450) k/uL MPV Neutrophils % % Lymphocytes % % Monocytes % % Eosinophils % % Basophils % % Neutrophils # (1.3-7.7) k/uL Lymphocytes # (1.0-4.8) k/uL Monocytes # (0-1.0) k/uL Eosinophils # (0-0.7) k/uL Basophils # (0-0.2) k/uL Sodium (137-145) mmol/L Potassium (3.5-5.1) mmol/L Chloride (98-107) mmol/L Carbon Dioxide (22-30) mmol/L Anion Gap mmol/L BUN (7-17) mg/dL Creatinine (0.52-1.04) mg/dL Est GFR (CKD-EPI)AfAm (>60 ml/min/1.73 sqM) Est GFR (CKD-EPI)NonAf (>60 ml/min/1.73 sqM) Glucose (74-99) mg/dL Plasma Lactic Acid [place] 2.0 (0.7-2.0) mmol/L Calcium (8.4-10.2) mg/dL Total Bilirubin (0.2-1.3) mg/dL AST (14-36) U/L ALT (4-34) U/L Alkaline Phosphatase (38-126) U/L Total Protein (6.3-8.2) g/dL Albumin (3.5-5.0) g/dL Lipase (23-300) U/L Urine Color Urine Appearance (Clear) Urine pH Ur Specific [place] Urine Protein Ur Protein Confirm Urine Glucose (UA) Urine Ketones Urine Blood Urine Nitrite Urine Bilirubin Ur Bilirubin Confirm Urine Urobilinogen Ur Leukocyte Esterase Urine RBC (0-5) /hpf Urine WBC (0-5) /hpf Disposition Clinical Impression: Cancer associated pain, Metrorrhagia Additional Instructions: Follow-up with oncology/OB oncology as soon as possible for ongoing management of condition. Take 1 [place] tablet 6 hours as needed following morphine dose, for any breakthrough pain. Prescriptions: Megestrol [Megace] 40 mg PO BID #20 tablet HYDROcodone/APAP 7.5-325MG [[place] 7.5-325] 1 tab PO Q6HR PRN 3 Days #12 tab PRN Reason: Pain Is patient prescribed a controlled substance at d/c from ED?: Yes When asked, does pt state using other controlled substances?: Yes If prescribed controlled substance>3 days was MAPS reviewed?: Prescribed <3 Days If opioid is for acute pain is fill amount 7 days or less?: Yes Referrals: Asim Simon [STAFF PHYSICIAN] - 1-2 days Josue Spain [Primary Care Provider] - 1-2 days Katie Kellogg DO [Doctor of Osteopathic Medicine] - 1-2 days Time of Disposition: 15:55
[2024-12-02] MEDS: HYDROmorphone 1 MG/ML 1 ML SYRINGE IVP STA ×2 (13:45→15:15)
[2024-12-02] MEDS: SODIUM CHLORIDE 0.9% 1,000 ML IV ONE (13:49)
[2024-12-02 13:58] VITALS: RESP 20
[2024-12-02 13:59] LABS: Basophils % (A) 0 %; Eosinophils # (A) 0.2 k/uL (0-0.7); Eosinophils % (A) 2 %; HCT 41.8 % (34.0-46.0); HGB 12.9 gm/dL (11.4-16.0); Lymphocytes # (A) 1.6 k/uL (1.0-4.8); Lymphocytes % (A) 14 %; MCH 29.8 pg (25.0-35.0); MCHC 30.9 g/dL (31.0-37.0); MCV 96.3 fL (80.0-100.0); Mean Platelet Volume 7.7; Monocytes # (A) 0.7 k/uL (0-1.0); Monocytes % (A) 6 %; Neutrophils # (A) 8.4 k/uL (1.3-7.7); Neutrophils % (A) 76 %; Platelet Count 497 k/uL (150-450); RBC 4.35 m/uL (3.80-5.40); RDW 13.9 % (11.5-15.5); WBC 11.2 k/uL (3.8-10.6)
[2024-12-02 14:17] LABS: ALT 17 U/L (4-34); AST 38 U/L (14-36); African American GFR (CKD) >90 (>60 ml/min/1.73 sqM); Alkaline Phosphatase 101 U/L (38-126); Anion Gap 9 mmol/L; Blood Urea Nitrogen 8 mg/dL (7-17); Carbon Dioxide 29 mmol/L (22-30); Chloride 98 mmol/L (98-107); Glucose 113 mg/dL (74-99); Lipase 90 U/L (23-300); Non-African American GFR(CKD) >90 (>60 ml/min/1.73 sqM); Potassium 4.7 mmol/L (3.5-5.1); Sodium 136 mmol/L (137-145); Total Bilirubin 0.7 mg/dL (0.2-1.3); Total Protein 7.3 g/dL (6.3-8.2)
[2024-12-02 14:39] LABS: RBC,Urine >182 /hpf (0-5); WBC,Urine >182 /hpf (0-5)
--- NOTE | 2024-12-02 14:52 | US ---
EXAMINATION TYPE: US pelvic complete DATE OF EXAM: 12/02/2024 COMPARISON: 10/28/2024 CLINICAL INDICATION: Female, 49 years old with history of Lower abdominal pain, metrorrhagia; Clots w ith whole pelvic/back pain TECHNIQUE: Transabdominal (TA). Transabdominal grayscale sonographic images of the pelvis were acquired. Transvaginal sonographic im ages were not medically necessary Doppler imaging: Color Doppler Images were obtained. Spectral doppler images were obtained. FINDINGS: Date of LMP: Unknown EXAM MEASUREMENTS: Uterus: 12.4 x 4.7 x 6.4 cm Endometrial Stripe: 0.45 cm Right Ovary: 4.2 x 3.1 x 4.9 cm Left Ovary: 4.2 x 3.4 x 2.6 cm 1. Uterus: Anteverted Heterogenous mass within the left fundus portion of the uterus measures 2.3 x 1.9 x 2.9 cm Circumscribed heterogeneously hypoechoic lesion in the cervix measuring 4.4 x 3.8 x 3.8 cm 2. Endometrium: Fluid distended and lesion within measuring 2.1 x 2.9 x 1.7 cm. 3. Right Ovary: Preserved color Doppler flow. 4. Left Ovary: Preserved color Doppler flow. Spectral, color and waveform doppler imaging shows good arterial and venous flow within the ovaries ; there is no evidence for ovarian torsion. 5. Bilateral Adnexa: wnl 6. Posterior cul-de-sac: wnl IMPRESSION: 1. No convincing sonographic evidence of ovarian torsion. 2. Heterogeneous uterine echotexture with left uterine fundal fibroid measuring 2.9 cm. 3. Fluid distended endometrial canal and additional circumscribed hypoechoic lesion possibly reflect ing fibroid with submucosal component. 4. Additional indeterminant heterogeneous circumscribed hypoechoic lesion involving the cervix measu ring 4.4 cm. This finding also could reflect fibroid changes, however, given fluid distention of the endometrial canal, further evaluation with either direct visualization or outpatient pelvic MRI utili zing IV contrast would be recommended. [facility], , 12/02/2024 2:50 PM
[2024-12-02 15:00] LABS: Appearance,Urine Bloody (Clear); Color,Urine Dark Red
[2024-12-02 16:27] VITALS: BP 132/89; PULSE 89; TEMP 98.8
== END 2024-12-02 16:26 | disposition home or self-care (01) ==
LOC: EC 12:44
DX: N92.1 Excessive and frequent menstruation with irregular cycle (principal); G89.3 Neoplasm related pain (acute) (chronic); F17.200 Nicotine dependence, unspecified, uncomplicated
CPT/HCPCS: 36415; 80053; 83605; 83690; 85025; 81001; 87086; 93975; 76856; 99284; 96374; 96376; 96361; J1171

== ENCOUNTER → 2024-12-07 | Outpatient (CLI) | payer OTHER ==
[~2024-12-07] MED LIST changes: -DEXAMETHASONE SOD PHOSPHATE 10 MG/ML 1 ML VIAL IV ONE; -LACTATED RINGERS 1,000 ML IV SCH; -LIDOCAINE 1% 20 ML VIAL (10MG/ML) FOR IV START INTRADERMA PRN; -MIDAZOLAM 2 MG/2 ML VIAL IV PRN; -ONDANSETRON 4 MG/2 ML VIAL IVP ONE; -Pre Op ABX Message 1 EACH MISC MISCELLANE ONE; -SCOPOLAMINE 1.5MG/72HR PATCH TRANSDERM ONE; +SODIUM CHLORIDE 0.9% 250 ML in EMPTY BAG 1 BAG IV PRN
[2024-12-07 10:53] VITALS: BP 142/86; PULSE 93; RESP 16; TEMP 98.7
[2024-12-07] MEDS: DESMOPRESSIN ACETATE 18 MCG in SODIUM CHLORIDE 0.9% 50 ML IVPB NR (11:05)
[2024-12-07] MEDS: SODIUM CHLORIDE 0.9% 500 ML 500 ML in EMPTY BAG 1 BAG IV PRN (11:05)
== END ==
LOC: PROCWHC3 10:25
PROVIDERS: ATTEND Internal Medicine Hematology & Oncology
DX: N93.8 Other specified abnormal uterine and vaginal bleeding (principal)
CPT/HCPCS: 96365; J2597

== ENCOUNTER 2025-02-03 19:31 | Inpatient (IN) | payer OTHER ==
--- NOTE | 2025-02-03 21:05 | ED ---
Back Pain HPI - General Chief Complaint: Back Pain/Injury Stated Complaint: back/low abd pain, pain deep breath Time Seen by Provider: 02/03/25 20:45 Source: patient, RN notes reviewed, old records reviewed Limitations: no limitations - History of Present Illness Initial Comments: This is a 49 female to ER with back pain this patient presents with significant and severe back pain underlying history of ovarian cancer uterine cancer, patient has severe back pain pain in her chest pain in her chest when she takes a deep breath. Patient states she is on Eliquis no history of blood clots MD Complaint: back pain, other (Chest pain especially with a deep breath) -: days(s) Similar Symptoms Previously: Yes Place: home Radiation: none Severity: severe Severity scale (1-10): 9 Quality: sharp Consistency: constant Improves With: none Worsens With: none Context: other (History of cancer) Associated Symptoms: denies other symptoms Treatments Prior to Arrival: other - Related Data Home Medications Medication Instructions Recorded Confirmed Multivitamins, Thera [Multivitamin 1 tab PO DAILY 12/31/24 02/04/25 (formulary)] Ondansetron [Zofran] 4 mg PO Q6H PRN 12/31/24 02/04/25 oxyCODONE-APAP 10-325MG [Percocet 1 tab PO Q4H 02/04/25 02/04/25 10-325 mg] Previous Rx's Medication Instructions Recorded Apixaban [Eliquis] 5 mg PO BID #60 tab 01/23/25 Docusate [Colace] 100 mg PO BID #60 cap 01/23/25 Megestrol [Megace] 40 mg PO BID #60 tab 01/23/25 Pantoprazole Sodium [Protonix] 20 mg PO DAILY #30 tab 01/23/25 Celecoxib 200 mg PO BID PRN #30 cap 02/07/25 DULoxetine HCL [Cymbalta] 20 mg PO DAILY #30 cap 02/07/25 Folic Acid 1 mg PO DAILY #0 tab 02/07/25 Lidocaine 4% Patch 1 patch TOPICAL Q24H #30 patch 02/07/25 fentaNYL 100MCG/HR PATCH 1 patch TRANSDERM Q72H #10 patch 02/07/25 [Duragesic 100MCG/HR] predniSONE See Taper PO DAILY #30 tab 02/07/25 Allergies Allergy/AdvReac Type Severity Reaction Status Date / Time strawberry Allergy Unknown Verified 02/04/25 11:53 Review of Systems ROS Statement: Those systems with pertinent positive or pertinent negative responses have been documented in the HPI. ROS Other: All systems not noted in ROS Statement are negative. Past Medical History Past Medical History: Cancer Additional Past Medical History / Comment(s): OB history: She has had 5 vaginal deliveries, one spontaneous and one elective . uterine cancer. BLEEDING-GIVEN DDAVP. History of Any Multi-Drug Resistant Organisms: None Reported Past Surgical History: Tubal Ligation Past Anesthesia/Blood Transfusion Reactions: No Reported Reaction Past Psychological History: No Psychological Hx Reported Smoking Status: Former smoker Past Alcohol Use History: None Reported Past Drug Use History: None Reported - Past Family History Mother Family Medical History: Dementia, Myocardial Infarction ([place]) General Exam Limitations: no limitations General appearance: alert, in no apparent distress Head exam: Present: atraumatic, normocephalic, normal inspection Eye exam: Present: normal appearance, PERRL, EOMI. Absent: scleral icterus, conjunctival injection, periorbital swelling ENT exam: Present: normal exam, mucous membranes moist Neck exam: Present: normal inspection. Absent: tenderness, meningismus, lymphadenopathy Respiratory exam: Present: normal lung sounds bilaterally. Absent: respiratory distress, wheezes, rales, rhonchi, stridor Cardiovascular Exam: Present: regular rate, normal rhythm, normal heart sounds. Absent: systolic murmur, diastolic murmur, rubs, gallop, clicks GI/Abdominal exam: Present: soft, normal bowel sounds. Absent: distended, tenderness, guarding, rebound, rigid Extremities exam: Present: normal inspection, full ROM, normal capillary refill. Absent: tenderness, pedal edema, joint swelling, calf tenderness Back exam: Present: normal inspection Neurological exam: Present: alert, oriented X3, CN II-XII intact Psychiatric exam: Present: normal affect, normal mood Skin exam: Present: warm, dry, intact, normal color. Absent: rash Course Vital Signs 02/03/25 02/03/25 02/03/25 20:38 21:40 23:37 Temperature 98.1 F Pulse Rate 75 84 87 Respiratory 20 16 18 Rate Blood Pressure 141/98 144/88 123/80 O2 Sat by Pulse 99 98 98 Oximetry 02/04/25 02/04/2502/04/25 00:08 00:18 00:21 Temperature Pulse Rate 75 78 Respiratory 16 Rate Blood Pressure O2 Sat by Pulse Oximetry 02/04/25 00:51 Temperature Pulse Rate 100 Respiratory 18 Rate Blood Pressure 120/72 O2 Sat by Pulse 97 Oximetry - Reevaluation(s) Reevaluation #1: 02/03/25 21:30 Medical records reviewed Reevaluation #2: 02/03/25 23:59 Pain is difficult to control here in the ER Reevaluation #3: 02/03/25 23:59 Patient informed of results and questions answered Reevaluation #4: Was pt. sent in by a medical professional or institution (, ANJALI, CALL OR CONTACT CENTRE MANAGER, urgent care, hospital, or shelter...) When possible be specific @ -no Did you speak to anyone other than the patient for history (EMS, parent, family, police, friend...)? What history was obtained from this source @ -no Did you review nursing and triage notes (agree or disagree)? Why? @ -agree Are old charts reviewed (outside hosp., previous admission, EMS record, old EKG, old radiological studies, urgent care reports/EKG's, shelter records)? Report findings @ -yes Differential Diagnosis (chest pain, altered mental status, abdominal pain women, abdominal pain men, vaginal bleeding, weakness, fever, dyspnea, syncope, headache, dizziness, GI bleed, back pain, seizure, CVA, palpatations, mental health, musculoskeletal)? @ -prior EKG interpreted by me (3pts min.). @ -yes X-rays interpreted by me (1pt min.). @ -no CT interpreted by me (1pt min.). @ -yes negative for acute disease U/S interpreted by me (1pt. min.). @ -no What testing was considered but not performed or refused? (CT, X-rays, U/S, labs)? Why? @ -none What meds were considered but not given or refused? Why? @ -none Did you discuss the management of the patient with other professionals (professionals i.e. ANJALI Bryant, CALL OR CONTACT CENTRE MANAGER, lab, RT, psych nurse, social science instructor, camera assembler, teacher, special forces officer, caseworker)? Give summary @ -no Was smoking cessation discussed for >3mins.? @ -no Was critical care preformed (if so, how long)? @ -no Were there social determinants of health that impacted care today? How? (Homelessness, low income, unemployed, alcoholism, drug addiction, transportation, low edu. Level, literacy, decrease access to med. care, penitentiary, rehab)? @ -none Was there de-escalation of care discussed even if they declined (Discuss DNR or withdrawal of care, Hospice)? DNR status @ -no What co-morbidities impacted this encounter? (DM, HTN, Smoking, COPD, CAD, Cancer, CVA, ARF, Chemo, Hep., AIDS, mental health diagnosis, sleep apnea, morbid obesity)? @ -none Was patient admitted / discharged? Hospital course, mention meds given and route, prescriptions, significant lab abnormalities, going to OR and other pertinent info. @ - 49 female with known pelvic mass will be admitted for uncontrolled pain uncontrolled cancer related pain. CT scanning is negative patient will be admitted for pain control Admitted Undiagnosed new problem with uncertain prognosis? @ -no Drug Therapy requiring intensive monitoring for toxicity (Heparin, Nitro, Insulin, Cardizem)? @ -no Were any procedures done? @ -no Diagnosis/symptom? @ -Cancer pain Acute, or Chronic, or Acute on Chronic? @ -Acute Uncomplicated (without systemic symptoms) or Complicated (systemic symptoms)? @ -Complicated Side effects of treatment? @ -no Exacerbation, Progression, or Severe Exacerbation? @ -exacerbation Poses a threat to life or bodily function? How? (Chest pain, [place], [place], pneumonia, PE, COPD, DKA, ARF, appy, cholecystitis, CVA, Diverticulitis, Homicidal, Suicidal, threat to staff... and all critical care pts) @ -no Reevaluation #5: Differential Back Pain: Strain, zoster, cauda equina syndrome, epidural abscess, vertebral osteomyelitis, discitis, fracture, subluxation, disc herniation, DJD, spinal stenosis, dissection, AAA, pancreatitis, peptic ulcer disease, pyelonephritis, kidney stone, this is not meant to be an all-inclusive list. Medical Decision Making - Medical Decision Making 49 female with known pelvic mass will be admitted for uncontrolled pain uncontrolled cancer related pain. CT scanning is negative patient will be admitted for pain control - Lab Data Result diagrams: 02/06/25 06:08 02/05/25 06:14 Lab Results 02/03/25 02/03/25 02/03/25 Range/Units 23:00 23:22 23:22 WBC 5.76 (4.50-10.00) 10*3/uL RBC 3.84 L (4.10-5.20) 10*6/uL Hgb 12.4 (12.0-15.0) g/dL Hct 38.3 (37.2-46.3) % MCV 99.7 H D (80.0-97.0) fL MCH 32.3 H (27.0-32.0) pg MCHC 32.4 (32.0-37.0) g/dL Plt Count 290 (140-440) 10*3/uL MPV 10.5 (9.5-12.2) fL Immature Gran % (Auto) 0.2 % Neutrophils % 67.7 % Lymphocytes % 18.6 % Monocytes % 9.9 % Eosinophils % 3.1 % Basophils % 0.5 % Immature Gran # 0.01 (0.00-0.04) 10*3/uL Neutrophils # 3.90 (1.80-7.70) 10*3/uL Lymphocytes # 1.07 (0.90-5.00) 10*3/uL Monocytes # 0.57 (0.20-1.00) 10*3/uL Eosinophils # 0.18 (0.04-0.35) 10*3/uL Basophils # 0.03 (0.00-0.10) 10*3/uL PT 12.0 (10.0-12.5) sec INR 1.1 (<1.2) APTT 22.8 (22.0-30.0) sec D-Dimer 0.39 (<0.60) mg/L FEU Sodium 136 L (137-145) mmol/L Potassium 3.9 (3.5-5.1) mmol/L Chloride 104 (98-107) mmol/L Carbon Dioxide 21 L (22-30) mmol/L Anion Gap 11 mmol/L BUN 6 L (7-17) mg/dL Creatinine 0.48 L (0.52-1.04) mg/dL Est GFR (CKD-EPI)AfAm >90 (>60 ml/min/1.73 sqM) Est GFR (CKD-EPI)NonAf >90 (>60 ml/min/1.73 sqM) Glucose 82 (74-99) mg/dL Plasma Lactic Acid Johnathon (0.7-2.0) mmol/L Calcium 10.2 (8.4-10.2) mg/dL Phosphorus 3.7 (2.5-4.5) mg/dL Magnesium 1.7 (1.6-2.3) mg/dL Total Bilirubin 0.5 (0.2-1.3) mg/dL AST 56 H (14-36) U/L ALT 61 H (4-34) U/L Alkaline Phosphatase 287 H (38-126) U/L NT-Pro-B Natriuret Pep 64 pg/mL Total Protein 6.0 L (6.3-8.2) g/dL Albumin 3.1 L (3.5-5.0) g/dL 02/03/25 Range/Units 23:22 WBC (4.50-10.00) 10*3/uL RBC (4.10-5.20) 10*6/uL Hgb (12.0-15.0) g/dL Hct (37.2-46.3) % MCV (80.0-97.0) fL MCH (27.0-32.0) pg MCHC (32.0-37.0) g/dL Plt Count (140-440) 10*3/uL MPV (9.5-12.2) fL Immature Gran % (Auto) % Neutrophils % % Lymphocytes % % Monocytes % % Eosinophils % % Basophils % % Immature Gran # (0.00-0.04) 10*3/uL Neutrophils # (1.80-7.70) 10*3/uL Lymphocytes # (0.90-5.00) 10*3/uL Monocytes # (0.20-1.00) 10*3/uL Eosinophils # (0.04-0.35) 10*3/uL Basophils # (0.00-0.10) 10*3/uL PT (10.0-12.5) sec INR (<1.2) APTT (22.0-30.0) sec D-Dimer (<0.60) mg/L FEU Sodium (137-145) mmol/L Potassium (3.5-5.1) mmol/L Chloride (98-107) mmol/L Carbon Dioxide (22-30) mmol/L Anion Gap mmol/L BUN (7-17) mg/dL Creatinine (0.52-1.04) mg/dL Est GFR (CKD-EPI)AfAm (>60 ml/min/1.73 sqM) Est GFR (CKD-EPI)NonAf (>60 ml/min/1.73 sqM) Glucose (74-99) mg/dL Plasma Lactic Acid Johnathon 1.9 (0.7-2.0) mmol/L Calcium (8.4-10.2) mg/dL Phosphorus (2.5-4.5) mg/dL Magnesium (1.6-2.3) mg/dL Total Bilirubin (0.2-1.3) mg/dL AST (14-36) U/L ALT (4-34) U/L Alkaline Phosphatase (38-126) U/L NT-Pro-B Natriuret Pep pg/mL Total Protein (6.3-8.2) g/dL Albumin (3.5-5.0) g/dL - EKG Data -: EKG Interpreted by Me (EKG is sinus 85 AR 147 QRS 77 QTc 398) - Radiology Data Radiology results: report reviewed (CT angio CT abdomen pelvis negative for a cute disease), image reviewed Disposition Clinical Impression: Thoracic back pain, Mid back pain, Pelvic mass, Pelvic pain, Cancer associated pain Disposition: ADMITTED IP TO THIS [facility] Condition: Stable Is patient prescribed a controlled substance at d/c from ED?: No Time of Disposition: 23:55
[2025-02-03] MEDS: SODIUM CHLORIDE 0.9% 1,000 ML IV ONE (21:34)
[2025-02-03] MEDS: HYDROmorphone 1 MG/ML 1 ML SYRINGE IVP STA ×2 (21:36→23:34)
[2025-02-03] MEDS: ONDANSETRON 4 MG/2 ML VIAL IVP STA (21:36)
--- NOTE | 2025-02-03 23:25 | CT ---
EXAMINATION TYPE: CT angio chest DATE OF EXAM: 02/03/2025 COMPARISON: Emergency 2024 CLINICAL INDICATION: Female, 49 years old with history of pain, Pt complaining of severe lower back p ain that radiates to her flanks and to her lower ABD. This has been persistant for a week. Pt has Hx lower pelvic area CA. Pt also states that it increase the pain when she breathes in deep., TECHNIQUE: CTA scan of the thorax is performed with IV Contrast, patient injected with 100ml mL of Isovue 370, p ulmonary embolism protocol. MIP Images are created on CT scanner and reviewed. CT DLP: 194.4 mGycm. Automated Exposure Control for Dose Reduction was Utilized. FINDINGS: LUNGS: [id number] underlying emphysematous change greatest in the upper lungs is Redemonstrated . Scattered small bilateral pulmonary nodules are again seen. There is stable 8 mm superior medial le ft lower lobe pulmonary nodule image 89 for reference. There is grossly stable 7-8 millimeter left lo wer lobe pulmonary nodule anteriorly axial image 112. HEART: Size within normal limits. No significant coronary artery calcifications. MEDIASTINUM: There is satisfactory enhancement of the pulmonary artery and its branches, there is no CT evidence for pulmonary embolism. There are prominent and slightly enlarged bilateral hilar and me diastinal lymph nodes now identified. No pericardial effusion. OTHER: There is a 1.7 cm hypodense right thyroid nodule on image 33. Please refer to same day CT abdo men and pelvis for complete details on the upper abdomen IMPRESSION: 1. No CT evidence for acute pulmonary embolism. 2. Mild emphysematous changes without acute pulmonary process. Scattered small bilateral pulmonary no dules redemonstrated and stable. Metastatic disease not excluded. 3. There is 1.7 cm right thyroid nodule. If this is not a known finding follow-up thyroid ultrasound is advised to further evaluate. [facility], , 02/03/2025 11:23 PM
--- NOTE | 2025-02-03 23:31 | CT ---
EXAMINATION TYPE: CT abdomen pelvis w con DATE OF EXAM: 02/03/2025 COMPARISON: CT abdomen and pelvis January 22, 2025 CLINICAL INDICATION: Female, 49 years old with history of pain, Pt complaining of severe lower back p ain that radiates to her flanks and to her lower ABD. This has been persistant for a week. Pt has Hx lower pelvic area CA. Pt also states that it increase the pain when she breathes in deep., TECHNIQUE: CT scan of the abdomen and pelvis is performed with IV Contrast, patient injected with 100ml mL of Is ovue 370., (none if empty) Oral contrast used: without Oral Contrast (none if empty) CT DLP: 396.7 mGycm, Automated exposure control for dose reduction was used. FINDINGS: LUNG BASES: Please refer to same day CTA chest report for complete details on the lung bases. LIVER/GB: No significant abnormality is appreciated. PANCREAS: No significant abnormality is seen. SPLEEN: No significant abnormality is seen. ADRENALS: No significant abnormality is seen. KIDNEYS: No significant abnormality is seen. BOWEL: No significant abnormality is seen. UTERUS/ADNEXA: Stable nonspecific circumscribed 3.3 cm eccentric mass in the uterus axial image 57. M alignancy not excluded. Likely symmetric normal-size ovaries axial image 61. Tubal ligation clips pel vis are demonstrated. LYMPH NODES: Persistent abnormal lymph nodes in the retroperitoneum of the abdomen. Confluent adenop athy axial image 35 is noted. This causes mass effect in the abdominal aorta and IVC. This measures 5 .9 x 2.9 cm image 35. Malignancy suspected. OSSEOUS STRUCTURES: Mild disc space narrowing at L5-S1 level. OTHER: No significant additional abnormality is seen. IMPRESSION: No suspicious new/acute findings to account for patient's symptoms. [facility], , 02/03/2025 11:29 PM
[2025-02-03] MEDS: SODIUM CHLORIDE 0.9% 1,000 ML IV SCH (23:32)
[2025-02-03] MEDS: methylPREDNISolone SOD SUCCI 125 MG/2 ML VIAL IV STA (23:33)
[2025-02-03] MEDS: KETOROLAC 15 MG/ML 1 ML VIAL IVP STA (23:34)
[2025-02-03] MEDS ORDERED: ONDANSETRON 4 MG/2 ML VIAL IVP PRN (23:56)
[2025-02-03] MEDS ORDERED: NALOXONE 0.4 MG/ML 1 ML VIAL IV PRN (23:56)
[2025-02-04 00:01] LABS: Basophils # (A) 0.03 10*3/uL (0.00-0.10); Basophils % (A) 0.5 %; Eosinophils # (A) 0.18 10*3/uL (0.04-0.35); Eosinophils % (A) 3.1 %; HCT 38.3 % (37.2-46.3); HGB 12.4 g/dL (12.0-15.0); Lymphocytes # (A) 1.07 10*3/uL (0.90-5.00); Lymphocytes % (A) 18.6 %; MCH 32.3 pg (27.0-32.0); MCHC 32.4 g/dL (32.0-37.0); Mean Platelet Volume 10.5 fL (9.5-12.2); Monocytes # (A) 0.57 10*3/uL (0.20-1.00); Monocytes % (A) 9.9 %; Neutrophils % (A) 67.7 %; Platelet Count 290 10*3/uL (140-440); RBC 3.84 10*6/uL (4.10-5.20); RDW 18.5 % (11.5-14.5); WBC 5.76 10*3/uL (4.50-10.00)
[2025-02-04 00:02] LABS: MCV 99.7 fL (80.0-97.0)
[2025-02-04] MEDS: IPRATROPIUM-ALBUTEROL 3 ML NEB INHALATION STA (00:08)
[2025-02-04 00:33] LABS: INR 1.1 (<1.2); Partial Thromboplastin Time 22.8 sec (22.0-30.0)
[2025-02-04 00:55] LABS: ALT 61 U/L (4-34); AST 56 U/L (14-36); African American GFR (CKD) >90 (>60 ml/min/1.73 sqM); Albumin 3.1 g/dL (3.5-5.0); Alkaline Phosphatase 287 U/L (38-126); Anion Gap 11 mmol/L; Blood Urea Nitrogen 6 mg/dL (7-17); Calcium 10.2 mg/dL (8.4-10.2); Carbon Dioxide 21 mmol/L (22-30); Chloride 104 mmol/L (98-107); Glucose 82 mg/dL (74-99); Magnesium 1.7 mg/dL (1.6-2.3); Non-African American GFR(CKD) >90 (>60 ml/min/1.73 sqM); Phosphorus 3.7 mg/dL (2.5-4.5); Potassium 3.9 mmol/L (3.5-5.1); Sodium 136 mmol/L (137-145); Total Bilirubin 0.5 mg/dL (0.2-1.3)
[2025-02-04 01:15] LABS: NT-Pro-B-Type Natriuretic Pept 64 pg/mL
[2025-02-04] MEDS: HYDROmorphone 1 MG/ML 1 ML SYRINGE IVP PRN (02:20)
[2025-02-04] MEDS: KETOROLAC 15 MG/ML 1 ML VIAL IVP PRN (03:01)
[2025-02-04 06:21] LABS: Basophils # (A) 0.01 10*3/uL (0.00-0.10); Basophils % (A) 0.3 %; HCT 34.4 % (37.2-46.3); HGB 11.4 g/dL (12.0-15.0); Lymphocytes % (A) 10.3 %; MCH 32.5 pg (27.0-32.0); MCHC 33.1 g/dL (32.0-37.0); Monocytes # (A) 0.05 10*3/uL (0.20-1.00); Monocytes % (A) 1.3 %; Neutrophils # (A) 3.41 10*3/uL (1.80-7.70); Neutrophils % (A) 87.6 %; Platelet Count 281 10*3/uL (140-440); RBC 3.51 10*6/uL (4.10-5.20); RDW 18.4 % (11.5-14.5); WBC 3.89 10*3/uL (4.50-10.00)
[2025-02-04 06:50] LABS: ALT 67 U/L (4-34); AST 59 U/L (14-36); African American GFR (CKD) >90 (>60 ml/min/1.73 sqM); Albumin 3.6 g/dL (3.5-5.0); Alkaline Phosphatase 270 U/L (38-126); Anion Gap 13 mmol/L; Blood Urea Nitrogen 6 mg/dL (7-17); Calcium 10.4 mg/dL (8.4-10.2); Carbon Dioxide 20 mmol/L (22-30); Chloride 105 mmol/L (98-107); Glucose 136 mg/dL (74-99); Magnesium 1.8 mg/dL (1.6-2.3); Non-African American GFR(CKD) >90 (>60 ml/min/1.73 sqM); Potassium 4.1 mmol/L (3.5-5.1); Sodium 138 mmol/L (137-145); Total Bilirubin 0.5 mg/dL (0.2-1.3); Total Protein 7.1 g/dL (6.3-8.2)
[2025-02-04 07:07] LABS: Appearance,Urine Clear (Clear); Bilirubin,Urine Negative (Negative); Blood,Urine Negative (Negative); Color,Urine Yellow; Glucose,Urine (UA) Negative (Negative); Ketones,Urine 1+ (Negative); Leukocyte Esterase,Urine Negative (Negative); Nitrite,Urine Negative (Negative); PH, Urine 5.5 (5.0-8.0); Protein,Urine Trace (Negative); Urobilinogen,Urine <2.0 mg/dL (<2.0)
[2025-02-04 07:14] LABS: Specific Gravity,Urine >1.050 (1.001-1.035)
[2025-02-04] MEDS ORDERED: oxyCODONE-APAP 10-325MG 1 EACH TAB PO PRN (10:13)
[2025-02-04] MEDS: PANTOPRAZOLE 40 MG TABLET PO SCH (12:32)
[2025-02-04] MEDS ORDERED: RX INFO: IV CONTRAST WAS GIVEN 1 EACH MISC MISCELLANE PRN (15:09)
[2025-02-04] MEDS: MORPHINE SULFATE ER 15 MG TABLET PO SCH (15:43)
[2025-02-04] MEDS ORDERED: bisacodyL 5 MG TABLET.DR PO PRN (16:01)
--- NOTE | 2025-02-04 16:12 | P.HPIM ---
History of Present Illness H&P Date: 02/04/25 Patient is a 49-year-old female with history of ovarian cancer and uterine cancer (last chemotherapy around November 2024, Dr. Darrius Newberry), DVT (on eliquis), history of tubal ligation here for evaluation of back pain. Patient reported that she is experiencing severe back pain 10/10 aching radiating to the lower abdomen with associated pleuritic pain when she takes an of breath. She has tried her home pain medications but they have not improved her pain despite increasing the frequency of intake. She denied chest pain, palpitations, focal weakness, vision changes, speech changes, diaphoresis, changes in urination or defecation. no bleeding or bruising. She was recently admitted 12/30 for p ossible radiation-induced enteritis and new left lower extremity DVT. Required TPN during admission. Placed was on Eliquis. Home pain meds not working? did not work. On admission: Vitals: Temp 98.1, TX 75, RR 20, BP 141/98, O2 saturation 99% on room air Labs: WBC 5.76, hemoglobin 12.4, MCV 99.7, sodium 136, potassium 3.9, bicarb 21, BUN 6, creatinine 0.48, glucose 82, calcium 10.2, phosphorus 3.7, magnesium 1.7, AST 56, ALT 61, alk phos 287, albumin 3.1. Troponin 0.035. Urinalysis showed greater than 1.05 specific gravity, negative glucose, +1 ketones, negative nitrites, negative leukocyte esterase. Imaging: EKG showed sinus rhythm with a rate of 85 bpm, normal axis, normal QRS duration, no ST-T changes, QTc 398 MS QTc [address] angiography showed no CT evidence for acute pulmonary embolism, mild emphysematous changes without acute pulmonary process, scattered small bilateral pulmonary nodules that are stable, 1.7 cm right thyroid nodule CT abdomen pelvis showed no suspicious new/acute findings from prior imaging. ED documentation reviewed. Review of systems: Pertinent positives and negatives as discussed in HPI, a complete review of systems was performed and all other systems are negative. Social history: Tobacco: Denied history of tobacco intake Alcohol: Denied history of alcohol use Recreational drugs: Denied history of recreational or illicit drug use Travel: No recent prolonged travel Physical examination: Vital signs reviewed General: non toxic, no distress, appears at stated age, on room air Derm: no unusual rashes/lesions, warm Head: atraumatic, normocephalic, symmetric Eyes: EOMI, anicteric sclera, pupils equal round reactive to light ENT: Nose and ears atraumatic Neck: No cervical lymphadenopathy, trachea midline, supple Mouth: no lip lesion, mucus membranes moist Cardiovascular: S1S2 reg, no murmur Lungs: CTA bilateral, no rhonchi, no rales, no accessory muscle use Abdominal: soft, nondistended, nontender to palpation, no guarding Ext: muscle strength 5 out of 5 in all 4 extremities grossly, no gross muscle atrophy, no contractures, positive dorsalis pedis pulse bilateral, no edema, tenderness on deep palpation of the left and right lumbar area Neuro: CN II-XI grossly intact, no gross focal neuro deficits Psych: Alert and oriented x 3, appropriate affect and mood Assessment/Plan: Patient is a 49-year-old male with active cancer reevaluation of severe back pain that has been intolerable with oral medication and associated shortness of breath and pleuritic pain. Imaging is negative for pulmonary embolism or cardiac causes. Suspecting pain is related to her cancer. The patient is admitted with an anticipated greater than 2 midnight stay for evaluation of intractable pain Active: #. Intractable pain, cancer induced #. Pulmonary nodules #. Right thyroid nodule #. Retroperitoneal lymphadenopathy #. History of ovarian and uterine cancer, on chemotherapy CT abdomen pelvis showed no suspicious new/acute findings from prior imaging CT angiography showed no CT evidence for acute pulmonary embolism, scattered small bilateral pulmonary nodules that are stable, 1.7 cm right thyroid nodule Pain control with IV Dilaudid and IV ketorolac Continue with home Percocet and fentanyl patch Continue with Zofran p.o. Initiated MS Contin 50 mg p.o. every 12 hours Given Solu-Medrol 125 mg IV in the ED 0.9 normal saline 60 cc per hour Bisacodyl as needed for constipation Consult oncology #. Macrocytosis, likely from chemotherapy MCV 99.7, hemoglobin 12.4 Repeat CBC #. NSTEMI type II Troponin 0.035 on admission. Now less than 0.0 12 proBNP 64 EKG showed sinus rhythm with a rate of 85 bpm, normal axis, no ST-T changes, no arryhthmia noted. Patient not experiencing chest pain at this time. EKG as needed Will monitor for now Chronic Conditions: #. History of DVT Continue Eliquis 5 mg p.o. twice daily DVT ppx: Eliquis 5 mg p.o. twice daily CODE STATUS: Full Discussed with: Patient and patient's family Anticipated discharge place: Home Teresita Xiao MD PGY-1 Internal Medicine Dictation was produced using [employer] dictation software. please excuse any grammatical, word or spelling errors. Past Medical History Past Medical History: Cancer Additional Past Medical History / Comment(s): OB history: She has had 5 vaginal deliveries, one spontaneous and one elective . uterine cancer. BLEEDING-GIVEN DDAVP. History of Any Multi-Drug Resistant Organisms: None Reported Past Surgical History: Tubal Ligation Past Anesthesia/Blood Transfusion Reactions: No Reported Reaction Past Psychological History: No Psychological Hx Reported Smoking Status: Former smoker Past Alcohol Use History: None Reported Past Drug Use History: None Reported - Past Family History Mother Family Medical History: Dementia, Myocardial Infarction ([place]) Medications and Allergies Home Medications Medication Instructions Recorded Confirmed Type Multivitamins, Thera [Multivitamin 1 tab PO DAILY 12/31/24 02/04/25 History (formulary)] Ondansetron [Zofran] 4 mg PO Q6H PRN 12/31/24 02/04/25 History Apixaban [Eliquis] 5 mg PO BID #60 tab 01/23/25 02/04/25 Rx Docusate [Colace] 100 mg PO BID #60 cap 01/23/25 02/04/25 Rx Megestrol [Megace] 40 mg PO BID #60 tab 01/23/25 02/04/25 Rx Pantoprazole Sodium [Protonix] 20 mg PO DAILY #30 tab 01/23/25 02/04/25 Rx oxyCODONE-APAP 10-325MG [Percocet 1 tab PO Q4H 02/04/25 02/04/25 History 10-325 mg] Celecoxib 200 mg PO BID PRN #30 cap 02/07/25 Rx DULoxetine HCL [Cymbalta] 20 mg PO DAILY #30 cap 02/07/25 Rx Folic Acid 1 mg PO DAILY #0 tab 02/07/25 Rx Lidocaine 4% Patch 1 patch TOPICAL Q24H #30 patch 02/07/25 Rx fentaNYL 100MCG/HR PATCH 1 patch TRANSDERM Q72H #10 patch 02/07/25 Rx [Duragesic 100MCG/HR] predniSONE See Taper PO DAILY #30 tab 02/07/25 Rx Allergies Allergy/AdvReac Type Severity Reaction Status Date / Time strawberry Allergy Unknown Verified 02/04/25 11:53 Physical Exam Vitals: Vital Signs Temp Pulse Pulse Resp BP BP Pulse Ox 02/04/25 06:58 98.2 F 102 H 16 117/75 96 02/04/25 01:40 98.0 F 94 18 120/77 99 02/04/25 00:51 100 18 120/72 97 02/04/25 00:21 16 02/04/25 00:18 78 02/04/25 00:08 75 02/03/25 23:37 87 18 123/80 98 02/03/25 21:40 84 16 144/88 98 02/03/25 20:38 98.1 F 75 20 141/98 99 Intake and Output 02/03/25 02/04/25 02/04/25 22:59 06:59 14:59 Other: Voiding Method Toilet # Voids 1 Weight 55.792 kg 55.792 kg Results CBC & Chem 7: 02/06/25 06:08 02/05/25 06:14 Labs: Abnormal Lab Results - Last 24 Hours (Table) 02/03/25 02/03/25 02/04/25 Range/Units 23:00 23:22 02:13 WBC (4.50-10.00) 10*3/uL RBC 3.84 L (4.10-5.20) 10*6/uL Hgb (12.0-15.0) g/dL Hct (37.2-46.3) % MCV 99.7 H D (80.0-97.0) fL MCH 32.3 H (27.0-32.0) pg Lymphocytes # (0.90-5.00) 10*3/uL Monocytes # (0.20-1.00) 10*3/uL Eosinophils # (0.04-0.35) 10*3/uL Sodium 136 L (137-145) mmol/L Carbon Dioxide 21 L (22-30) mmol/L BUN 6 L (7-17) mg/dL Creatinine 0.48 L (0.52-1.04) mg/dL Glucose (74-99) mg/dL Calcium (8.4-10.2) mg/dL AST 56 H (14-36) U/L ALT 61 H (4-34) U/L Alkaline Phosphatase 287 H (38-126) U/L Troponin I 0.035 H* (0.000-0.034) ng/mL Total Protein 6.0 L (6.3-8.2) g/dL Albumin 3.1 L (3.5-5.0) g/dL Ur Specific [place] (1.001-1.035) Urine Protein (Negative) Urine Ketones (Negative) 02/04/25 02/04/25 02/04/25 Range/Units 05:49 05:49 06:51 WBC 3.89 L (4.50-10.00) 10*3/uL RBC 3.51 L (4.10-5.20) 10*6/uL Hgb 11.4 L (12.0-15.0) g/dL Hct 34.4 L (37.2-46.3) % MCV 98.0 H (80.0-97.0) fL MCH 32.5 H (27.0-32.0) pg Lymphocytes # 0.40 L (0.90-5.00) 10*3/uL Monocytes # 0.05 L (0.20-1.00) 10*3/uL Eosinophils # 0.00 L (0.04-0.35) 10*3/uL Sodium (137-145) mmol/L Carbon Dioxide 20 L (22-30) mmol/L BUN 6 L (7-17) mg/dL Creatinine 0.45 L (0.52-1.04) mg/dL Glucose 136 H (74-99) mg/dL Calcium 10.4 H (8.4-10.2) mg/dL AST 59 H (14-36) U/L ALT 67 H (4-34) U/L Alkaline Phosphatase 270 H (38-126) U/L Troponin I (0.000-0.034) ng/mL Total Protein (6.3-8.2) g/dL Albumin (3.5-5.0) g/dL Ur Specific [place] >1.050 H (1.001-1.035) Urine Protein Trace H (Negative) Urine Ketones 1+ H (Negative) Thrombosis Risk Factor Assmnt - Choose All That Apply Each Factor Represents 1 point: Age 41-60 years Other Risk Factors: No Other congenital or acquired thrombophilia - If yes, enter type in comment: No Thrombosis Risk Factor Assessment Total Risk Factor Score: 1 Thrombosis Risk Factor Assessment Level: Low Risk Assessment and Plan 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
[2025-02-04] MEDS: LIDOCAINE 4% PATCH TOPICAL SCH (17:19)
[2025-02-04] MEDS: DULoxetine HCL 20 MG CAPSULE.DR PO SCH (17:19)
--- NOTE | 2025-02-04 19:01 | CT ---
EXAMINATION TYPE: CT pelvis w con DATE OF EXAM: 02/04/2025 5:13 PM COMPARISON: 02/03/2025 CT abdomen and pelvis CLINICAL INDICATION: Female, 49 years old with history of c/o hip/low back pain, radiating to groin, C/o severe hip/lower back pain radiating into groin, hx of uterine ca TECHNIQUE: Contrast used:100ml mL of Isovue 300 with IV Contrast, (none if empty) Oral contrast used: without Oral Contrast (none if empty) Axial images at 5 mm thick sections. Reconstructed images in the coronal and sagittal planes. FINDINGS: There is fluid within the endometrial canal. Adnexa appear within normal limits. Loops of bowel are u nremarkable. Urinary bladder has contrast. Sacroiliac joints are patent. Iliac wings are normal. Femoral heads articulate with the acetabulum. M ild joint space narrowing is present. Symphysis pubis and pubic ramus initial ramus appear intact. Fe moral necks appear intact. IMPRESSION: 1. THERE IS AN ECCENTRIC FLUID COLLECTION WITHIN THE ENDOMETRIAL CANAL REGION. UNDERLYING FIBROID OR MASS WITHIN THE UTERINE BODY MAY BE PRESENT. 2. NO SUSPICIOUS ABNORMALITY TO ACCOUNT FOR THE PATIENT'S SYMPTOMS. [facility], , 02/04/2025 6:59 PM
[2025-02-04] MEDS: DOCUSATE 100 MG CAP PO SCH (20:18)
[2025-02-04] MEDS: APIXABAN 5 MG TAB PO SCH (20:18)
[2025-02-04] MEDS: ONDANSETRON ODT 4 MG TAB PO PRN (20:19)
--- NOTE | 2025-02-04 21:30 | CT ---
EXAMINATION TYPE: CT lumbar spine w con DATE OF EXAM: 02/04/2025 5:13 PM COMPARISON: None. CLINICAL INDICATION: Female, 49 years old with history of c/o hip/low back pain, radiating to groin, C/o severe hip/lower back pain radiating into groin, hx of uterine ca, pain TECHNIQUE: CT of the lumbar spine is performed on a spiral scan at 3 mm thick sections. Reconstructed images are performed in the coronal and sagittal planes. Contrast used:100ml mL of Isovue 300 with IV Contrast, (none if empty) Oral contrast used: (none if empty) CT DLP: 833.1 mGycm, Automated exposure control for dose reduction was used. FINDINGS: T12-L1: No focal disc herniation or significant disc bulge is evident. No spinal canal stenosis or neural foraminal stenosis is present. L1-L2: No focal disc herniation or significant disc bulge is evident. No spinal canal stenosis or n eural foraminal stenosis is present L2-L3: No focal disc herniation or significant disc bulge is evident. No spinal canal stenosis or n eural foraminal stenosis is present L3-L4: No focal disc herniation or significant disc bulge is evident. No spinal canal stenosis or n eural foraminal stenosis is present L4-L5: No focal disc herniation or significant disc bulge is evident. No spinal canal stenosis or n eural foraminal stenosis is present L5-S1: Mild L5-S1 disc space narrowing is present. Mild disc bulge is present with anterior thecal sa c contact. No spinal canal stenosis is present. No significant disc bulging. Spondylolysis of L5 is present. Vertebral alignment appears normal. IMPRESSION: Spondylolysis of L5. Mild disc bulge at L5-S1 without spinal canal stenosis [facility], , 02/04/2025 9:28 PM
[2025-02-05 06:42] LABS: Basophils # (A) 0.02 10*3/uL (0.00-0.10); Basophils % (A) 0.3 %; Eosinophils # (A) 0.02 10*3/uL (0.04-0.35); Eosinophils % (A) 0.3 %; HCT 33.5 % (37.2-46.3); HGB 10.9 g/dL (12.0-15.0); Lymphocytes # (A) 1.03 10*3/uL (0.90-5.00); Lymphocytes % (A) 17.7 %; MCH 32.7 pg (27.0-32.0); MCHC 32.5 g/dL (32.0-37.0); MCV 100.6 fL (80.0-97.0); Mean Platelet Volume 9.7 fL (9.5-12.2); Monocytes # (A) 0.44 10*3/uL (0.20-1.00); Monocytes % (A) 7.6 %; Neutrophils % (A) 73.9 %; Platelet Count 297 10*3/uL (140-440); RBC 3.33 10*6/uL (4.10-5.20); RDW 18.6 % (11.5-14.5); WBC 5.82 10*3/uL (4.50-10.00)
[2025-02-05 06:58] LABS: African American GFR (CKD) >90 (>60 ml/min/1.73 sqM); Anion Gap 6 mmol/L; Blood Urea Nitrogen 10 mg/dL (7-17); Carbon Dioxide 22 mmol/L (22-30); Chloride 108 mmol/L (98-107); Glucose 95 mg/dL (74-99); Non-African American GFR(CKD) >90 (>60 ml/min/1.73 sqM); Sodium 136 mmol/L (137-145)
--- NOTE | 2025-02-05 09:22 | P.CONS ---
History of Present Illness - Reason for Consult Consult date: 02/04/25 Small cell neuroendocrine cervical malignancy Requesting physician: Tristin Nichols - Chief Complaint low back pain, radiating into hip and groin - History of Present Illness Below is consult from extended hospitalization 4 weeks ago. Pt has not had any additional outpt treatment or scans since her discharge. She saw Dr. Simon on 01/25/25. She was not having vaginal bleeding, fair pain control and appetite at that time. It was not clear if the pain was related to bowel inflammation related to the chemotherapy/radiation and/or inflammation related to the tumor. Plan to resume treatment-tomorrow. She was continued on fentanyl and Percocet 10. PEG G-CSF has been added to her regimen Ms Montague is a pleasant female pt of Dr. Simon. Was initially seen in consult at [facility] on 11/02/24. She had been having intermittent episodes of bright red and brown spotting with hot flashes since early summer. She subsequently developed lower abdominal and pelvic discomfort. Over the prior few weeks, this had become very prominent and persistent and was also associated with lower back pain. She had an ER visit on 10/28/24 for this compla int with CT AP showed abnormal thickening of the cervix and lower uterine segment with gas and fluid. There was an eccentric endometrial mass measuring up to 2 cm. Multiple enlarged periaortic, pericaval and bilateral common iliac lymph nodes were seen with necrotic appearance as well as bilateral indeterminant ovarian cystic lesions. The patient had a transvaginal ultrasound showing cervical bulkiness concerning for neoplasm dilated fluid filled endometrium, and 3.4 cm heterogenous mass associated with the uterine body. The patient was discharged for outpatient follow-up but came back was well- controlled pelvic pain. The clinical picture was felt to be quite concerning for malignancy and biopsy was recommended. CT of the chest was performed for baseline on 11/03/24, revealing multiple innumerable pulmonary nodules highly concerning for metastasis. The patient was subsequently seen at [facility] with initial biopsy on 11/06/34 being nondiagnostic. Repeat biopsy with [facility] oncology was recommended. She was seen by Dr. Adorno, and had a pelvic exam with cervical biopsy underwent [facility] on 11/19/24. This revealed a 6-8 cm cervical mass involving the anterior vagina wall, extending to the left parametrial. 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 The patient was seen for her first office visit on 11/26/24. She is s/p 2 cycles of carbo/[employer]/tecentriq, she also had 5 doses of palliative radiation late November for palliation of vaginal bleeding. She was continued on anti-coagulation although Dopplers were negative for a definite diagnosis of DVT. The patient was felt to be at high risk given her underlying diagnosis and symptoms due to which it was decided to continue anticoagulation at this time. Her Hgb has remained stale in the 9-10 range on chemo/IO. She did develop an overt DVT of the LLE during her prolonged hospitalization 4 weeks ago. She required GCSF. 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 She finally was able to be discharged about 12 days ago. Pt is admitted with c/o lower abdomen and low back pain, radiating into the hips and into the groin, this is persistent, her pain medications at home are no longer working. She reports sternal chest discomfort with deep breathing, progressive x 1 week but, denies any fevers, cough, palpitations, chest pain on exertion-it is only with deep breathing. She also has difficulty laying flat because of pain. She reports that she is tolerating oral intake and fair amounts, her stools are soft, denies any vaginal bleeding at this time. CTA of the chest is negative for pulmonary embolism. Small bilateral pulmonary nodules are stable. 1.7 cm right thyroid nodule. CT AP reporting stable circumscribed 3.3 cm eccentric mass in the uterus. Persistent abnormal lymph nodes in the retroperitoneum of the abdomen, causing mass effect of the abdominal aorta and IVC, measuring 5.9 x 2.9 cm. There are no new findings based on this report when compared to CT of the abdomen and pelvis from January 22. Laboratory investigation showing mild anemia mild leukopenia with white blood cell count of 3.89, normal ANC of 3.41. BUN 6, creatinine 0.45, calcium 10.4. Alk phos 270. Slightly elevated LFTs Review of Systems 10 point review of systems is negative except as stated in HPI Past Medical History Past Medical History: Cancer Additional Past Medical History / Comment(s): OB history: She has had 5 vaginal deliveries, one spontaneous and one elective . uterine cancer. BLEEDING-GIVEN DDAVP. History of Any Multi-Drug Resistant Organisms: None Reported Past Surgical History: Tubal Ligation Past Anesthesia/Blood Transfusion Reactions: No Reported Reaction Past Psychological History: No Psychological Hx Reported Smoking Status: Former smoker Past Alcohol Use History: None Reported Past Drug Use History: None Reported - Past Family History Mother Family Medical History: Dementia, Myocardial Infarction ([place]) Medications and Allergies Home Medications Medication Instructions Recorded Confirmed Type Multivitamins, Thera [Multivitamin 1 tab PO DAILY 12/31/24 02/04/25 History (formulary)] Ondansetron [Zofran] 4 mg PO Q6H PRN 12/31/24 02/04/25 History Apixaban [Eliquis] 5 mg PO BID #60 tab 01/23/25 02/04/25 Rx Docusate [Colace] 100 mg PO BID #60 cap 01/23/25 02/04/25 Rx Megestrol [Megace] 40 mg PO BID #60 tab 01/23/25 02/04/25 Rx Pantoprazole Sodium [Protonix] 20 mg PO DAILY #30 tab 01/23/25 02/04/25 Rx fentaNYL 50MCG/HR PATCH [Duragesic 1 patch TRANSDERM Q72H #1 patch 01/23/25 02/04/25 Rx 50MCG/HR] oxyCODONE-APAP 10-325MG [Percocet 1 tab PO Q4H 02/04/25 02/04/25 History 10-325 mg] Allergies Allergy/AdvReac Type Severity Reaction Status Date / Time strawberry Allergy Unknown Verified 02/04/25 11:53 Physical Exam Vitals: Vital Signs Temp Pulse Pulse Resp BP BP Pulse Ox 02/04/25 08:19 96 02/04/25 06:58 98.2 F 102 H 16 117/75 96 02/04/25 01:40 98.0 F 94 18 120/77 99 02/04/25 00:51 100 18 120/72 97 02/04/25 00:21 16 02/04/25 00:18 78 02/04/25 00:08 75 02/03/25 23:37 87 18 123/80 98 02/03/25 21:40 84 16 144/88 98 02/03/25 20:38 98.1 F 75 20 141/98 99 Intake and Output 02/03/25 02/04/25 02/04/25 22:59 06:59 14:59 Other: Voiding Method Toilet # Voids 1 Weight 55.792 kg 55.792 kg - Constitutional General appearance: average body habitus (Petite), cooperative, no acute distress - EENT Eyes: anicteric sclerae, EOMI ENT: hearing grossly normal, normal oropharynx - Respiratory Respiratory: bilateral: CTA - Cardiovascular Rhythm: regular Heart sounds: normal: S1, S2 Abnormal Heart Sounds: no systolic murmur, no diastolic murmur, no rub, no S3 Gallop, no S4 Gallop, no click, no other leg Peripheral Edema: right: None, left: Trace - Gastrointestinal General gastrointestinal: no absent bowel sounds, no decreased bowel sounds, no distended, no hepatomegaly, no hyperactive bowel sounds, normal bowel sounds, no organomegaly, no rigid, no scaphoid, soft, no splenomegaly, tenderness, no umbilical hernia, no ventral hernia - Integumentary Integumentary: normal - Neurologic Neurologic: CNII-XII intact - Musculoskeletal Musculoskeletal: strength equal bilaterally - Psychiatric Psychiatric: A&O x's 3, appropriate affect, intact judgment & insight Results CBC & Chem 7: 02/04/25 05:49 02/04/25 05:49 Labs: Abnormal Lab Results - Last 24 Hours (Table) 02/03/25 02/03/25 02/04/25 Range/Units 23:00 23:22 02:13 WBC (4.50-10.00) 10*3/uL RBC 3.84 L (4.10-5.20) 10*6/uL Hgb (12.0-15.0) g/dL Hct (37.2-46.3) % MCV 99.7 H D (80.0-97.0) fL MCH 32.3 H (27.0-32.0) pg Lymphocytes # (0.90-5.00) 10*3/uL Monocytes # (0.20-1.00) 10*3/uL Eosinophils # (0.04-0.35) 10*3/uL Sodium 136 L (137-145) mmol/L Carbon Dioxide 21 L (22-30) mmol/L BUN 6 L (7-17) mg/dL Creatinine 0.48 L (0.52-1.04) mg/dL Glucose (74-99) mg/dL Calcium (8.4-10.2) mg/dL AST 56 H (14-36) U/L ALT 61 H (4-34) U/L Alkaline Phosphatase 287 H (38-126) U/L Troponin I 0.035 H* (0.000-0.034) ng/mL Total Protein 6.0 L (6.3-8.2) g/dL Albumin 3.1 L (3.5-5.0) g/dL Ur Specific [place] (1.001-1.035) Urine Protein (Negative) Urine Ketones (Negative) 02/04/25 02/04/25 02/04/25 Range/Units 05:49 05:49 06:51 WBC 3.89 L (4.50-10.00) 10*3/uL RBC 3.51 L (4.10-5.20) 10*6/uL Hgb 11.4 L (12.0-15.0) g/dL Hct 34.4 L (37.2-46.3) % MCV 98.0 H (80.0-97.0) fL MCH 32.5 H (27.0-32.0) pg Lymphocytes # 0.40 L (0.90-5.00) 10*3/uL Monocytes # 0.05 L (0.20-1.00) 10*3/uL Eosinophils # 0.00 L (0.04-0.35) 10*3/uL Sodium (137-145) mmol/L Carbon Dioxide 20 L (22-30) mmol/L BUN 6 L (7-17) mg/dL Creatinine 0.45 L (0.52-1.04) mg/dL Glucose 136 H (74-99) mg/dL Calcium 10.4 H (8.4-10.2) mg/dL AST 59 H (14-36) U/L ALT 67 H (4-34) U/L Alkaline Phosphatase 270 H (38-126) U/L Troponin I (0.000-0.034) ng/mL Total Protein (6.3-8.2) g/dL Albumin (3.5-5.0) g/dL Ur Specific [place] >1.050 H (1.001-1.035) Urine Protein Trace H (Negative) Urine Ketones 1+ H (Negative) CT scan - abdomen: report reviewed CT scan - chest: report reviewed CT scan - pelvis: report reviewed Assessment and Plan (1) Hip pain Current Visit: Yes Status: Acute Priority: High Code(s): M25.559 - PAIN IN UNSPECIFIED HIP SNOMED Code(s): 71725054 (2) Pelvic pain Current Visit: Yes Status: Acute Priority: High Code(s): R10.2 - PELVIC AND PERINEAL PAIN SNOMED Code(s): 84322992 (3) Neuroendocrine carcinoma Current Visit: Yes Status: Acute Priority: Medium Code(s): C7A.8 - OTHER MALIGNANT NEUROENDOCRINE TUMORS SNOMED Code(s): 977096120 Plan: Hip/low back/low pelvic pain - Patient has had similar pain before. - Imaging is not showing any new findings. Pain suspected to be related to retroperitoneal lymphadenopathy and cervical malignancy - Patient was on fentanyl and Percocet prior to admit. Continue fentanyl. IV pain medications have been ordered for acute pain. - Consult to Pain Management to assess the patient and see what options they can offer for pain mgmt. -CT scan of the low back, bilateral hips to see if any underlying cause can be identified. - Patient is also complaining of sternal pain with deep breathing. Not sure if this is due to patient's prolonged hospitalization prior, possibly a costochondritis?. Lidoderm patch was ordered. Incentive spirometry ordered. - Concerns for possible depression that may be contributing to perception of pain. Cymbalta has been started. Small cell neuroendocrine cervical carcinoma - Diagnosis and treatment, thus far,as documented in HPI. S/P 2 cycles of chemo/IO, short course of radiation for palliation of vaginal bleeding - Patient was due to start the next cycle of carboplatin/etoposide/Tecentriq tomorrow. This will be delayed until patient has adequate pain control and is discharged. Her treatment plan was modified by the Medical Oncologist when seen about 9 to 10 days ago Doctor attests: I performed a history and physical examination of this patient, developed impression and plan of care. Discussed with dictator. I agree with dictators note, documented as a scribe.
[2025-02-05] MEDS: FOLIC ACID 1 MG TAB PO SCH (12:43)
--- NOTE | 2025-02-05 14:17 | P.PAINCN ---
History of Present Illness - History of Present Illness This is a 49-year-old pleasant lady with history of uterine cancer has been ad mitted with severe lower abdominal, pelvic, groin and back pain. Patient was at emergency room with similar pain episodes for few days ago was reasonably controlled at home with MS Contin 45 mg twice a day and Reading. But as pain was getting worse patient has been admitted at this time for pain control. As mentioned above pain is located in the lower abdomen pelvic area also going down to the groins and lower back area. Pain is there all the time 24 hours a day intensity goes up to 10/10. And with the current medication pain is only controlled up to 8-9/10. Laying on her back and activity significantly increases her pain. Patient has to be in sitting position to avoid excruciating pain. Describes her pain as aching in character. Patient currently on fentanyl patch 50 mcg/h plus Dilaudid IV 1 mg every 3 hours as needed plus Percocet 10/325 every 6 hours as needed. Past Medical History Past Medical History: Cancer Additional Past Medical History / Comment(s): OB history: She has had 5 vaginal deliveries, one spontaneous and one elective . uterine cancer. BLEEDING-GIVEN DDAVP. History of Any Multi-Drug Resistant Organisms: None Reported Past Surgical History: Tubal Ligation Past Anesthesia/Blood Transfusion Reactions: No Reported Reaction Past Psychological History: No Psychological Hx Reported Smoking Status: Former smoker Past Alcohol Use History: None Reported Past Drug Use History: None Reported - Past Family History Mother Family Medical History: Dementia, Myocardial Infarction (CT) Medications and Allergies Home Medications Medication Instructions Recorded Confirmed Type Multivitamins, Thera [Multivitamin 1 tab PO DAILY 12/31/24 02/04/25 History (formulary)] Ondansetron [Zofran] 4 mg PO Q6H PRN 12/31/24 02/04/25 History Apixaban [Eliquis] 5 mg PO BID #60 tab 01/23/25 02/04/25 Rx Docusate [Colace] 100 mg PO BID #60 cap 01/23/25 02/04/25 Rx Megestrol [Megace] 40 mg PO BID #60 tab 01/23/25 02/04/25 Rx Pantoprazole Sodium [Protonix] 20 mg PO DAILY #30 tab 01/23/25 02/04/25 Rx fentaNYL 50MCG/HR PATCH [Duragesic 1 patch TRANSDERM Q72H #1 patch 01/23/25 02/04/25 Rx 50MCG/HR] oxyCODONE-APAP 10-325MG [Percocet 1 tab PO Q4H 02/04/25 02/04/25 History 10-325 mg] Allergies Allergy/AdvReac Type Severity Reaction Status Date / Time strawberry Allergy Unknown Verified 02/04/25 11:53 Physical Exam Vitals: Vital Signs Temp Pulse Resp BP Pulse Ox 02/05/25 07:00 98.0 F 76 16 101/62 97 02/05/25 02:00 98.0 F 95 16 112/71 99 02/04/25 20:00 97.9 F 99 17 126/86 94 L 02/04/25 15:00 98.2 F 95 16 122/85 97 Intake and Output 02/04/25 02/05/25 02/05/25 22:59 06:59 14:59 Other: Voiding Method Toilet Toilet # Voids 2 2 Limited physical exam was done because of this patient inability to lay on her back. Back exam. Mild to moderate tenderness in the lumbar spine, sacrum. Tenderness over the lumbar paraspinal areas. Lumbosacral spine flexion hyperextension rotation within normal limit not hyperextension causes significantly increased pain. Motor strength grossly 5/5 in lower extremities. Sensation to touch grossly intact bilaterally. Tenderness over the abdomen on deep palpation. Results CBC & Chem 7: 02/05/25 06:14 02/05/25 06:14 Labs: Abnormal Lab Results - Last 24 Hours (Table) 02/05/25 02/05/25 Range/Units 06:14 06:14 RBC 3.33 L (4.10-5.20) 10*6/uL Hgb 10.9 L (12.0-15.0) g/dL Hct 33.5 L (37.2-46.3) % MCV 100.6 H (80.0-97.0) fL MCH 32.7 H (27.0-32.0) pg RDW 18.6 H (11.5-14.5) % Eosinophils # 0.02 L (0.04-0.35) 10*3/uL Sodium 136 L (137-145) mmol/L Chloride 108 H (98-107) mmol/L Comments: ET scan of the lumbar spine was reviewed. Mild lesion in the L5-S1 area. Assessment and Plan Assessment: Pelvic pain. Low back pain. Chest pain on deep inspiration. Most likely secondary to pulmonary metastasis with pleural involvement. Could not elicit any costochondritis pain. It appears that most of her pain is secondary to malignancy in the uterus with metastasis. The mild lesion in the lumbar spine as shown in CT is unlikely to cause the significant amount of pain. Plan: At this time could not appreciate this amount of significant pain coming from lumbar spine. Also as patient has DVT and more prone to DVT and pulmonary embolism if her Eliquis is stopped, probably it is not worth taking risk to be off from Eliquis to get epidural steroid injection. Will hold off any interventional procedure at this time. Would suggest followings. 1. Tapered dose of steroid for short period to decrease any swelling of nerve roots if any. 2. Increase fentanyl patch to 100 mics per hour every 3 days. 3. Continue Percocet 10/325 p.o. every 6 hours [id number] for next 2 days then as needed basis. 4. Continue Toradol. 5. Continue lidocaine patch. 6. Continue IV Dilaudid up until increased fentanyl patch dose kicks in. 7. According to patient even with significant dose of MS Contin 45 mg every 12 hours did not work for her in the past, at this time, will not put her on MS Contin. Discussed with the patient the plan of treatment. She understands. All questions answered. PQRS Measure Charge Sheet - Pain Location Lower Back Non-Pharmacological Interventions: Darkened Room, Distraction Pharmacological Interventions: PRN Medication Chest Non-Pharmacological Interventions: Darkened Room, Distraction Pharmacological Interventions: Discuss Pain Med Options, PRN Medication PQRS Narrative: Smoking Status Current every day smoker Blood Pressure [Right Arm] 101/62 Blood Pressure 120/72 Pain Intensity [Chest] 10 Pain Intensity [Lower Back] 10 Pain Intensity 9 Pain Scale Used Numeric (1 - 10) Scale Used Numeric (1 - 10) Home Medications: Ambulatory Orders Multivitamins, Thera [Multivitamin (formulary)] 1 tab PO DAILY 12/31/24 Ondansetron [Zofran] 4 mg PO Q6H PRN 12/31/24 Apixaban [Eliquis] 5 mg PO BID #60 tab 01/23/25 Docusate [Colace] 100 mg PO BID #60 cap 01/23/25 Megestrol [Megace] 40 mg PO BID #60 tab 01/23/25 Pantoprazole Sodium [Protonix] 20 mg PO DAILY #30 tab 01/23/25 fentaNYL 50MCG/HR PATCH [Duragesic 50MCG/HR] 1 patch TRANSDERM Q72H #1 patch 01/23/25 oxyCODONE-APAP 10-325MG [Percocet 10-325 mg] 1 tab PO Q4H 02/04/25
--- NOTE | 2025-02-05 14:56 | P.PN ---
Subjective Progress Note Date: 02/05/25 Principal diagnosis: Lower abd pain, low back pain, bilateral hip pain. On treatment for metastatic small cell neuroendocrine cervical carcinoma In f/u today pt reports pain (low back and low abd, bilateral hips) is 9/10 instead of 06/07. CT scans are not able to identify a specific cause for pt c/o. Objective - Vital Signs Vital signs: Vital Signs Temp 98.0 F 02/05/25 07:00 Pulse 76 02/05/25 07:00 Resp 16 02/05/25 07:00 BP 101/62 02/05/25 07:00 Pulse Ox 97 02/05/25 07:00 FiO2 Intake & Output 02/04/25 02/05/25 02/05/25 18:59 06:59 18:59 Other: Voiding Method Toilet Toilet # Voids 4 2 - Constitutional General appearance: Present: average body habitus, cooperative, no acute distress - EENT Eyes: Present: anicteric sclerae, EOMI ENT: Present: hearing grossly normal - Respiratory Details: resp unlabored at rest - Cardiovascular Details: skin warm, well perfused - Peripheral edema leg Peripheral Edema: bilateral: None - Neurologic Neurologic: Present: CNII-XII intact - Musculoskeletal Musculoskeletal: Present: strength equal bilaterally - Psychiatric Psychiatric: Present: A&O x's 3, appropriate affect, intact judgment & insight - Labs CBC & Chem 7: 02/05/25 06:14 02/05/25 06:14 Labs: Abnormal Lab Results - Last 24 Hours (Table) 02/05/25 02/05/25 Range/Units 06:14 06:14 RBC 3.33 L (4.10-5.20) 10*6/uL Hgb 10.9 L (12.0-15.0) g/dL Hct 33.5 L (37.2-46.3) % MCV 100.6 H (80.0-97.0) fL MCH 32.7 H (27.0-32.0) pg RDW 18.6 H (11.5-14.5) % Eosinophils # 0.02 L (0.04-0.35) 10*3/uL Sodium 136 L (137-145) mmol/L Chloride 108 H (98-107) mmol/L - Imaging and Cardiology CT scan - pelvis: report reviewed CT lumbar spine/hips Assessment and Plan (1) Hip pain Current Visit: Yes Status: Acute Priority: High Code(s): M25.559 - PAIN IN UNSPECIFIED HIP SNOMED Code(s): 13789377 (2) Pelvic pain Current Visit: Yes Status: Acute Priority: High Code(s): R10.2 - PELVIC AND PERINEAL PAIN SNOMED Code(s): 36959151 (3) Neuroendocrine carcinoma Current Visit: Yes Status: Acute Priority: Medium Code(s): C7A.8 - OTHER MALIGNANT NEUROENDOCRINE TUMORS SNOMED Code(s): 464896017 Plan: Hip/low back/low pelvic pain - Patient has had similar pain before. - Imaging is not showing any new findings. Pain suspected to be related to retroperitoneal lymphadenopathy and cervical malignancy but this difficult to conform as there are no significant changes in disease on imaging -As Hem/Onc we have not been able to manage pt pain adequately. Refer to Pain Mgmt - Pain Management team has seen pt, reviewed their recommendations. Agree with plan. Will defer to them for pain control. -CT scan of the low back, bilateral hips did not identify any underlying cause for pt symptoms. - Sternal pain with deep breathing was not mentioned by pt today. Cont lidoderm and incentive spirometry ordered. - Concerns for possible depression that may be contributing to perception of pain. Cymbalta started. Can also be used as adjunct pain med. Will see how pt does with this Small cell neuroendocrine cervical carcinoma - Diagnosis and treatment, thus far,as documented in consult. S/P 2 cycles of chemo/IO, short course of radiation for palliation of vaginal bleeding - Patient was due to start the next cycle of carboplatin/etoposide/Tecentriq tomorrow. This will be delayed until patient has adequate pain control and is discharged. Her treatment plan was modified by the Medical Oncologist when seen about 9 to 10 days ago
--- NOTE | 2025-02-05 16:18 | P.PN ---
Subjective Progress Note Date: 02/05/25 Patient is a 49-year-old female with history of ovarian cancer and uterine cancer (last chemotherapy around November 2024, Dr. Darrius Newberry), DVT (on eliquis), history of tubal ligation here for evaluation of back pain. Patient reported that she is experiencing severe back pain 10/10 aching radiating to the lower abdomen with associated pleuritic pain when she takes an of breath. She has tried her home pain medications but they have not improved her pain despite increasing the frequency of intake. She denied chest pain, palpitations, focal weakness, vision changes, speech changes, diaphoresis, changes in urination or defecation. no bleeding or bruising. She was recently admitted 12/30 for possible radiation-induced enteritis and new left lower extremity DVT. Required TPN during admission. Placed was on Eliquis. On admission: Vitals: Temp 98.1, FL 75, RR 20, BP 141/98, O2 saturation 99% on room air Labs: WBC 5.76, hemoglobin 12.4, MCV 99.7, sodium 136, potassium 3.9, bicarb 21, BUN 6, creatinine 0.48, glucose 82, calcium 10.2, phosphorus 3.7, magnesium 1.7, AST 56, ALT 61, alk phos 287, albumin 3.1. Troponin 0.035. Urinalysis showed greater than 1.05 specific gravity, negative glucose, +1 ketones, negative nitrites, negative leukocyte esterase. Imaging: EKG showed sinus rhythm with a rate of 85 bpm, normal axis, normal QRS duration, no ST-T changes, QTc 398 MS QTc [address] angiography showed no CT evidence for acute pulmonary embolism, mild emphysematous changes without acute pulmonary process, scattered small bilateral pulmonary nodules that are stable, 1.7 cm right thyroid nodule CT abdomen pelvis showed no suspicious new/acute findings from prior imaging. 02/05/2025 patient seen and examined at bedside. Pain improving 9/10 intesity today per patient Labs: WBC 5.8, hemoglobin 10.9, platelet count 297,000, sodium 136, potassium 4, chloride 108, BUN 10, creatinine 0.52, glucose 95, calcium 10 Imaging; pelvis CT showed eccentric fluid collection within the endometrial canal with underlying fibroid or mass within the uterine body. Lumbar CT showed spondylosis of L5, mild disc bulge at L5-S1 without spinal canal stenosis Review of systems: Pertinent positives and negatives as discussed in HPI, a complete review of systems was performed and all other systems are negative. Social history: Tobacco: Denied history of tobacco intake Alcohol: Denied history of alcohol use Recreational drugs: Denied history of recreational or illicit drug use Travel: No recent prolonged travel Physical examination: Vital signs reviewed General: non toxic, no distress, appears older than stated age, thin and frail appearing, on room air Derm: no unusual rashes/lesions, warm Head: atraumatic, normocephalic, symmetric Eyes: EOMI, anicteric sclera, pupils equal round reactive to light ENT: Nose and ears atraumatic Neck: No cervical lymphadenopathy, trachea midline, supple Mouth: no lip lesion, mucus membranes moist Cardiovascular: S1S2 reg, no murmur Lungs: CTA bilateral, no rhonchi, no rales, no accessory muscle use Abdominal: soft, nondistended, nontender to palpation, no guarding Ext: muscle strength 5 out of 5 in all 4 extremities grossly, no gross muscle atrophy, no contractures, positive dorsalis pedis pulse bilateral, no edema, tenderness on deep palpation of the left and right lumbar area Neuro: CN II-XI grossly intact, no gross focal neuro deficits Psych: Alert and oriented x 3, appropriate affect and mood Assessment/Plan: Patient is a 49-year-old male with active cancer reevaluation of severe back pain that has been intolerable with oral medication and associated shortness of breath and pleuritic pain. Imaging is negative for pulmonary embolism or cardiac causes. Suspecting pain is related to her cancer. The patient is admitted with an anticipated greater than 2 midnight stay for evaluation of intractable pain Active: #. Intractable pain, cancer induced #. Lumbar spondylosis with Mild disc buldge at L5-S1 #. Pulmonary nodules #. Right thyroid nodule #. Retroperitoneal lymphadenopathy #. History of ovarian and uterine cancer, on chemotherapy CT abdomen pelvis showed no suspicious new/acute findings from prior imaging CT angiography showed no CT evidence for acute pulmonary embolism, scattered small bilateral pulmonary nodules that are stable, 1.7 cm right thyroid nodule Lumbar CT showed spondylosis of L5, mild disc bulge at L5-S1 without spinal canal stenosis Pain control with IV Dilaudid and IV ketorolac Continue with home Percocet and fentanyl patch Continue with Zofran p.o. D/c MS Contin by oncology. Given Solu-Medrol 125 mg IV in the ED 0.9 normal saline 60 cc per hour Bisacodyl as needed for constipation Consult oncology. Lidocaine patch offered. Cymbalta initated for possible depr ession. Consulted pain management, rec appreciated #. Macrocytic anemia, likely from chemotherapy MCV 100.6 hemoglobin 10.9 Check folate and B12 #. NSTEMI type II Troponin 0.035 on admission. Now less than 0.012 proBNP 64 EKG showed sinus rhythm with a rate of 85 bpm, normal axis, no ST-T changes, no arryhthmia noted. Patient not experiencing chest pain at this time. EKG as needed Will monitor for now Chronic Conditions: #. History of DVT Continue Eliquis 5 mg p.o. twice daily DVT ppx: Eliquis 5 mg p.o. twice daily CODE STATUS: Full Discussed with: Patient and patient's family Anticipated discharge place: Home Teresita Xiao MD PGY-1 Internal Medicine Dictation was produced using [employer] dictation software. please excuse any grammatical, word or spelling errors. Objective - Vital Signs Vital signs: Vital Signs Temp 98.0 F 02/05/25 07:00 Pulse 76 02/05/25 07:00 Resp 16 02/05/25 07:00 BP 101/62 02/05/25 07:00 Pulse Ox 97 02/05/25 07:00 FiO2 Intake & Output 02/04/25 02/05/25 02/05/25 18:59 06:59 18:59 Other: Voiding Method Toilet Toilet # Voids 4 2 - Labs CBC & Chem 7: 02/06/25 06:08 02/05/25 06:14 Labs: Abnormal Lab Results - Last 24 Hours (Table) 02/05/25 02/05/25 Range/Units 06:14 06:14 RBC 3.33 L (4.10-5.20) 10*6/uL Hgb 10.9 L (12.0-15.0) g/dL Hct 33.5 L (37.2-46.3) % MCV 100.6 H (80.0-97.0) fL MCH 32.7 H (27.0-32.0) pg RDW 18.6 H (11.5-14.5) % Eosinophils # 0.02 L (0.04-0.35) 10*3/uL Sodium 136 L (137-145) mmol/L Chloride 108 H (98-107) mmol/L Assessment and Plan 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
[2025-02-05] MEDS: oxyCODONE-APAP 10-325MG 1 EACH TAB PO SCH (17:22)
[2025-02-05] MEDS: LIDOCAINE 4% PATCH TOPICAL SCH (17:23)
[2025-02-06 07:22] LABS: Basophils # (A) 0.03 10*3/uL (0.00-0.10); Basophils % (A) 0.6 %; Eosinophils # (A) 0.25 10*3/uL (0.04-0.35); Eosinophils % (A) 5.2 %; Lymphocytes # (A) 0.82 10*3/uL (0.90-5.00); Lymphocytes % (A) 17.1 %; MCH 32.2 pg (27.0-32.0); MCHC 32.3 g/dL (32.0-37.0); MCV 99.7 fL (80.0-97.0); Mean Platelet Volume 9.6 fL (9.5-12.2); Monocytes # (A) 0.45 10*3/uL (0.20-1.00); Monocytes % (A) 9.4 %; Neutrophils # (A) 3.22 10*3/uL (1.80-7.70); Neutrophils % (A) 67.3 %; Platelet Count 251 10*3/uL (140-440); RBC 3.11 10*6/uL (4.10-5.20); RDW 17.8 % (11.5-14.5); WBC 4.79 10*3/uL (4.50-10.00)
--- NOTE | 2025-02-06 15:46 | P.PN ---
Subjective Progress Note Date: 02/06/25 Patient is a 49-year-old female with history of ovarian cancer and uterine cancer (last chemotherapy around November 2024, Dr. Darrius Newberry), DVT (on eliquis), history of tubal ligation here for evaluation of back pain. Patient reported that she is experiencing severe back pain 10/10 aching radiating to the lower abdomen with associated pleuritic pain when she takes an of breath. She has tried her home pain medications but they have not improved her pain despite increasing the frequency of intake. She denied chest pain, palpitations, focal weakness, vision changes, speech changes, diaphoresis, changes in urination or defecation. no bleeding or bruising. She was recently admitted 12/30 for possible radiation-induced enteritis and new left lower extremity DVT. Required TPN during admission. Placed was on Eliquis. On admission: Vitals: Temp 98.1, DE 75, RR 20, BP 141/98, O2 saturation 99% on room air Labs: WBC 5.76, hemoglobin 12.4, MCV 99.7, sodium 136, potassium 3.9, bicarb 21, BUN 6, creatinine 0.48, glucose 82, calcium 10.2, phosphorus 3.7, magnesium 1.7, AST 56, ALT 61, alk phos 287, albumin 3.1. Troponin 0.035. Urinalysis showed greater than 1.05 specific gravity, negative glucose, +1 ketones, negative nitrites, negative leukocyte esterase. Imaging: EKG showed sinus rhythm with a rate of 85 bpm, normal axis, normal QRS duration, no ST-T changes, QTc 398 MS QTc [address] angiography showed no CT evidence for acute pulmonary embolism, mild emphysematous changes without acute pulmonary process, scattered small bilateral pulmonary nodules that are stable, 1.7 cm right thyroid nodule CT abdomen pelvis showed no suspicious new/acute findings from prior imaging. 02/05/2025 patient seen and examined at bedside. Pain improving 9/10 intesity today per patient Labs: WBC 5.8, hemoglobin 10.9, platelet count 297,000, sodium 136, potassium 4, chloride 108, BUN 10, creatinine 0.52, glucose 95, calcium 10 Imaging; pelvis CT showed eccentric fluid collection within the endometrial canal with underlying fibroid or mass within the uterine body. Lumbar CT showed spondylosis of L5, mild disc bulge at L5-S1 without spinal canal stenosis 02/06/2025 patient seen and examined at bedside. Pain improving per patient but still around 8-9 out of 10. Generalized abdominal ache per patient. Labs: 4.79, hemoglobin 10, MCV 99.7, platelet count 251,000 Review of systems: Pertinent positives and negatives as discussed in HPI, a complete review of systems was performed and all other systems are negative. Social history: Tobacco: Denied history of tobacco intake Alcohol: Denied history of alcohol use Recreational drugs: Denied history of recreational or illicit drug use Travel: No recent prolonged travel Physical examination: Vital signs reviewed General: non toxic, no distress, appears older than stated age, thin and frail appearing, on room air Derm: no unusual rashes/lesions, warm Head: atraumatic, normocephalic, symmetric Eyes: EOMI, anicteric sclera, pupils equal round reactive to light ENT: Nose and ears atraumatic Neck: No cervical lymphadenopathy, trachea midline, supple Mouth: no lip lesion, mucus membranes moist Cardiovascular: S1S2 reg, no murmur Lungs: CTA bilateral, no rhonchi, no rales, no accessory muscle use Abdominal: soft, nondistended, nontender to palpation, no guarding Ext: muscle strength 5 out of 5 in all 4 extremities grossly, no gross muscle atrophy, no contractures, positive dorsalis pedis pulse bilateral, no edema, tenderness on deep palpation of the left and right lumbar area Neuro: CN II-XI grossly intact, no gross focal neuro deficits Psych: Alert and oriented x 3, appropriate affect and mood Assessment/Plan: Patient is a 49-year-old male with active cancer reevaluation of severe back pain that has been intolerable with oral medication and associated shortness of breath and pleuritic pain. Imaging is negative for pulmonary embolism or cardiac causes. Suspecting pain is related to her cancer. The patient is admitted with an anticipated greater than 2 midnight stay for evaluation of intractable pain Active: #. Intractable pain, cancer induced #. Lumbar spondylosis with Mild disc buldge at L5-S1 #. Pulmonary nodules #. Right thyroid nodule #. Retroperitoneal lymphadenopathy #. History of ovarian and uterine cancer, on chemotherapy CT abdomen pelvis showed no suspicious new/acute findings from prior imaging CT angiography showed no CT evidence for acute pulmonary embolism, scattered small bilateral pulmonary nodules that are stable, 1.7 cm right thyroid nodule Lumbar CT showed spondylosis of L5, mild disc bulge at L5-S1 without spinal canal stenosis Pain control with IV Dilaudid and IV ketorolac Continue with home Percocet [id number] Increased fentanyl patch dose to 100 mcg per 72 hours Continue with Zofran p.o. Discontinued IV fluids Bisacodyl as needed for constipation Consult oncology. Lidocaine patch offered. Cymbalta initated for possible depression. Consulted pain management, rec appreciated #. Macrocytic anemia, likely from chemotherapy MCV 99.7 hemoglobin 10 B12 WNL Folate pending #. NSTEMI type II Troponin 0.035 on admission. Now less than 0.012 proBNP 64 EKG showed sinus rhythm with a rate of 85 bpm, normal axis, no ST-T changes, no arryhthmia noted. Patient not experiencing chest pain at this time. EKG as needed Will monitor for now Chronic Conditions: #. History of DVT Continue Eliquis 5 mg p.o. twice daily DVT ppx: Eliquis 5 mg p.o. twice daily CODE STATUS: Full Discussed with: Patient and patient's family Anticipated discharge place: Home Teresita Xiao MD PGY-1 Internal Medicine Dictation was produced using [employer] dictation software. please excuse any grammatical, word or spelling errors. Attestation: I have seen and examined this patient with my resident, assessment and plan discussed with the resident, agree with assessment and plan as written above. Dr. Garcia Objective - Vital Signs Vital signs: Vital Signs Temp 98.1 F 02/05/25 23:57 Pulse 77 02/05/25 23:57 Resp 16 02/06/25 02:00 BP 116/75 02/05/25 23:57 Pulse Ox 98 02/05/25 23:57 FiO2 Intake & Output 02/05/25 02/06/25 02/06/25 18:59 06:59 18:59 Other: Voiding Method Toilet Toilet # Voids 4 2 - Labs CBC & Chem 7: 02/06/25 06:08 02/05/25 06:14 Labs: Abnormal Lab Results - Last 24 Hours (Table) 02/06/25 Range/Units 06:08 RBC 3.11 L (4.10-5.20) 10*6/uL Hgb 10.0 L (12.0-15.0) g/dL Hct 31.0 L (37.2-46.3) % MCV 99.7 H (80.0-97.0) fL MCH 32.2 H (27.0-32.0) pg RDW 17.8 H (11.5-14.5) % Lymphocytes # 0.82 L (0.90-5.00) 10*3/uL
[2025-02-07 07:44] VITALS: BP 134/79; PULSE 71; RESP 14; TEMP 97.9
[2025-02-07] MEDS: predniSONE 20 MG TAB PO SCH (09:45)
--- NOTE | 2025-02-07 09:49 | CDI ---
Documentation Clarification Form Date: 02/07/2025 08:43:00 AM From: Dara Day RN, CCDS Phone: [phone] Admit Date: 02/03/2025 11:56:00 PM Patient Name: Ines Montague Visit Number: [id number] Discharge Date: ATTENTION: The Clinical Documentation Specialists (CDI) and [facility] Coding Staff appreciate your assistance in clarifying documentation. Please respond to the clarification below the line at the bottom and electronically sign. The CDI & [facility] Coding staff will review the response and follow-up if needed. Please note: Queries are made part of the Legal Health Record. If you have any questions, please contact the author of this message via ITS. Doctor. Pearl Proctor Type II ID is documented [insert date, location] which may lack sufficient clinical evidence/support in the medical record. Additional clarification is requested. Patient history/risk factors: ovarian, uterine cancer, Clinical indicators: 49-year-old female complaint severe back low abdominal pain. She has a history of ovarian and uterine cancer. She has pain in her chest when she takes a deep breath. 02/03 VS: (20:38) 141/98 75 20 98.1 99% RA 02/04 VS: (06:58) 117/75 102 16 98.2 96% RA 02/03 Labs: WBC 5.76, hemoglobin 12.4 NA 136 bicarb 21,BUN 6, creatinine 0.48, glucose 82, calcium 10.2, 02/04 Troponin (03:50) 0.035, (07:59) <0.012 02/03 "EKG sinus rhythm 85 BPM, normal axis, normal QRS duration, no ST-T changes, QTc 398 MS QTC 398 per H/P " 02/03 CT Angiography: No acute pulmonary embolism, mild emphysematous changes without acute pulmonary process, scattered small bilateral pulmonary nodules that are stable 02/03 CT Abdomen/pelvis: No new/acute findings. Treatment: EKG as needed, Will monitor for now Ms Contin 15 MG PO Q 12 HRS 02/04-02/05 Dilaudid 1 MG IVP Q 3 HRS 02/03-02/07 After work up and study, please which diagnosis is most appropriate? [ ] Type II ID is a valid diagnosis as evidenced by the following: (specify cause) [ ] Type II ID ruled out [ ] Other, please specify [ ] Unable to determine Reference: [employer] Fourth [place] Definition of Myocardial Infraction Type II ID is indicated when an acute myocardial injury in the setting of an abnormal troponin with a rise and fall and clinical indicators suggestive of an imbalance between myocardial oxygen supply demand with acute myocardial ischemia unrelated to coronary thrombosis as evidenced by one of the following: Symptoms of myocardial ischemia New ischemic ECG changes Development of pathological Q waves Imaging evidence of new loss of viable myocardium or new regional wall motion abnormality in a pattern consistent with an ischemic etiology (Template Last Revised: August 2023) NOT MINE MTDD
--- NOTE | 2025-02-07 15:39 | P.DS ---
Providers Date of admission: 02/03/25 23:56 Attending physician: Pearl Proctor Consults: 02/03/25 23:56 Consult Physician Routine Consulting Provider: Darrius Newberry Consult Reason/Comments: known Do you want consulting provider notified?: Yes Primary care physician: Josue Spain [facility] Course: Hospital Course: Patient is a 49-year-old female with history of ovarian cancer and uterine cancer (last chemotherapy around November 2024, Dr. Darrius Newberry), DVT (on eliquis), history of tubal ligation here for evaluation of back pain. Patient reported that she is experiencing severe back pain 10/10 aching radiating to the lower abdomen with associated pleuritic pain when she takes an of breath. She has tried her home pain medications but they have not improved her pain despite increasing the frequency of intake. She denied chest pain, palpitations, focal weakness, vision changes, speech changes, diaphoresis, changes in urination or defecation. no bleeding or bruising. She was recently admitted 12/30 for possible radiation-induced enteritis and new left lower extremity DVT. Required TPN during admission. Placed was on Eliquis. On admission: Vitals: Temp 98.1, AL 75, RR 20, BP 141/98, O2 saturation 99% on room air Labs: WBC 5.76, hemoglobin 12.4, MCV 99.7, sodium 136, potassium 3.9, bicarb 21, BUN 6, creatinine 0.48, glucose 82, calcium 10.2, phosphorus 3.7, magnesium 1.7, AST 56, ALT 61, alk phos 287, albumin 3.1. Troponin 0.035. Urinalysis showed greater than 1.05 specific gravity, negative glucose, +1 ketones, negative nitrites, negative leukocyte esterase. Imaging: EKG showed sinus rhythm with a rate of 85 bpm, normal axis, normal QRS duration, no ST-T changes, QTc 398 MS QTc [address] angiography showed no CT evidence for acute pulmonary embolism, mild emphysematous changes without acute pulmonary process, scattered small bilateral pulmonary nodules that are stable, 1.7 cm right thyroid nodule CT abdomen pelvis showed no suspicious new/acute findings from prior imaging. Patient was admitted for evaluation of intractable pain likely cancer induced. IV Dilaudid and IV ketorolac, IV Zofran, IV fluids initiated on admission. Heme-onc was consulted and ordered multiple imaging to determine source of pain. Pelvis CT showed eccentric fluid collection within the endometrial canal with underlying fibroid or mass within the uterine body. Advise addition of Cymbalta for possible depression due to the pain. Lumbar CT showed spondylosis of L5, mild disc bulge at L5-S1 without spinal canal stenosis. Pain management was consulted and recommended steroid taper, increasing fentanyl patch to 100 mics per hour every 3 days, Percocet [id number] for the next 2 days. Lidocaine patch was also ordered for pleuritic pain. Patient's pain improved throughout hospital stay. No new complications occurred throughout her hospital stay. Patient is cleared for discharge today. Aside from mentioned adjustments to her pain medications, celecoxib as needed was also added to her regimen. Advised to follow-up with her PCP and oncologist on outpatient basis. Final Diagnosis: #. Intractable pain, cancer induced #. Lumbar spondylosis with Mild disc buldge at L5-S1 #. Pulmonary nodules #. Right thyroid nodule #. Retroperitoneal lymphadenopathy #. History of ovarian and uterine cancer, on chemotherapy #. Macrocytic anemia, likely from chemotherapy #. NSTEMI type II #. History of DVT Physical examination: Vital signs reviewed General: non toxic, no distress, appears older than stated age, thin and frail appearing, on room air Derm: no unusual rashes/lesions, warm Head: atraumatic, normocephalic, symmetric Eyes: EOMI, anicteric sclera, pupils equal round reactive to light ENT: Nose and ears atraumatic Neck: No cervical lymphadenopathy, trachea midline, supple Mouth: no lip lesion, mucus membranes moist Cardiovascular: S1S2 reg, no murmur Lungs: CTA bilateral, no rhonchi, no rales, no accessory muscle use Abdominal: soft, nondistended, nontender to palpation, no guarding Ext: muscle strength 5 out of 5 in all 4 extremities grossly, no gross muscle atrophy, no contractures, positive dorsalis pedis pulse bilateral, no edema Neuro: CN II-XI grossly intact, no gross focal neuro deficits Psych: Alert and oriented x 3, appropriate affect and mood Attestation: I have seen and examined this patient with my resident, assessment and plan dis cussed with the resident, agree with assessment and plan as written above. Dr. Garcia Patient Condition at Discharge: Stable Plan - Discharge Summary Discharge Rx Participant: No New Discharge Prescriptions: New Celecoxib 200 mg PO BID PRN #30 cap PRN Reason: Mild Breakthrough Pain (1-3) fentaNYL 100MCG/HR PATCH [Duragesic 100MCG/HR] 1 patch TRANSDERM Q72H #10 patch Lidocaine 4% Patch 1 patch TOPICAL Q24H #30 patch predniSONE See Taper PO DAILY #30 tab DULoxetine HCL [Cymbalta] 20 mg PO DAILY #30 cap Folic Acid 1 mg PO DAILY #0 tab Continue Multivitamins, Thera [Multivitamin (formulary)] 1 tab PO DAILY Megestrol [Megace] 40 mg PO BID #60 tab Pantoprazole Sodium [Protonix] 20 mg PO DAILY #30 tab Apixaban [Eliquis] 5 mg PO BID #60 tab Ondansetron [Zofran] 4 mg PO Q6H PRN PRN Reason: Nausea Docusate [Colace] 100 mg PO BID #60 cap oxyCODONE-APAP 10-325MG [Percocet 10-325 mg] 1 tab PO Q4H Discontinued fentaNYL 50MCG/HR PATCH [Duragesic 50MCG/HR] 1 patch TRANSDERM Q72H #1 patch Discharge Medication List Multivitamins, Thera [Multivitamin (formulary)] 1 tab PO DAILY 12/31/24 [History] Ondansetron [Zofran] 4 mg PO Q6H PRN 12/31/24 [History] Apixaban [Eliquis] 5 mg PO BID #60 tab 01/23/25 [Rx] Docusate [Colace] 100 mg PO BID #60 cap 01/23/25 [Rx] Megestrol [Megace] 40 mg PO BID #60 tab 01/23/25 [Rx] Pantoprazole Sodium [Protonix] 20 mg PO DAILY #30 tab 01/23/25 [Rx] oxyCODONE-APAP 10-325MG [Percocet 10-325 mg] 1 tab PO Q4H 02/04/25 [History] Celecoxib 200 mg PO BID PRN #30 cap 02/07/25 [Rx] DULoxetine HCL [Cymbalta] 20 mg PO DAILY #30 cap 02/07/25 [Rx] Folic Acid 1 mg PO DAILY #0 tab 02/07/25 [Rx] Lidocaine 4% Patch 1 patch TOPICAL Q24H #30 patch 02/07/25 [Rx] fentaNYL 100MCG/HR PATCH [Duragesic 100MCG/HR] 1 patch TRANSDERM Q72H #10 patch 02/07/25 [Rx] predniSONE See Taper PO DAILY #30 tab 02/07/25 [Rx] Follow up Appointment(s)/Referral(s): Asim Simon [STAFF PHYSICIAN] - 1 Week Josue Spain [Primary Care Provider] - 1-2 days Patient Instructions/Handouts: Pain Management (DC) Discharge Disposition: HOME SELF-CARE
== END 2025-02-07 14:07 | disposition home or self-care (01) | DRG 861 ==
LOC: EC 19:31 → 6NMEDSUR 23:56 → OBSVTOIN 23:56 → 6NMEDSUR 02-04 00:55
PROVIDERS: ADMIT Hospitalist; ATTEND Hospitalist
DX: G89.3 Neoplasm related pain (acute) (chronic) (principal); E04.1 Nontoxic single thyroid nodule; I21.A1 Myocardial infarction type 2; C56.9 Malignant neoplasm of unspecified ovary; M47.816 Spondylosis without myelopathy or radiculopathy, lumbar region; N95.1 Menopausal and female climacteric states; R91.8 Other nonspecific abnormal finding of lung field; Y84.2 Radiological procedure and radiotherapy as the cause of abnormal reaction of the patient, or of later complication, without mention of misadventure at the time of the procedure; C53.9 Malignant neoplasm of cervix uteri, unspecified; C7A.1 Malignant poorly differentiated neuroendocrine tumors; C7B.8 Other secondary neuroendocrine tumors; D72.819 Decreased white blood cell count, unspecified; R59.0 Localized enlarged lymph nodes; D64.81 Anemia due to antineoplastic chemotherapy; T45.1X5A Adverse effect of antineoplastic and immunosuppressive drugs, initial encounter; Z79.1 Long term (current) use of non-steroidal anti-inflammatories (NSAID); Z79.899 Other long term (current) drug therapy; Z79.01 Long term (current) use of anticoagulants; Z86.718 Personal history of other venous thrombosis and embolism; Z87.891 Personal history of nicotine dependence; Z51.5 Encounter for palliative care; Z79.52 Long term (current) use of systemic steroids; Z79.891 Long term (current) use of opiate analgesic
CPT/HCPCS: 36415; 71275; 72132; 72193; 74177; 80048; 80053; 81003; 82607; 82747; 83605; 83735; 83880; 84100; 84484; 85025; 85379; 85610; 85730; 93005; 94640; 94760; 96361; 96374; 96375; 96376; 99285

== ENCOUNTER → 2025-03-21 | Outpatient (CLI) | payer OTHER ==
[2025-03-21 10:19] LABS: African American GFR (CKD) >90 (>60 ml/min/1.73 sqM); Blood Urea Nitrogen 5 mg/dL (7-17); Non-African American GFR(CKD) >90 (>60 ml/min/1.73 sqM)
--- NOTE | 2025-03-21 23:13 | CT ---
EXAMINATION TYPE: CT ChestAbdPelvis w con DATE OF EXAM: 03/21/2025 11:48 AM COMPARISON: None. CLINICAL INDICATION: Female, 49 years old with history of C7A.1 NEUROENDCRINE TUMOR, Neuroedocrine tu mor TECHNIQUE: CT ChestAbdPelvis w con , with sagittal coronal reformats. If MIP/3-D images were created, there are created on a separate workstation. Contrast used:100 mL of Isovue 300 with IV Contrast, (none if empty) Oral contrast used: with Oral Contrast (none if empty) CT DLP: 542.7 mGycm, Automated exposure control for dose reduction was used. FINDINGS: CT CHEST: Small hypodensities are within the thyroid. This could be further evaluated with ultrasound. There is a 0.5 cm nodule on the lung windows image 36 mid left posterior lung. A second smaller nodule sligh tly smaller superior. Additional punctate nodules are present within the mid and upper lung davila f ollow-up exam in 6 months is recommended. No enlarged mediastinal or hilar adenopathy is evident. No significant coronary artery calcification s. The ascending aorta diameter at the level of the main pulmonary artery is 2.9 cm. The main pulmonary artery diameter at the bifurcation is 2.3 cm. No significant coronary artery calcification present. CT ABDOMEN: Liver: Normal Spleen: Normal Pancreas: Normal Adrenal glands: The adrenal glands are normal. Gallbladder: Normal Kidneys: No masses are evident. No hydronephrosis is present. No cysts are present. Delayed images were obtained through the kidneys, which remain unremarkable. Aorta: Vascular calcification is within the aorta. Inferior vena cava: Not well visualized. Matted adenopathy surrounds the aorta. Differential could fluid or retroperitoneal fibrosis. CT PELVIS: Loops of bowel within the abdomen and pelvis are normal. There are loops of bowel which are incom pletely distended or lack oral contrast limiting their evaluation. Appendix: Normal as visualized. Urinary bladder: Normal. Genitourinary structures: Concentric hypodensity within the uterus is again evident. Osseous structures: No suspicious lytic or sclerotic lesions. IMPRESSION: 1. Retroperitoneal fibrosis versus matted adenopathy surrounding the aorta and adjacent to the inferi or vena cava. 2. Multiple punctate lung nodules present bilaterally. The largest measures 0.5 cm in the mid medial posterior left lung [facility], , 03/21/2025 11:11 PM
== END | disposition home or self-care (01) ==
LOC: RADCTMAIN 09:26
PROVIDERS: ATTEND Internal Medicine Hematology & Oncology
DX: C7A.1 Malignant poorly differentiated neuroendocrine tumors (principal); C53.0 Malignant neoplasm of endocervix; G89.3 Neoplasm related pain (acute) (chronic); R91.8 Other nonspecific abnormal finding of lung field
CPT/HCPCS: 82565; 84520; 71260; 74177; 36415; Q9967